=== PATIENT | male | born 1955 | race Caucasian/White ===

== ENCOUNTER → 2018-03-26 | Outpatient (CLI) | payer OTHER ==
[~2018-03-26] MED LIST: ALL300 PO; ASPI325T39 PO; B-COTAB18 PO; HYDR25TA5 PO; INSU1INJ15 SC; LOSA100T65 PO; METF-384 PO; MULT-513 PO; OMEG10007 PO; OMEP20CA9 PO; VITA400C15 PO; potassium PO
== END | disposition home or self-care (01) ==
LOC: C.PATHSPEC 17:29
PROVIDERS: ATTEND Physician Assistant
DX: L28.0 Lichen simplex chronicus (principal)

== ENCOUNTER 2024-03-09 11:08 | Inpatient (IN) ==
--- NOTE | 2024-03-09 11:20 | Emergency Department Note ---
Impression & Plan Sepsis, Acute hypokalemia, Hypomagnesemia, Leukocytosis, Elevated lactic acid level, Acute hypoxemic respiratory failure, Acute dyspnea ED Provider Note HISTORY OF PRESENT ILLNESS: Patient is a 68-year-old male presenting with shortness of breath and lethargy. Patient presents with EMS. Patient reports that he has been running a fever at home for the last few days. He reports that his called 911 today because "she thought I was dying." EMS reports that called due to patient's lethargic behavior. Patient was 84% on room air on EMS arrival. He was placed on 4 L nasal cannula with improvement in his saturations. He was tachycardic and febrile and was given 4 mg of Zofran and oral Tylenol and route. On arrival to the ER, the patient denies any chest pain or shortness of breath. Denies any anticoagulation use. Denies any DVT or PE history. 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 He denies any abdominal pain, nausea or vomiting. Denies any recent travel. Denies any dysuria or hematuria. Denies any significant cough. Patient denies any lower extremity edema. ROS: as above PHYSICAL EXAM: Constitutional: Patient appears in no acute distress. HENT: Head: Normocephalic and atraumatic. Eyes: EOMI, PERRL Mouth/Throat: Mucous membranes moist. Neck: Trachea midline. Neck supple. Cardiovascular: Tachycardic with regular rhythm. No murmurs, rubs or gallops. Intact distal pulses. Pulmonary/Chest: Breath sounds clear and equal bilaterally. No appreciable wheezes. Patient is saturating 84% on room air and was placed on 4 L nasal cannula. Patient is conversationally dyspneic. Abdominal: Abdomen soft, no tenderness, rebound or guarding. Musculoskeletal: No edema, tenderness or deformity noted. Skin: Warm and dry. No rash, erythema, pallor or cyanosis Psychiatric: Appropriate mood and affect for situation. Neurological: Alert and keenly responsive. CN II-XII grossly intact, moving all extremities equally and fully. MDM: - Vitals signs showed fever, hypoxia and tachycardia. Patient was started on 4 L nasal cannula. Given 30 mg IV toradol for fever in ER. - History obtained via patient. History as above. - Chronic conditions affecting care: none - Differential diagnoses include, but are not limited to: UTI; pneumonia; viral syndrome; CVA; intracranial hemorrhage; bacteremia - Order placed for continuous cardiac monitoring. At this time, monitor showed rate of 115 bpm with normal sinus rhythm, per my interpretation. - External medical records reviewed. Neurology visit note dated 07/04/22 was reviewed. Patient follows in their clinic for idiopathic polyneuropathy. - EKG interpreted by myself showed normal sinus rhythm. Rate tachycardic at 116 bpm. QT 334. No acute ischemic changes. - Laboratory workup interpreted by myself showed leukocytosis (WBC 19.50) with left shift; hyponatremia (Na 132); hypokalemia (K 3.3); hyperglycemia (glucose 207); elevated lactate (2.1); hypomagnesemia (Mg 1.5); normal troponin; normal procalcitonin - VBG grossly unremarkable - CXR negative for pneumonia, per my interpretation - Viral respiratory panel negative - Lyme negative - UA negative - Blood cultures obtained - Patient given 2.5L NS and empirically started on zosyn. Patient meets sepsis criteria. - Patient given 20 mEq IV potassium and 1g IV magnesium for electrolyte replacement. - Discussion was had with adult protective caseworker about patient's case and need for admission - Hospitalist consulted for admission. Requested IV vancomycin be added to antibiotic regimen. - [facility] ASSESSMENT AND PLAN: Diagnosis: sepsis; acute dyspnea; leukocytosis; hypokalemia; hypomagnesemia; elevated lactic acid level; acute hypoxic respiratory failure Plan: admit Past Med/Surg History Social History Smoking Status: Never smoker Preferred Language: Yi Feels Safe at Home: Yes Allergies Allergies Allergy/AdvReac Type Severity Reaction Status Date / Time No Known Allergies Allergy Unverified 09/12/14 09:34 Home Meds Home Medications Medication Instructions Recorded Confirmed ASPIRIN (ASPIRIN EC) 325 mg PO DAILY ##0 09/10/14 03/09/24 B-COMPLEX VITAMINS (VITAMIN B 1 tab PO DAILY ##0 09/10/14 03/09/24 COMPLEX) Fish Oil ([place]-3) 1 cap PO DAILY #0 caps 09/10/14 03/09/24 Multivitamins/Minerals (Mvi With 1 tab PO DAILY #0 tabs 09/10/14 03/09/24 Minerals) Tocopheryl Acet,Dl-Alpha (Vitamin 400 inter.unit PO DAILY #0 caps 09/10/14 03/09/24 E) allopurinol 300 mg tablet 300 mg PO DAILY ##30 09/10/14 03/09/24 hydrochlorothiazide 25 mg tablet 25 mg PO DAILY ##30 09/10/14 03/09/24 insulin detemir U-100 100 unit/mL 0 mg SC DAILY ##15 09/10/14 03/09/24 (3 mL) subcutaneous pen (Levemir FlexPen) losartan 100 mg tablet 100 mg PO DAILY ##30 09/10/14 03/09/24 omeprazole 20 mg capsule,delayed 20 mg PO DAILY ##30 09/10/14 03/09/24 release potassium 1 tab PO DAILY ##0 09/10/14 03/09/24 amlodipine 10 mg tablet 10 mg PO DAILY 03/09/24 03/09/24 colchicine 0.6 mg tablet 0.6 mg PO TID 03/09/24 03/09/24 empagliflozin 25 mg tablet 25 mg PO DAILY 03/09/24 03/09/24 (Jardiance) glipizide 10 mg tablet, extended 10 mg PO BID 03/09/24 03/09/24 release 24 hr insulin degludec 200 unit/mL (3 26 unit subcut AMPM 03/09/24 03/09/24 mL) subcutaneous pen (Tresiba FlexTouch U-200 insulin) semaglutide 0.25 mg or 0.5 mg (2 0 mg subcut UD 03/09/24 03/09/24 mg/3 mL) subcutaneous pen injector (Ozempic) tamsulosin 0.4 mg capsule 0.4 mg PO DAILY 03/09/24 03/09/24 Results & Data (ED) Vital Signs Vital Signs - 24 hr 03/09/24 11:20 03/09/24 11:26 03/09/24 11:26 Temperature 38.1 C H Temperature Source Oral Pulse Rate 116 H 116 H Pulse Rate [Right Finger] Pulse Rhythm Regular Respiratory Rate 18 18 Respiratory Effort / Characteristics Non-Labored Spontaneous Respiratory Depth Normal Respiratory Pattern Regular Blood Pressure 131/80 Blood Pressure [Right Arm] Blood Pressure Mean 97 Blood Pressure Mean [Right Arm] Blood Pressure Position Semi-fowlers Blood Pressure Position [Right Arm] Pulse Oximetry 84 L 92 92 Oxygen Delivery Method Nasal Cannula Nasal Cannula Nasal Cannula Oxygen Flow Rate 0 4 4 Sepsis Recent Fever Within 48 Hours Yes Sepsis New/Unexplained Change in Mental Status No Sepsis Action Taken by Nursing No Action Required Oxygen Flow Rate - Titration 4 Pulse Oximetry Post Tiitration 92 03/09/24 11:26 03/09/24 11:38 03/09/24 12:21 Temperature 38.1 C H Temperature Source Oral Pulse Rate 115 H Pulse Rate [Right Finger] 116 H 110 H Pulse Rhythm Respiratory Rate 18 25 H Respiratory Effort / Characteristics Non-Labored Spontaneous Non-Labored Spontaneous Respiratory Depth Normal Normal Respiratory Pattern Regular Regular Blood Pressure Blood Pressure [Right Arm] 131/80 135/87 Blood Pressure Mean Blood Pressure Mean [Right Arm] 97 103 Blood Pressure Position Blood Pressure Position [Right Arm] Semi-fowlers Semi-fowlers Pulse Oximetry 92 95 Oxygen Delivery Method Nasal Cannula Nasal Cannula Oxygen Flow Rate 4 4 Sepsis Recent Fever Within 48 Hours Sepsis New/Unexplained Change in Mental Status Sepsis Action Taken by Nursing Oxygen Flow Rate - Titration Pulse Oximetry Post Tiitration 03/09/24 12:30 03/09/24 13:00 03/09/24 14:40 Temperature Temperature Source Pulse Rate 111 H Pulse Rate [Right Finger] 110 H 110 H Pulse Rhythm Respiratory Rate 22 22 25 H Respiratory Effort / Characteristics Non-Labored Spontaneous Non-Labored Spontaneous Respiratory Depth Normal Normal Respiratory Pattern Regular Regular Blood Pressure 121/84 Blood Pressure [Right Arm] 135/87 120/90 Blood Pressure Mean 96 Blood Pressure Mean [Right Arm] 103 100 Blood Pressure Position Blood Pressure Position [Right Arm] Semi-fowlers Pulse Oximetry 93 92 98 Oxygen Delivery Method Nasal Cannula Nasal Cannula Nasal Cannula Oxygen Flow Rate 4 4 4 Sepsis Recent Fever Within 48 Hours Sepsis New/Unexplained Change in Mental Status Sepsis Action Taken by Nursing Oxygen Flow Rate - Titration Pulse Oximetry Post Tiitration Laboratory Data 03/09/24 11:26 03/09/24 11:26 Lab Results 03/09/24 03/09/24 03/09/24 Range/Units 11:16 11:26 11:26 WBC 19.50 H (4.8-10.8) K/ul RBC 5.41 (4.70-6.10) M/uL Hgb 15.5 (14.0-18.0) g/dl Hct 44.1 (42.0-52.0) % MCV 81.5 (80.0-100.0) fL MCH 28.7 (25.0-34.0) pg MCHC 35.1 (32.0-36.0) g/dL RDW Std Deviation 41.0 (36.4-46.3) fL RDW Coeff of Celine 13.9 (11.5-14.5) % Plt Count 303 (130-400) K/uL MPV 10.0 (9.4-12.4) fL Immature Gran % (Auto) 4.7 % Neut % (Auto) 84.1 % Lymph % (Auto) 3.7 % Jerauld % (Auto) 6.5 % Eos % (Auto) 0.3 % Baso % (Auto) 0.7 % Neut # (Auto) 16.40 H (1.40-6.50) K/uL Lymph # (Auto) 0.73 L (1.20-3.40) K/uL Jerauld # (Auto) 1.26 H (0.11-0.59) K/uL Eos # (Auto) 0.06 (0.00-0.50) K/uL Baso # (Auto) 0.13 (0.00-0.20) K/uL Immature Gran # (Auto) 0.92 H (0.01-0.20) K/uL PT 11.6 (9.0-12.0) Seconds INR 1.1 (0.9-1.1) VBG pH 7.45 H (7.36-7.41) VBG pCO2 38 (38-50) mmHg VBG pO2 60 mmHg VBG HCO3 26 mmol/L VBG O2 Saturation 89.5 % VBG Base Excess 2.4 mEq/L Sodium 132 L (136-145) mmol/L Potassium 3.3 L (3.5-5.1) mmol/L Chloride 98 (98-107) mmol/L Carbon Dioxide 25 (21-32) mmol/L Anion Gap 9 (3-11) BUN 18 (6-23) mg/dl Creatinine 0.97 (0.6-1.4) mg/dl Est Cr Clr Drug Dosing 86.3 ml/min Est GFR ( Amer) 91.3 ml/min Est GFR (Non-Af Amer) 78.8 ml/min BUN/Creatinine Ratio 18.6 (10-20) Glucose 207 H (70-99(Fasting)) mg/dl Lactate 2.1 H* (0.4-2.0) mmol/L Calcium 8.9 (8.6-10.3) mg/dl Magnesium 1.5 L (1.7-2.4) mg/dl Total Bilirubin 0.6 (0.2-1.0) mg/dl Direct Bilirubin 0.2 (0-0.2) mg/dl AST 14 (13-39) U/L ALT 25 (7-52) U/L Alkaline Phosphatase 77 (34-104) U/L Troponin I High Sens 8.3 (0-20) pg/ml Total Protein 6.9 (6.0-8.3) gm/dl Albumin 4.0 (3.4-5.0) gm/dl Procalcitonin 0.37 (0-0.5) ng/ml Urine Color Urine Appearance (Clear) Urine pH (4.5-7.5) Ur Specific Burney (1.000-1.030) Urine Protein (Negative) Urine Glucose (UA) (Negative) Urine Ketones (Negative) Urine Blood (Negative) Urine Nitrite (Negative) Urine Bilirubin (Negative) Urine Urobilinogen (Negative) Ur Leukocyte Esterase (Negative) Urine WBC (Auto) (0-5) /hpf Urine RBC (Auto) (0-2) /hpf U Hyaline Cast (Auto) (0-2) /lpf U Epithel Cells (Auto) (0-2) /hpf Urine Bacteria (Auto) (None Seen) Adenovirus (PCR) Not Detected (NotDetected) Anaplasma Smear See Comment Cancelled B. pertussis DNA (PCR) Not Detected (NotDetected) B.parapertussis DNA PCR Not Detected (NotDetected) Lyme Disease Screen Negative (Negative) C. pneumoniae DNA (PCR) Not Detected (NotDetected) Coronavirus OC43 (PCR) Not Detected (NotDetected) Coronavirus HKU1 (PCR) Not Detected (NotDetected) Coronavirus 229E (PCR) Not Detected (NotDetected) SARS-CoV-2 (PCR) Not Detected (NotDetected) Coronavirus NL63 (PCR) Not Detected (NotDetected) Human Metapneumovir PCR Not Detected (NotDetected) Influenza Type A (PCR) Not Detected (NotDetected) Influenza Type B (PCR) Not Detected (NotDetected) M. pneumoniae (PCR) Not Detected (NotDetected) Parainfluenza 1 (PCR) Not Detected (NotDetected) Parainfluenza 2 (PCR) Not Detected (NotDetected) Parainfluenza 3 (PCR) Not Detected (NotDetected) Parainfluenza 4 (PCR) Not Detected (NotDetected) RSV (PCR) Not Detected (NotDetected) Entero/Rhino (PCR) Not Detected (NotDetected) 03/09/24 03/09/24 Range/Units 13:58 14:06 WBC (4.8-10.8) K/ul RBC (4.70-6.10) M/uL Hgb (14.0-18.0) g/dl Hct (42.0-52.0) % MCV (80.0-100.0) fL MCH (25.0-34.0) pg MCHC (32.0-36.0) g/dL RDW Std Deviation (36.4-46.3) fL RDW Coeff of Celine (11.5-14.5) % Plt Count (130-400) K/uL MPV (9.4-12.4) fL Immature Gran % (Auto) % Neut % (Auto) % Lymph % (Auto) % Jerauld % (Auto) % Eos % (Auto) % Baso % (Auto) % Neut # (Auto) (1.40-6.50) K/uL Lymph # (Auto) (1.20-3.40) K/uL Jerauld # (Auto) (0.11-0.59) K/uL Eos # (Auto) (0.00-0.50) K/uL Baso # (Auto) (0.00-0.20) K/uL Immature Gran # (Auto) (0.01-0.20) K/uL PT (9.0-12.0) Seconds INR (0.9-1.1) VBG pH (7.36-7.41) VBG pCO2 (38-50) mmHg VBG pO2 mmHg VBG HCO3 mmol/L VBG O2 Saturation % VBG Base Excess mEq/L Sodium (136-145) mmol/L Potassium (3.5-5.1) mmol/L Chloride (98-107) mmol/L Carbon Dioxide (21-32) mmol/L Anion Gap (3-11) BUN (6-23) mg/dl Creatinine (0.6-1.4) mg/dl Est Cr Clr Drug Dosing ml/min Est GFR ( Amer) ml/min Est GFR (Non-Af Amer) ml/min BUN/Creatinine Ratio (10-20) Glucose (70-99(Fasting)) mg/dl Lactate 1.9 (0.4-2.0) mmol/L Calcium (8.6-10.3) mg/dl Magnesium (1.7-2.4) mg/dl Total Bilirubin (0.2-1.0) mg/dl Direct Bilirubin (0-0.2) mg/dl AST (13-39) U/L ALT (7-52) U/L Alkaline Phosphatase (34-104) U/L Troponin I High Sens (0-20) pg/ml Total Protein (6.0-8.3) gm/dl Albumin (3.4-5.0) gm/dl Procalcitonin (0-0.5) ng/ml Urine Color Yellow Urine Appearance Clear (Clear) Urine pH 6.5 (4.5-7.5) Ur Specific Burney > 1.045 H (1.000-1.030) Urine Protein 1+ H (Negative) Urine Glucose (UA) 3+ H (Negative) Urine Ketones Negative (Negative) Urine Blood Negative (Negative) Urine Nitrite Negative (Negative) Urine Bilirubin Negative (Negative) Urine Urobilinogen Negative (Negative) Ur Leukocyte Esterase Negative (Negative) Urine WBC (Auto) 0-5 (0-5) /hpf Urine RBC (Auto) 0-2 (0-2) /hpf U Hyaline Cast (Auto) 0-2 (0-2) /lpf U Epithel Cells (Auto) 0-2 (0-2) /hpf Urine Bacteria (Auto) None Seen (None Seen) Adenovirus (PCR) (NotDetected) Anaplasma Smear B. pertussis DNA (PCR) (NotDetected) B.parapertussis DNA PCR (NotDetected) Lyme Disease Screen (Negative) C. pneumoniae DNA (PCR) (NotDetected) Coronavirus OC43 (PCR) (NotDetected) Coronavirus HKU1 (PCR) (NotDetected) Coronavirus 229E (PCR) (NotDetected) SARS-CoV-2 (PCR) (NotDetected) Coronavirus NL63 (PCR) (NotDetected) Human Metapneumovir PCR (NotDetected) Influenza Type A (PCR) (NotDetected) Influenza Type B (PCR) (NotDetected) M. pneumoniae (PCR) (NotDetected) Parainfluenza 1 (PCR) (NotDetected) Parainfluenza 2 (PCR) (NotDetected) Parainfluenza 3 (PCR) (NotDetected) Parainfluenza 4 (PCR) (NotDetected) RSV (PCR) (NotDetected) Entero/Rhino (PCR) (NotDetected) Administered Medications Discontinued Medications Albuterol (Albut/Ipratrop 3mg/0.5mg Neb 3 Ml Vial) 3 ml NEB NOW STA; Protocol Stop: 03/09/24 15:14 Last Admin: 03/09/24 15:19 Dose: 3 ml Documented By: MMN Sodium Chloride (Nss) 1,000 mls @ 999 mls/hr IV .Q1H1M GOPI Stop: 03/09/24 13:30 Last Infusion: 03/09/24 13:50 Dose: Infused Documented By: Admin: 03/09/24 12:24 Dose: 999 mls/hr Documented By: Infusion: 03/09/24 12:23 Dose: Infused Documented By: Admin: 03/09/24 11:21 Dose: 999 mls/hr Documented By: LMM Piperacillin Sod/Tazobactam Sod (Zosyn) 4.5 gm in 100 mls @ 200 mls/hr IV NOW ONE Stop: 03/09/24 12:36 Last Infusion: 03/09/24 13:06 Dose: Infused Documented By: Admin: 03/09/24 12:27 Dose: 200 mls/hr Documented By: LMM Sodium Chloride (Nss) 500 mls @ 999 mls/hr IV .Q31M ONE Stop: 03/09/24 12:58 Last Infusion: 03/09/24 14:00 Dose: Infused Documented By: Admin: 03/09/24 13:29 Dose: 999 mls/hr Documented By: LMM Potassium Chloride ([place] Dale / Wtr) 10 meq in 100 mls @ 100 mls/hr IV Q1H GOPI Stop: 03/09/24 14:29 Last Admin: 03/09/24 14:38 Dose: 100 mls/hr Documented By: Infusion: 03/09/24 14:38 Dose: Infused Documented By: Admin: 03/09/24 13:29 Dose: 100 mls/hr Documented By: LMPham Magnesium Sulfate/Dextrose (Magnesium Sulfate / D5w) 1 gm in 100 mls @ 100 mls/hr IV NOW STA Stop: 03/09/24 13:29 Last Infusion: 03/09/24 14:38 Dose: Infused Documented By: Admin: 03/09/24 13:29 Dose: 100 mls/hr Documented By: LMM Ioversol (Optiray 320 125ml) 118 ml IV ONCE ONE Stop: 03/09/24 13:00 Last Admin: 03/09/24 12:59 Dose: 118 ml Documented By: BELEN Ketorolac Tromethamine (Ketorolac 30 Mg/Ml Vial) 30 mg IV NOW ONE Stop: 03/09/24 12:31 Last Admin: 03/09/24 13:18 Dose: 30 mg Documented By: LMM Imaging Data Radiologist's Impression: Chest X-Ray 03/09/24 11:16 SINGLE VIEW CHEST CLINICAL HISTORY: Sepsis. FINDINGS: 2 AP, portable, upright chest radiographs are obtained. No prior studies are available for comparison at the time of dictation. The examination is degraded by portable technique, apical lordotic positioning, and patient rotation. The heart is enlarged noting atherosclerotic calcification of the thoracic aorta. The pulmonary vasculature is noncongested. There is bibasilar scarring/atelectasis. The lungs and pleural spaces are otherwise clear. No pneumothorax is seen. The skeletal structures are osteopenic. The bony thorax is grossly intact. IMPRESSION: Cardiomegaly with no acute cardiopulmonary abnormality identified. ACT 112: Negative or not required by law. Electronically signed by: Jaspreet Jean M.D. 03/09/2024 11:50 AM Chest CTA 03/09/24 12:30 CT ANGIOGRAM OF THE CHEST CLINICAL HISTORY: Dyspnea. Hypoxia. COMPARISON STUDY: Chest x-ray dated 03/09/2024. TECHNIQUE: Following the IV administration of 118 cc of Optiray 320, CT angiogram of the chest was performed from the upper abdomen to the thoracic inlet utilizing the pulmonary embolus protocol. Images are reviewed in the axial, sagittal, and coronal planes. 3-D MIPS images are created and assessed. IV contrast was administered without complication. A dose lowering technique was utilized adhering to the principles of ALARA. CT DOSE: 933.46 mGy.cm FINDINGS: Thyroid: Imaged portions of the thyroid gland are normal in size and attenuation. Thoracic aorta: There is mild atherosclerotic calcification of the thoracic aorta, which is normal in caliber and demonstrates standard 3-vessel arch anatomy. No dissection is seen. Pulmonary vasculature: The pulmonary trunk is normal in caliber. There are no filling defects identified in main, lobar, or segmental pulmonary branches to suggest pulmonary embolus. Heart: The heart is enlarged and without pericardial effusion. The coronary arteries are densely calcified. Lungs and pleural spaces: Evaluation of the lung parenchyma is degraded by motion artifact. There is no airspace consolidation or pleural effusion. Dependent scarring/atelectasis is noted at both lung bases. The trachea and central airways are clear. Mediastinum: There is no mediastinal lymphadenopathy. Gretel: Clear. Axillae: There is no axillary lymphadenopathy. Upper abdomen: There are calcified gallstones with no CT evidence of acute cholecystitis. The liver is steatotic. The spleen is enlarged measuring 15.3 cm in length. A small hiatal hernia is noted. Skeletal structures: No lytic or blastic bony lesions are seen. Degenerative change is noted in the shoulders and spine. IMPRESSION: 1. There is no evidence of pulmonary embolus in the main, lobar, or segmental pulmonary arteries. 2. Cardiomegaly noting advanced coronary artery atherosclerosis. 3. No airspace consolidation or pleural effusion is identified. 4. Cholelithiasis. 5. Hepatic steatosis and splenomegaly. 6. Additional findings as above. ACT 112: Negative or not required by law. Electronically signed by: Jaspreet Jean M.D. 03/09/2024 1:44 PM Discharge Plan Visit Data Chief Complaint: Illness Stated Complaint: ILLNESS, SOB ED Provider: Laura Ashley Discharge Problem: Sepsis, Acute hypokalemia, Hypomagnesemia, Leukocytosis, Elevated lactic acid level, Acute hypoxemic respiratory failure, Acute dyspnea Forms Stand Alone Forms: My [facility] Prescriptions Prescriptions: No Action ASPIRIN (ASPIRIN EC) 325 MG tablet 325 mg PO DAILY Qty: 0 Patient Comments: Placed on Hold since 09/09 due to nose bleed Rx Instructions: unable to verify. OTC 03/09/24 B-COMPLEX VITAMINS (VITAMIN B COMPLEX) 1 TAB tablet 1 tab PO DAILY Qty: 0 Rx Instructions: unable to verify. OTC 03/09/24 omeprazole 20 mg Capsule,Delayed Release(Dr/Ec) 20 mg PO DAILY Qty: 30 allopurinol 300 mg Tablet 300 mg PO DAILY Qty: 30 hydrochlorothiazide 25 mg Tablet 25 mg PO DAILY Qty: 30 losartan 100 mg Tablet 100 mg PO DAILY Qty: 30 Levemir FlexPen 100 unit/mL (3 mL) Insulin Pen 0 mg SC DAILY Qty: 15 Rx Instructions: on hold on pharmacy list 03/09/24 34 units bid or as directed Fish Oil ([place]-3) 1 EA capsule 1 cap PO DAILY Qty: 0 Rx Instructions: unable to verify. OTC 03/09/24 Multivitamins/Minerals (Mvi With Minerals) tablet 1 tab PO DAILY Qty: 0 Rx Instructions: unable to verify. OTC 03/09/24 Tocopheryl Acet,Dl-Alpha (Vitamin E) 400 INTER.UNIT capsule 400 inter.unit PO DAILY Qty: 0 Rx Instructions: unable to verify. OTC 03/09/24 potassium 1 tab PO DAILY Qty: 0 Rx Instructions: unable to verify. 03/09/24 glipizide 10 mg tablet extended release 24hr 10 mg PO BID Rx Instructions: 30 mins before morning and evening meals. tamsulosin 0.4 mg capsule 0.4 mg PO DAILY amlodipine 10 mg tablet 10 mg PO DAILY colchicine 0.6 mg tablet 0.6 mg PO TID insulin degludec [Tresiba FlexTouch U-200] 200 unit/mL (3 mL) insulin pen 26 unit SUBCUT AMPM Jardiance 25 mg tablet 25 mg PO DAILY Ozempic 0.25 mg or 0.5 mg (2 mg/3 mL) pen injector 0 mg SUBCUT UD Rx Instructions: 0.25 mg weekly for 4 weeks, then increase to 0.5 mg weekly Referrals Referrals: PCP,NO [Physician] -
[2024-03-09] MEDS: SODIUM CHLORIDE 0.9% 1,000 ML IV SCH (11:21)
[2024-03-09 11:43] LABS: Base Excess VBG 2.4 mEq/L; HCO3 VBG 26 mmol/L; Oxygen Saturation VBG 89.5 %; PCO2 VBG 38 mmHg (38-50); PO2 VBG 60 mmHg; pH VBG 7.45 (7.36-7.41)
--- NOTE | 2024-03-09 11:52 | XRay Report ---
SINGLE VIEW CHEST CLINICAL HISTORY: Sepsis. FINDINGS: 2 AP, portable, upright chest radiographs are obtained. No prior studies are available for comparison at the time of dictation. The examination is degraded by portable technique, apical lordot ic positioning, and patient rotation. The heart is enlarged noting atherosclerotic calcification of t he thoracic aorta. The pulmonary vasculature is noncongested. There is bibasilar scarring/atelectasis . The lungs and pleural spaces are otherwise clear. No pneumothorax is seen. The skeletal structures are osteopenic. The bony thorax is grossly intact. IMPRESSION: Cardiomegaly with no acute cardiopulmonary abnormality identified. ACT 112: Negative or not required by law. Electronically signed by: Jaspreet Jean M.D. 03/09/2024 11:50 AM
[2024-03-09 12:06] LABS: Basophils # (auto) 0.13 K/uL (0.00-0.20); Basophils % (auto) 0.7 %; Eosinophils # (auto) 0.06 K/uL (0.00-0.50); Eosinophils % (auto) 0.3 %; Hematocrit (blood only) 44.1 % (42.0-52.0); Hemoglobin 15.5 g/dl (14.0-18.0); Immature Granulocytes # (auto) 0.92 K/uL (0.01-0.20); Immature Granulocytes % (auto) 4.7 %; Lymphocytes # (auto) 0.73 K/uL (1.20-3.40); Lymphocytes % (auto) 3.7 %; Mean Corpuscular Hemoglobin 28.7 pg (25.0-34.0); Mean Corpuscular Hgb Conc 35.1 g/dL (32.0-36.0); Mean Corpuscular Volume 81.5 fL (80.0-100.0); Monocytes # (auto) 1.26 K/uL (0.11-0.59); Monocytes % (auto) 6.5 %; Neutrophils % (auto) 84.1 %; Platelet Count 303 K/uL (130-400); RDW Coefficient of Variation 13.9 % (11.5-14.5); Red Blood Count 5.41 M/uL (4.70-6.10)
[2024-03-09 12:14] LABS: BUN Creatinine Ratio 18.6 (10-20); Bilirubin Direct 0.2 mg/dl (0-0.2); Bilirubin,Total 0.6 mg/dl (0.2-1.0); Calcium 8.9 mg/dl (8.6-10.3); Creatinine Clr Calc Pharmacy 86.3 ml/min; Est GFR (African American) 91.3 ml/min; Est GFR (Non-African American) 78.8 ml/min; Magnesium 1.5 mg/dl (1.7-2.4); Potassium 3.3 mmol/L (3.5-5.1); Total Protein 6.9 gm/dl (6.0-8.3)
[2024-03-09 12:20] LABS: Troponin I High Sensitivity 8.3 pg/ml (0-20)
[2024-03-09 12:24] LABS: INR 1.1 (0.9-1.1); Prothrombin Time 11.6 Seconds (9.0-12.0)
[2024-03-09] MEDS ORDERED: ETOMIDATE 2 MG/ML 20 ML VIAL IV ONE (12:25)
[2024-03-09] MEDS ORDERED: ROCURONIUM BROMIDE 10 MG/ML 5 ML VIAL IV ONE (12:25)
[2024-03-09] MEDS: PIPERACILLIN/TAZOBACTAM 4.5 GM/100 ML BAG IV ONE (12:27)
[2024-03-09] MEDS: OPTIRAY 320 125ml IV ONE (12:59)
[2024-03-09] MEDS: KETOROLAC 30 MG/ML VIAL IV ONE (13:18)
[2024-03-09] MEDS: MAGNESIUM SULFATE / D5W 1 GM/100 ML BAG IV STA (13:29)
[2024-03-09] MEDS: SODIUM CHLORIDE 0.9% 500 ML IV ONE (13:29)
[2024-03-09] MEDS: POTASSIUM CHLORIDE / WTR 10 MEQ/100 ML PLCT IV SCH (13:29)
--- NOTE | 2024-03-09 13:35 | Electrocardiogram Report ---
Test Reason : Blood Pressure : / mmHG Vent. Rate : 116 BPM Atrial Rate : 116 BPM P-R Int : 174 ms QRS Dur : 090 ms QT Int : 334 ms P-R-T Axes : 034 011 -11 degrees QTc Int : 464 ms Sinus tachycardia Nonspecific ST abnormality Otherwise normal ECG No previous ECGs available Confirmed by Pacheco Montgomery ([id number]) on 03/09/2024 1:35:14 PM Referred By: REFERRED SELF Confirmed By:Parag Montgomery
--- NOTE | 2024-03-09 13:45 | CT Scan Report ---
CT ANGIOGRAM OF THE CHEST CLINICAL HISTORY: Dyspnea. Hypoxia. COMPARISON STUDY: Chest x-ray dated 03/09/2024. TECHNIQUE: Following the IV administration of 118 cc of Optiray 320, CT angiogram of the chest was pe rformed from the upper abdomen to the thoracic inlet utilizing the pulmonary embolus protocol. Images are reviewed in the axial, sagittal, and coronal planes. 3-D MIPS images are created and assessed. I V contrast was administered without complication. A dose lowering technique was utilized adhering to the principles of ALARA. CT DOSE: 933.46 mGy.cm FINDINGS: Thyroid: Imaged portions of the thyroid gland are normal in size and attenuation. Thoracic aorta: There is mild atherosclerotic calcification of the thoracic aorta, which is normal in caliber and demonstrates standard 3-vessel arch anatomy. No dissection is seen. Pulmonary vasculature: The pulmonary trunk is normal in caliber. There are no filling defects identif ied in main, lobar, or segmental pulmonary branches to suggest pulmonary embolus. Heart: The heart is enlarged and without pericardial effusion. The coronary arteries are densely calc ified. Lungs and pleural spaces: Evaluation of the lung parenchyma is degraded by motion artifact. There is no airspace consolidation or pleural effusion. Dependent scarring/atelectasis is noted at both lung b ases. The trachea and central airways are clear. Mediastinum: There is no mediastinal lymphadenopathy. Gretel: Clear. Axillae: There is no axillary lymphadenopathy. Upper abdomen: There are calcified gallstones with no CT evidence of acute cholecystitis. The liver i s steatotic. The spleen is enlarged measuring 15.3 cm in length. A small hiatal hernia is noted. Skeletal structures: No lytic or blastic bony lesions are seen. Degenerative change is noted in the s houlders and spine. IMPRESSION: 1. There is no evidence of pulmonary embolus in the main, lobar, or segmental pulmonary arteries. 2. Cardiomegaly noting advanced coronary artery atherosclerosis. 3. No airspace consolidation or pleural effusion is identified. 4. Cholelithiasis. 5. Hepatic steatosis and splenomegaly. 6. Additional findings as above. ACT 112: Negative or not required by law. Electronically signed by: Jaspreet Jean M.D. 03/09/2024 1:44 PM
[2024-03-09 14:32] LABS: Appearance Urine Clear (Clear); Bacteria Urine Automated None Seen (None Seen); Bilirubin Urine Negative (Negative); Blood Urine Negative (Negative); Cast Urine Automated 0-2 /lpf (0-2); Color Urine Yellow; Epithelial Cell Urine Auto 0-2 /hpf (0-2); Glucose Urine UA 3+ (Negative); Ketones Urine Negative (Negative); Leukocyte Esterase Urine Negative (Negative); Nitrite Urine Negative (Negative); Protein Urine 1+ (Negative); RBC Urine Automated 0-2 /hpf (0-2); Specific Gravity Urine > 1.045 (1.000-1.030); Urobilinogen Urine Negative (Negative); WBC Urine Automated 0-5 /hpf (0-5); pH Urine 6.5 (4.5-7.5)
[2024-03-09 14:58] LABS: Adenovirus PCR Not Detected (NotDetected); Bordetella parapertussis PCR Not Detected (NotDetected); Bordetella pertussis PCR Not Detected (NotDetected); Chlamydia pneumoniae PCR Not Detected (NotDetected); Coronavirus 229E PCR Not Detected (NotDetected); Coronavirus CoV-2 (COVID19)PCR Not Detected (NotDetected); Coronavirus HKU1 PCR Not Detected (NotDetected); Coronavirus NL63 PCR Not Detected (NotDetected); Coronavirus OC43PCR Not Detected (NotDetected); Human Metapneumovirus PCR Not Detected (NotDetected); Influenza A PCR Not Detected (NotDetected); Influenza B PCR Not Detected (NotDetected); Mycoplasma pneumoniae PCR Not Detected (NotDetected); Parainfluenza Virus 1 PCR Not Detected (NotDetected); Parainfluenza Virus 2 PCR Not Detected (NotDetected); Parainfluenza Virus 3 PCR Not Detected (NotDetected); Parainfluenza Virus 4 PCR Not Detected (NotDetected); Respiratory Syncytial VirusPCR Not Detected (NotDetected); Rhinovirus/Enterovirus PCR Not Detected (NotDetected)
[2024-03-09] MEDS: ALBUT/IPRATROP 3MG/0.5MG NEB 3 ML VIAL NEB STA (15:19)
[2024-03-09] MEDS ORDERED: VANCOMYCIN CONSULT ACTIVE PRN (15:33)
--- OUTSIDE RECORDS SUMMARY | 2024-03-09 15:41 | External Medical Summary | Summary of Care ---
Author Name Unknown Organization [facility] Address [address] [place] [address] Phone [phone] Care Team Providers Care Nutrition Internship Name Role Phone Brent Johnson DO Primary Care Provider [phone] Reason for Visit * Reason Comments eRx-Medication Refill Encounter Details Date Type Department Care Team (Late st Contact Info) Description 12/10/2023 Telephone Family Practice [facility] [address] [place] [address] Kathryn Sierra PA-C [address] [place] [address] eRx-Medication Refill Allergies Active Allergy Reactions Criticality Noted Date Comments Atorvastatin Other (Please comment) 04/19/2016 Severe joint pain. documented as of this encounter (statuses as of 12/16/2023) Medications Medication Sig Dispensed Refills Start Date End Date Status Blood Glucose Monitoring Suppl (ACCU-CHEK GUIDE) w/Device KIT Use as directed. Use as directed 3 times a day. Diagnosis: E11.9 1 Kit 0 04/26/2019 Active ACCU-CHEK FASTCLIX LANCETS MISC Use as directed 3 times a day. Diagnosis: E11.9 306 Each 3 04/26/2019 Active Ibuprofen 800 MG Oral Tablet (MOTRIN)Indication s:Gout TAKE 1 TABLET BY MOUTH THREE TIMES DAILY WITH MEALS NEEDED 100 Tab 3 08/17/2020 Active Aspirin 325 MG Oral Tablet Take 1 Tablet by mouth in the morning. 0 Active B Complex 100 TR Oral Tablet Extended Release Take by mouth . 0 Active Multi-Vitamin Daily Oral Tablet Take 1 Tablet by mouth in the morning. 0 Active Potassium 75 MG Oral Tablet Take 1 Tablet by mouth in the morning. 0 Active Vitamin E 400 UNIT Oral Tablet Take 1 Tablet by mouth in the morning. 0 Active EQL Fiber Laxative 625 MG Oral Tablet (Calcium Polycarbophil) Take 1 Tablet by mouth in the morning. 0 Active Omeprazole 20 MG Oral Capsule Delayed Release (PriLOSEC)Indicati ons:GERD (gastroesophageal reflux disease) TAKE 1 CAPSULE BY MOUTH DAILY 30 Capsule 5 05/21/2023 Active Allopurinol 300 MG Oral Tablet (Zyloprim)Indicati ons:Gout TAKE 1 TABLET BY MOUTH ONCE DAILY 30 Tablet 5 05/21/2023 Active OneTouch Ultra In Vitro Strip (Glucose Blood) USE DIRECTED 3 TIMES A DAY. 300 Strip 1 06/27/2023 Active BD Pen Needle Mini U/F 31G X 5 MM (Insulin Pen Needle) USE TWICE A DAY. 200 Each 1 07/23/2023 Active Tamsulosin HCl 0.4 MG Oral Capsule (Flomax) TAKE 1 CAPSULE BY MOUTH DAILY 90 Capsule 2 08/21/2023 Active Losartan Potassium 100 MG Oral Tablet (Cozaar)Indication s:HTN, goal below 140/90 TAKE ONE TABLET BY MOUTH DAILY. 30 Tablet 10/23/2023 Active Jardiance 25 MG Oral Tablet (Empagliflozin)Ind ications:Type 2 diabetes mellitus with hemoglobin A1c goal of less than 7.0% (HCC) TAKE 1 TABLET BY MOUTH ONCE DAILY 30 Tablet 10/23/2023 Active hydroCHLOROthiazid e 25 MG Oral Tablet (Hydrodiuril)Indic ations:HTN, goal below 140/90 TAKE 1 TABLET BY MOUTH ONCE DAILY 30 Tablet 10/23/2023 Active glipiZIDE ER 10 MG Oral Tablet Extended Release 24 Hour (Glucotrol XL)Indications:Typ e 2 diabetes mellitus with hemoglobin A1c goal of less than 7.0% (HCC) TAKE 1 TABLET BY MOUTH TWICE DAILY 30 MINUTES BEFORE MORNING AND EVENING MEALS. 60 Tablet 10/23/2023 Active Colchicine 0.6 MG Oral Tablet TAKE 1 TABLET BY MOUTH 3 TIMES DAILY OR DIRECTED. 90 Tablet 10/23/2023 Active Ozempic (0.25 or 0.5 MG/DOSE) 2 MG/1.5ML Solution Pen-injector (Semaglutide(0.25 or 0.5MG/DOS)) Inject .25 mg weekly for 4 weeks and then increase to .5 mg weekly after that 1.5 mL 5 10/22/2023 Active amLODIPine Besylate 10 MG Oral Tablet (Norvasc)Indicatio ns:HTN, goal below 140/90 TAKE 1 TABLET BY MOUTH ONCE DAILY 30 Tablet 5 11/19/2023 Active Tresiba FlexTouch 200 UNIT/ML Subcutaneous Solution Pen-injector (Insulin Degludec)Indicatio ns:Type 2 diabetes mellitus with hemoglobin A1c goal of less than 7.0% (HCC) Inject 26 Units under the skin in the morning and 26 Units in the evening. 15 mL 5 12/16/2023 Active Levemir FlexPen 100 UNIT/ML Subcutaneous Solution Pen-injector (Insulin Detemir)Indication s:Type 2 diabetes mellitus with hemoglobin A1c goal of less than 7.0% (HCC) Inject 34 Units under the skin 2 times a day with morning and evening meals. INJECT 34 UNITS UNDER THE SKIN TWICE A DAY OR DIRECTED.. Strength: 100 UNIT/ML 60 mL 5 11/20/2023 4 Discontinued Levemir FlexPen 100 UNIT/ML Subcutaneous Solution Pen-injector (Insulin Detemir)Indication s:Type 2 diabetes mellitus with hemoglobin A1c goal of less than 7.0% (HCC) INJECT 34 UNITS 2 TIMES DAILY (MORNING & EVENING MEALS), OR DIRECTED. 15 mL 2 12/10/2023 4 Discontinued documented as of this encounter (statuses as of 12/16/2023) Active Problems Problem Noted Date Diagnosed Date Gastroesophageal reflux disease without esophagi tis 03/25/2023 Statin intolerance 06/16/2017 Type 2 diabetes mellitus wit h hemoglobin A1c goal of less than 7.0% 07/12/2011 Overview: ICD-10 update of inactive term BMI 35-39 ISOLATED (SEE ACTUAL BMI) 05/07/2010 Overview: Per Obesity Protocol, #19 Dyslipidemia, goal to be determined 08/10/2004 HTN, goal below 140/90 Gout documented as of this encounter (statuses as of 12/16/2023) Resolved Problems Problem Noted Date Diagnosed Date Resolved Date ADVANCE DIRECTIVE INFORMATION 07/05/2005 09/16/2016 Overview: No, Advance Directive brochure given to patient. Screening for prostate cancer 08/10/2004 02/01/2009 Overview: Resolved per Screening Diagnosis Protocol #6 documented as of this encounter (statuses as of 12/16/2023) Immunizations Name Administration Dates Next Due COVID-19 mRNA, LNP-s, No Pre serve, 2-Dose Series (Pfizer) 01/30/2021,01/09/2021 Pneumococcal Conjugate Vacc, 13 Valent (Prevnar) 10/29/2018 Pneumococcal Polysaccharide PPV23 (Pneumovax) 09/12/2011 Season Influenza, Quad, PF, Adjuvanted, 65+ Yrs, IM (FLUAD) 09/11/2020 Seasonal Influenza, PF, 6 M & above, IM , (FluLaval or Fluzone) 10/29/2018,11/06/2017 Seasonal Influenza, Quadriva lent Hd (Fluzone Hd) 10/22/2023 Seasonal Influenza, Quadriva lent Hd, 65+ Yrs 10/09/2021 Seasonal Influenza, Quadriva lent, No Preserve, IM 09/16/2016 Seasonal Influenza, Split, I IV3, With Preserve, Inj 09/02/2014,09/12/2011,09/30/2002 TD, Preservative Free 03/12/2022 TDAP (age 11 and older)(Adacel) 07/06/2010 documented as of this encounter Social History Tobacco Use Types Packs/Day Years Used Date Smoking Tobacco: Never Smokeless Tobacco: Never Alcohol Use Standard Drinks/Week Comments No 0 (1 standard drink = 0.6 oz pur e alcohol) PHQ-2 Answer Date Recorded PHQ Adult Total Score 0 03/26/2021 Sex and Gender Information Value Date Recorded Sex Assigned at Not on file Gender Identity Not on file Sexual Orientation Not on file Job Start Date Occupation Industry Not on file Not on file Not on file documented as of this encounter Miscellaneous Notes * Telephone Encounter - Holly Lucero, [facility] - 12/16/2023 1:43 PM EST Called pt to advise. He is agreeable and thanks PCP for his help. Thanks, Holly Lucero [facility] Clinical Pharmacist [facility] ([facility]) (Formerly Telepharmacy) [phone] * Addendum Note - Brent Johnson DO - 12/16/2023 1:02 PM ESTAddended by: BRENT JOHNSON on: 12/16/2023 01:02 PM Modules accepted: Orders * Telephone Encounter - Brent Johnson DO - 12/16/2023 1:02 PM EST I sent for Tresiba to the pharmacy for him with an adjustment to his dosing. * Telephone Encounter - Holly Lucero RPh - 12/16/2023 9:30 AM EST Submitted prior authorization for Levemir via [employer] (Vazquez: [id number]). Instructed by [employer] to call patients insurance at Basaglar, Insulin Glargine Solostar, Semglee, Toujeo and Tresiba do not require prior auth and we could consider subsituting if agreeable. Tresiba is in stock at patients pharmacy. Please advise. Thanks, Holly Lucero [facility] Clinical Pharmacist [facility] ([facility]) (Formerly Telepharmacy) [phone] * Telephone Encounter - Kierra Dillon certified adaptive physical educator - 12/11/2023 10:02 AM EST This is a new PA request. Upon review of this prior authorization request, I verified this request is appropriate. This is prescribed by a department for which [facility] is authorized to review prior authorizations This is not a duplicate encounter regarding the same prior authorization The patient is planning to use insurance The insurance information listed in previous note is correct and the plan that is requiring prior authorization The insurance does not cover either brand or generic forms of this script as written without prior authorization The insurance does not cover any NDCs of this script without prior authorization RX Estimate tool is unable to determine coverage of requested script Of note, there is nothing currently pending in Center for this request. Please advise how to proceed. Thanks, Kierra Dillon [employer] [facility] ([facility]) 12/11/2023,10:02 AM * Telephone Encounter - Kierra Hernandez PHARM Tech - 12/10/2023 2:58 PM EST Pharmacy calling to inform doctor that the patient's insurance will not pay for this medication. Did confirm this information with the pharmacy. Pt's current insurance information is as follows: Patient name: Meliton Hendricks ID number: [id number] BIN number: [id number] PCN number: Group number: [id number] Subscriber name: Meliton Hendricks Primary or Secondary Insurance:Primary Medication: Levemir FlexPen 100 UNIT/ML Reason for Request: not covered Pharmacy and phone number: [facility] [id number] Rx plan and phone number: [employer] [phone] Is this a new medication for the patient? No. How did the patient obtain the medication on the lastfill? It was covered last time on this same insurance. What alternative medications does the pharmacy have in stock?: katharina Thank you, Kierra Hernandez CPhT [employer] [facility] ([facility]) (formerly Telepharmacy) 12/10/2023,2:58 PM * Telephone Encounter - Brent Johnson DO - 12/10/2023 2:47 PM ESTSigned Prescriptions: Disp Refills Levemir FlexPen 100 UNIT/ML Subcutaneous S*15 mL 2 Sig: INJECT 34 UNITS 2 TIMES DAILY (MORNING & EVENING MEALS), OR DIRECTED. Authorizing Provider: BRENT JOHNSON * Telephone Encounter - Holly Lucero [facility] - 12/10/2023 2:36 PM EST Pending Prescriptions: Disp Refills Levemir FlexPen 100 UNIT/ML Subcutaneous S*15 mL 2 Sig: INJECT 34 UNITS 2 TIMES DAILY (MORNING & EVENING MEALS), OR DIRECTED. * Telephone Encounter - Holly Lucero [facility] - 12/10/2023 2:35 PM EST Unable to authorize medication refills for pended medication(s) at this time. Part of the protocol criteria used for refill authorization was not satisfied. Patient needs A1C <7%. Please approve if appropriate. Thanks, Holly Lucero [facility] Clinical Pharmacist [facility] ([facility]) (Formerly [facility] [facility]) [phone] HEMOGLOBIN A1C - [facility] Date/Time Value Ref Range Status 10/30/2023 09:53 AM 9.2 (H) 4.0 - 5.6 % Final Comment: The use of HbA1c to monitor glycemic status is based on normal hemoglobin and HbA composition. Thistest should not be used in patients with abnormal hemoglobin that affects the half life of the red blood cell or the in vivo glycation rates. 08/04/2020 07:25 AM 8.1 (H) 4.0 - 5.6 % Final Comment: The use of HbA1c to monitor glycemic status is based on normal hemoglobin and HbA composition. This test should not be used in patients with abnormal hemoglobin that affects the half life of the red blood cell or the in vivo glycation rates. documented in this encounter Plan of Treatment Upcoming Encounters Date Type Department Care Team (Late st Contact Info) Description 05/19/2024 10:20 AM EDT Office Visit Family Practice [facility] [place] [address] [place], [place] [address] Brent Johnson DO [address] [place] [address] Health Maintenance Due Date Last Done Comments Hepatitis C Screening 1971 Fecal Occult Blood Test 1998 Sigmoidoscopy 1998 Zoster Vaccines (1 of 2) 2003 Hepatitis B (1 of 3 - Risk 3-dose series) 2013 Colonoscopy 11/14/2015 11/14/2005 Pneumococcal Vaccine: 65+ Years (3 - PPSV23 or PCV20) 10/29/2019 10/29/2018, 09/12/2011 Depression Screening 03/26/2022 03/26/2021 COVID-19 Vaccine (3 - season) 2023 01/30/2021, 01/09/2021 HbA1c 04/30/2024 10/30/2023, 02/23, 08/05/2022, Additional history exists Diabetic Eye Exam 10/10/2024 10/10/2023, , 05/24/2021, Additional history exists Diabetic Foot Exam 10/22/2024 10/22/2023, 0 08/12/2022, 03/26/2021, Additional history exists Albumin/Creatinine Ratio 10/30/2024 023, 08/31/2018, 12/19/2016, Additional history exists GFR 10/30/2024 10/30/2023, 07/25, 06/01/2021, Additional history exists Cologuard 10/29/2025 10/29/2022, 09/26, 10/23/2022 Colorectal Cancer Screening 10/29/2025 Lipid Panel 10/30/2028 10/30/2023, 07/25, 06/01/2021, Additional history exists DTaP,Tdap,and Td Vaccines (3 - Td or Tdap) 03/12/2032 03/12/2022, 07/06/2010 Influenza Vaccine (FLU shot) Completed , 10/09/2021, 09/11/2020, Additional history exists GARDASIL-HPV IMMUNIZATION SERIES Aged Out No longer eligible based on patient's age to complete this topic MENINGOCOCCAL (MENACTRA/MENVEO) Aged Out No longer eligible based on patient's age to complete this topic documented as of this encounter Medical Devices Not on filedocumented as of this encounter Visit Diagnoses Diagnosis Type 2 diabetes mellitus with hemoglobin A1c goal of less than 7.0% (HCC) documented in this encounter Care Teams Nutrition Internship Relationship Specialty Start Date End Date Brent Johnson DO [address] [place] [address] PCP - General Family Medicine 10/16/21 documented as of this encounter
--- OUTSIDE RECORDS SUMMARY | 2024-03-09 15:41 | External Medical Summary | Summary of Care ---
Author Name Unknown Organization [facility] Address [address] [place] [address] Phone [phone] Care Team Providers Care Shaping Machine Operator Name Role Phone Brent Johnson DO Primary Care Provider [phone] Reason for Visit * Reason Comments eRx-Medication Refill Encounter Details Date Type Department Care Team (Late st Contact Info) Description 12/29/2023 [facility] [address] [place] [address] Eli Castillo DO [address] [place] [address] GOUT NOS; GERD (gastroesophageal reflux disease) Allergies Active Allergy Reactions Criticality Noted Date Comments Atorvastatin Other (Please comment) 04/19/2016 Severe joint pain. documented as of this encounter (statuses as of 12/30/2023) Medications Medication Sig Dispensed Refills Start Date [...] by mouth in the morning. 0 Active OneTouch Ultra In Vitro Strip (Glucose [...] TABLET BY MOUTH ONCE DAILY 30 Tablet 11 10/23/2023 Active hydroCHLOROthiazid e 25 MG Oral [...] hemoglobin A1c goal of less than 7.0% ([facility]) Inject 26 Units under the skin in the morning and 26 Units in the evening. 15 mL 5 12/16/2023 Active Allopurinol 300 MG Oral Tablet (Zyloprim)Indicati ons:Gout TAKE 1 TABLET BY MOUTH ONCE DAILY 90 Tablet 3 12/30/2023 Active Omeprazole 20 MG Oral Capsule Delayed Release (PriLOSEC)Indicati ons:GERD (gastroesophageal reflux disease) TAKE 1 CAPSULE BY MOUTH DAILY 90 Capsule 3 12/30/2023 Active Omeprazole 20 MG Oral Capsule Delayed Release (PriLOSEC)Indicati ons:GERD (gastroesophageal reflux disease) TAKE 1 CAPSULE BY MOUTH DAILY 30 Capsule 5 05/21/2023 4 Discontinued Allopurinol 300 MG Oral Tablet (Zyloprim)Indicati ons:Gout TAKE 1 TABLET BY MOUTH ONCE DAILY 30 Tablet 5 05/21/2023 4 Discontinued documented as of this encounter (statuses as of 12/30/2023) Active Problems Problem Noted Date Diagnosed Date [...] as of this encounter (statuses as of 12/30/2023) Resolved Problems Problem Noted Date Diagnosed Date Resolved Date ADVANCE DIRECTIVE INFORMATION 07/05/2005 09/16/2016 Overview: No, Advance Directive brochure given to patient. Screening for prostate cancer 08/10/2004 02/01/2009 Overview: Resolved per Screening Diagnosis Protocol #6 documented as of this encounter (statuses as of 12/30/2023) Immunizations Name Administration Dates Next Due COVID-19 mRNA, LNP-s, No Pre serve, 2-Dose Series (Pfizer) 01/30/2021,01/09/2021 Pneumococcal Conjugate Vacc, 13 Valent (Prevnar) 10/29/2018 Pneumococcal Polysaccharide PPV23 (Pneumovax) Season Influenza, Quad, PF, Adjuvanted, 65+ Yrs, IM (FLUAD) 09/11/2020 Seasonal Influenza, PF, 6 M & above, IM , (FluLaval or Fluzone) 10/29/2018,11/06/2017 Seasonal Influenza, Quadrivalent Hd (Fluzone Hd) 10/22/2023 Seasonal Influenza, Quadrivalent Hd, 65+ Yrs Seasonal Influenza, Quadrivalent, No Preserve, I M 09/16/2016 Seasonal Influenza, Split, IIV3, With Preserve, Inj 09/02/2014,09/12/2011 TD, Preservative Free 03/12/2022 TDAP (age 11 [...] encounter Miscellaneous Notes * Telephone Encounter - Criselda Eldridge [facility] - 12/30/2023 11:44 AM ESTSigned Prescriptions: Disp Refills Allopurinol 300 MG Oral Tablet (Zyloprim) 90 Tab*3 Sig: TAKE 1 TABLET BY MOUTH ONCE DAILYAuthorizing Provider: BRENT JOHNSON User: CRISELDA ELDRIDGE Omeprazole 20 MG Oral Capsule Delayed Rele*90 Cap*3 Sig: TAKE 1 CAPSULE BY MOUTH DAILYAuthorizing Provider:BRENT JOHNSON User: CRISELDA ELDRIDGE documented in this encounter Plan of Treatment Upcoming Encounters Date Type Department Care Team (Late st Contact Info) Description 05/19/2024 10:20 AM EDT Office Visit Family Practice [facility] [address] [place] [address] Brent Johnson DO [address] [facility] [place] [address] Health Maintenance Due Date Last Done Comments Hepatitis C Screening 1971 Fecal Occult Blood Test 1998 Sigmoidoscopy 1998 Zoster Vaccines (1 of 2) 2003 Hepatitis B (1 of 3 - Risk 3-dose series) 2013 Colonoscopy 11/14/2015 11/14/2005 Pneumococcal Vaccine: 65+ Years (3 - PPSV23 or PCV20) 10/29/2019 10/29/2018, 09/12/2011 Depression Screening 03/26/2022 03/26/2021 COVID-19 Vaccine ( - season) 2023 01/30/2021, 01/09/2021 HbA1c 04/30/2024 [...] as of this encounter Visit Diagnoses Diagnosis GOUT NOS Gout, unspecified GERD (gastroesophageal reflux disease) Esophageal reflux documented in this encounter Care Teams Shaping Machine Operator Relationship Specialty Start Date End Date Brent Johnson DO [address] [place] [address] PCP - General Family Medicine 10/16/21 documented as of this encounter
--- OUTSIDE RECORDS SUMMARY | 2024-03-09 15:41 | External Medical Summary | Summary of Care ---
Author Name Unknown Organization [facility] Address [address] [place] [address] Phone [phone] Care Team Providers Care Tire Changer [employer] Name Role Phone Brent Johnson DO Primary Care Provider [phone] Reason for Visit * Reason Comments eRx-Medication Refill Encounter Details Date Type Department Care Team (Late st Contact Info) Description 02/16/2024 Refill Family Practice [facility] [address] [place] [address] Brent Johnson DO [address] [facility] [place] [address] Allergies Active Allergy Reactions Criticality Noted Date Comments Atorvastatin Other (Please comment) 04/19/2016 Severe joint pain. documented as of this encounter (statuses as of 02/17/2024) Medications Medication Sig Dispensed Refills Start Date [...] A DAY. 300 Strip 1 06/27/2023 Active Tamsulosin HCl 0.4 MG Oral Capsule [...] .5 mg weekly after that 1.5 mL 10/22/2023 Active amLODIPine Besylate 10 MG Oral [...] MOUTH DAILY 90 Capsule 3 12/30/2023 Active BD Pen Needle Mini U/F 31G X 5 MM (Insulin Pen Needle) USE TWICE A DAY. 200 Each 3 02/17/2024 Active BD Pen Needle Mini U/F 31G X 5 MM (Insulin Pen Needle) USE TWICE A DAY. 200 Each 1 07/23/2023 4 Discontinued documented as of this encounter (statuses as of 02/17/2024) Active Problems Problem Noted Date Diagnosed Date [...] as of this encounter (statuses as of 02/17/2024) Resolved Problems Problem Noted Date Diagnosed Date Resolved Date ADVANCE DIRECTIVE INFORMATION 07/05/2005 09/16/2016 Overview: No, Advance Directive brochure given to patient. Screening for prostate cancer 08/10/2004 02/01/2009 Overview: Resolved per Screening Diagnosis Protocol #6 documented as of this encounter (statuses as of 02/17/2024) Immunizations Name Administration Dates Next Due COVID-19 mRNA, LNP-s, No Pre serve, 2-Dose Series (Humouno) 01/30/2021,01/09/2021 Pneumococcal Conjugate Vacc, 13 Valent (Prevnar) [...] encounter Miscellaneous Notes * Telephone Encounter - Socorro Kendrick [facility] - 02/17/2024 4:18 PM EDTSigned Prescriptions: Disp Refills BD Pen Needle Mini U/F 31G X 5 MM (Insulin*200 Ea*3 Sig: USE TWICE A DAY.Authorizing Provider: BRENT JOHNSON User: SOCORRO KENDRICK documented in this encounter Plan of Treatment Upcoming Encounters Date Type Department Care Team (Late st Contact Info) Description 05/19/2024 10:20 AM EDT Office Visit Family Practice [facility] [address] [place] [address] Brent Johnson DO [address] [facility] [place] [address] Health Maintenance Due Date Last Done Comments Hepatitis C Screening 1971 Fecal Occult Blood Test 1998 Sigmoidoscopy 1998 Zoster Vaccines (1 of 2) 2003 Colonoscopy 11/14/2015 11/14/2005 Pneumococcal Vaccine: 65+ Years (3 of 3 - PPSV23 or PCV20) 10/29/2019 10/29/2018, 09/12/2011 Depression Screening 03/26/2022 03/26/2021 COVID-19 Vaccine (3 - 2022- season) 2023 01/30/2021, 01/09/2021 HbA1c 04/30/2024 10/30/2023, [...] on patient's age to complete this topic Hepatitis B Aged Out No longer eligi ble based on patient's age to complete this topic MENINGOCOCCAL (MENACTRA/MENVEO) Aged Out No longer eligible based on patient's age to complete this topic documented as of this encounter Medical Devices Not on filedocumented as of this encounter Care Teams Tire Changer Aircraft Relationship Specialty Start Date End Date Brent Johnson DO [address] [place] [address] PCP - General Family Medicine 10/16/21 documented as of this encounter
--- OUTSIDE RECORDS SUMMARY | 2024-03-09 15:42 | External Medical Summary ---
Author Name Unknown Address Unknown Organization K09[facility] [address] [place] [id number] Laboratory Report Ordering Provider Test Date Status ELIZABETH KENNEDY 10/30/2023 09:53:16 Final

null Observation Date Value Abnormality Reference (Units ) Status BUN 10/30/2023 09:53:16 18 6-20 (mg/dL) Final Creatinine 10/30/2023 09:53:16 0.89 0.6-1.2 (mg/dL) Final Glomerular filtration rate/1.73 sq M.predicted [Volume Rate/Area] in Serum, Plasma or Blood by Creatinine-based formula (CKD-EPI) 10/30/2023 09:53:16 >90 >=60 (mL/min) Final eGFR is calculated based on the CKD-EPI 2020 equation SODIUM 10/30/2023 09:53:16 138 135-146 (m mol/L) Final Potassium 10/30/2023 09:53:16 4.3 3.5-5.1 (m mol/L) Final Cl 10/30/2023 09:53:16 98 98-107 (mm ol/L) Final CO2 10/30/2023 09:53:16 27 22-32 (mmo l/L) Final Anion gap 10/30/2023 09:53:16 13 7-15 (mmol /L) Final Glucose 10/30/2023 09:53:16 148 Above high normal 70 -120 (mg/dL) Final Albumin 10/30/2023 09:53:16 4.8 3.8-5.0 (g /dL) Final AST (Aspartate aminotransferase) 10/30/2023 09:53:16 23 10-50 (U/L) Fin al Alk Phos 10/30/2023 09:53:16 72 35-130 (U/ L) Final Bilirubin, Total 10/30/2023 09:53:16 0.5 <=1 .2 (mg/dL) Final Calcium 10/30/2023 09:53:16 9.7 8.4-10.2 ( mg/dL) Final Protein 10/30/2023 09:53:16 6.8 6.0-8.3 (g /dL) Final ALT (Alanine aminotransferase) 10/30/2023 09:53:16 42 10-50 (U/L) Malcolm murillo Performing Location [facility] [place] [address]
--- OUTSIDE RECORDS SUMMARY | 2024-03-09 15:42 | External Medical Summary ---
Author Name Unknown Address Unknown Organization K09[facility] [place] [address] Laboratory Report Ordering Provider Test Date Status MJ SWAIN 10/30/2023 09:53:16 Final Observation Date Value Abnormality Reference (Units ) Status Magnesium 10/30/2023 09:53:16 2.1 1.5-2.6 (m g/dL) Final Performing Location [facility] [place] [address]
--- OUTSIDE RECORDS SUMMARY | 2024-03-09 15:42 | External Medical Summary | Summary of Care ---
Author Name Unknown Organization [facility] Address [address] [place] [address] Phone [phone] Care Team Providers Care Color Maker Name Role Phone Harley West DO Primary Care Provider [phone] Encounter Details Date Type Department Care Team (Late st Contact Info) Description 10/15/2023 Orders Only Family Practice [facility] [place] [address] [facility] [place] [id number] Harley West DO 200 [facility] [place] [address] Allergies Active Allergy Reactions Criticality Noted Date Comments Atorvastatin Other (Please comment) 04/19/2016 Severe joint pain. documented as of this encounter (statuses as of 10/15/2023) Medications Medication Sig Dispensed Refills Start Date End Date Status Blood Glucose Monitoring Suppl (ACCU-CHEK GUIDE) w/Device KIT Use as directed. Use as directed 3 times a day. Diagnosis: E11.9 1 Kit 0 04/26/2019 Active ACCU-CHEK FASTCLIX LANCETS MISC Use as directed 3 times a day. Diagnosis: E11.9 306 Each 3 04/26/2019 Active Ibuprofen 800 MG Oral Tablet (MOTRIN)Indications:G out TAKE 1 TABLET BY MOUTH THREE TIMES [...] by mouth in the morning. 0 Active Semaglutide 3 MG Oral Tablet (Rybelsus)Indications :Type 2 diabetes mellitus with hemoglobin A1c goal of less than 7.0% (HCC) Take 3 mg by mouth daily first thing in the morning. 30 Tablet 5 03/25/2023 Active Omeprazole 20 MG Oral Capsule Delayed Release (PriLOSEC)Indications :GERD (gastroesophageal reflux disease) TAKE 1 CAPSULE BY MOUTH DAILY 30 Capsule 05/21/2023 Active Allopurinol 300 MG Oral Tablet (Zyloprim)Indications :Gout TAKE 1 TABLET BY MOUTH ONCE DAILY 30 Tablet 5 05/21/2023 Active amLODIPine Besylate 10 MG Oral Tablet (Norvasc)Indications: HTN, goal below 140/90 TAKE 1 TABLET BY MOUTH ONCE DAILY 30 Tablet 5 05/21/2023 Active OneTouch Ultra In Vitro Strip (Glucose Blood) USE DIRECTED 3 TIMES A DAY. 300 Strip 1 06/27/2023 Active Losartan Potassium 100 MG Oral Tablet (Cozaar)Indications:H TN, goal below 140/90 TAKE ONE TABLET BY MOUTH DAILY. 30 Tablet 2 07/23/2023 Active Colchicine 0.6 MG Oral Tablet TAKE 1 TABLET BY MOUTH 3 TIMES DAILY OR DIRECTED. 90 Tablet 2 07/23/2023 Active Jardiance 25 MG Oral Tablet (Empagliflozin)Indica tions:Type 2 diabetes mellitus with hemoglobin A1c goal of less than 7.0% (HCC) TAKE 1 TABLET BY MOUTH ONCE DAILY 30 Tablet 2 07/23/2023 Active glipiZIDE ER 10 MG Oral Tablet Extended Release 24 Hour (Glucotrol XL)Indications:Type 2 diabetes mellitus with hemoglobin A1c goal of less than 7.0% (HCC) TAKE 1 TABLET BY MOUTH TWICE DAILY 30 MINUTES BEFORE MORNING AND EVENING MEALS. 60 Tablet 2 07/23/2023 Active hydroCHLOROthiazide 25 MG Oral Tablet (Hydrodiuril)Indicati ons:HTN, goal below 140/90 TAKE 1 TABLET BY MOUTH ONCE DAILY 30 Tablet 2 07/23/2023 Active BD Pen Needle Mini U/F 31G X 5 MM (Insulin Pen Needle) USE TWICE A DAY. 200 Each 1 07/23/2023 Active Tamsulosin HCl 0.4 MG Oral Capsule (Flomax) TAKE 1 CAPSULE BY MOUTH DAILY 90 Capsule 2 08/21/2023 Active Levemir FlexPen 100 UNIT/ML Subcutaneous Solution Pen-injector (Insulin Detemir)Indications:T ype 2 diabetes mellitus with hemoglobin A1c goal of less than 7.0% ([facility]) INJECT 34 UNITS UNDER THE SKIN TWICE A DAY OR DIRECTED.. 60 mL 0 09/02/2023 Active documented as of this encounter (statuses as of 10/15/2023) Active Problems Problem Noted Date Diagnosed Date [...] as of this encounter (statuses as of 10/15/2023) Resolved Problems Problem Noted Date Diagnosed Date Resolved Date ADVANCE DIRECTIVE INFORMATION 07/05/2005 09/16/2016 Overview: No, Advance Directive brochure given to patient. Screening for prostate cancer 08/10/2004 02/01/2009 Overview: Resolved per Screening Diagnosis Protocol #6 documented as of this encounter (statuses as of 10/15/2023) Immunizations Name Administration Dates Next Due COVID-19 mRNA, LNP-s, No Pre serve, 2-Dose Series (Pfizer) 01/30/2021,01/09/2021 Pneumococcal Conjugate Vacc, 13 Valent (Prevnar) 10/29/2018 Pneumococcal Polysaccharide PPV23 (Pneumovax) SEASONAL INFLUENZA, PF, 6 M & Above, IM , (FLULAVAL or FLUZONE) 10/29/2018,11/06/2017 Season Influenza, Quad, PF, Adjuvanted, 65+ Yrs, IM (FLUAD) 09/11/2020 Seasonal Influenza, Quadrivalent Hd, 65+ Yrs Seasonal [...] on file documented as of this encounter Plan of Treatment Upcoming Encounters Date Type Department Care Team (Late st Contact Info) Description 10/22/2023 9:20 AM EST Office Visit Family Practice [place] [address] [facility] [place] [address] Harley West, 200 [facility] [place] [address] Health Maintenance Due Date Last Done Comments Hepatitis C Screening 1971 Fecal Occult Blood Test 1998 Sigmoidoscopy 1998 Zoster Vaccines (1 of 2) 2003 Hepatitis B (1 of 3 - Risk 3-dose series) 2013 Colonoscopy 11/14/2015 11/14/2005 Albumin/Creatinine Ratio 08/31/2019 018, 12/19/2016, 07/10/2015, Additional history exists Pneumococcal Vaccine: 65+ Years (3 - PPSV23 or PCV20) 10/29/2019 10/29/2018, 09/12/2011 Depression Screening 03/26/2022 03/26/2021 COVID-19 Vaccine (3 - 2022- season) 2023 01/30/2021, 01/09/2021 Influenza Vaccine (FLU shot) (#1) 2023 10/09/2021, 09/11/2020, 10/29/2018, Additional history exists GFR 08/05/2023 08/05/2022, 07/0 07/2021, 08/04/2020, Additional history exists Diabetic Eye Exam 08/09/2023 10/10/2023, , 05/24/2021, Additional history exists Diabetic Foot Exam 08/12/2023 08/12/2022, 0 03/26/2021, 03/26/2021, Additional history exists HbA1c 09/19/2023 03/20/2023, 07/25, 10/16/2021, Additional history exists Cologuard 10/29/2025 10/29/2022, 09/26, 10/23/2022 Colorectal Cancer Screening 10/29/2025 Lipid Panel 08/05/2027 08/05/2022, 07/0 07/2021, 08/04/2020, Additional history exists DTaP,Tdap,and Td Vaccines (3 - Td or Tdap) 03/12/2032 03/12/2022, 07/06/2010 GARDASIL-HPV IMMUNIZATION SERIES Aged Out No longer eligible based on patient's age to complete this topic MENINGOCOCCAL (MENACTRA/MENVEO) Aged Out No longer eligible based on patient's age to complete this topic documented as of this encounter Medical Devices Not on filedocumented as of this encounter Procedures Procedure Name Priority Date/Time Associated Diagnosis Comments DIABETIC EYE EXAM Routine 10/10/2023 documented in this encounter Results * DIABETIC EYE EXAM (10/10/2023) 10/10/2023 History Per Patient OTHER OUTSIDE LAB (SEE SCANNED REPORT) documented in this encounter Care Teams Color Maker Relationship Specialty Start Date End Date Harley West DO [address] [place] [address] PCP - General Family Medicine 10/16/21 documented as of this encounter
--- OUTSIDE RECORDS SUMMARY | 2024-03-09 15:42 | External Medical Summary | Summary of Care ---
Author Name Unknown Organization [facility] Address [address] [place] [address] Phone [phone] Care Team Providers Care Disease Intervention Specialist Name Role Phone Brent Johnson DO Primary Care Provider [phone] Reason for Visit * Reason Comments eRx-Medication Refill Encounter Details Date Type Department Care Team (Late st Contact Info) Description 10/20/2023 Refill Family Practice [facility] [address] [facility] [place] [address] Brent Johnson DO [address] [facility] [place] [address] Encounter for long-term (current) use of medications*; HTN, goal below 140/90; Type 2 diabetes mellitus with hemoglobin A1c goal of less than 7.0% ([facility]) Allergies Active Allergy Reactions Criticality Noted Date Comments Atorvastatin Other (Please comment) 04/19/2016 Severe joint pain. documented as of this encounter (statuses as of 10/23/2023) Medications Medication Sig Dispensed Refills Start Date [...] less than 7.0% (HCC) INJECT 34 UNITS UNDER THE SKIN TWICE A DAY OR DIRECTED.. 60 mL 0 09/02/2023 Active Losartan Potassium 100 MG Oral Tablet [...] ONCE DAILY 30 Tablet 11 10/23/2023 Active glipiZIDE ER 10 MG Oral Tablet Extended Release 24 Hour (Glucotrol XL)Indications:Typ e 2 diabetes mellitus with hemoglobin A1c goal of less than 7.0% (HCC) TAKE 1 TABLET BY MOUTH TWICE DAILY 30 MINUTES BEFORE MORNING AND EVENING MEALS. 60 Tablet 11 10/23/2023 Active Colchicine 0.6 MG Oral Tablet TAKE 1 TABLET BY MOUTH 3 TIMES DAILY OR DIRECTED. 90 Tablet 11 10/23/2023 Active Semaglutide 3 MG Oral Tablet (Rybelsus)Indicati ons:Type 2 diabetes mellitus with hemoglobin A1c goal of less than 7.0% (HCC) Take 3 mg by mouth daily first thing in the morning. 30 Tablet 5 03/25/2023 3 Discontinued Losartan Potassium 100 MG Oral Tablet (Cozaar)Indication s:HTN, goal below 140/90 TAKE ONE TABLET BY MOUTH DAILY. 30 Tablet 2 07/23/2023 3 Discontinued Colchicine 0.6 MG Oral Tablet TAKE 1 TABLET BY MOUTH 3 TIMES DAILY OR DIRECTED. 90 Tablet 2 07/23/2023 3 Discontinued Jardiance 25 MG Oral Tablet (Empagliflozin)Ind ications:Type 2 diabetes mellitus with hemoglobin A1c goal of less than 7.0% (HCC) TAKE 1 TABLET BY MOUTH ONCE DAILY 30 Tablet 2 07/23/2023 3 Discontinued glipiZIDE ER 10 MG Oral Tablet Extended Release 24 Hour (Glucotrol XL)Indications:Typ e 2 diabetes mellitus with hemoglobin A1c goal of less than 7.0% (HCC) TAKE 1 TABLET BY MOUTH TWICE DAILY 30 MINUTES BEFORE MORNING AND EVENING MEALS. 60 Tablet 2 07/23/2023 3 Discontinued hydroCHLOROthiazid e 25 MG Oral Tablet (Hydrodiuril)Indic ations:HTN, goal below 140/90 TAKE 1 TABLET BY MOUTH ONCE DAILY 30 Tablet 2 07/23/2023 3 Discontinued documented as of this encounter (statuses as of 10/23/2023) Active Problems Problem Noted Date Diagnosed Date [...] as of this encounter (statuses as of 10/23/2023) Resolved Problems Problem Noted Date Diagnosed Date Resolved Date ADVANCE DIRECTIVE INFORMATION 07/05/2005 09/16/2016 Overview: No, Advance Directive brochure given to patient. Screening for prostate cancer 08/10/2004 02/01/2009 Overview: Resolved per Screening Diagnosis Protocol #6 documented as of this encounter (statuses as of 10/23/2023) Immunizations Name Administration Dates Next Due COVID-19 [...] encounter Miscellaneous Notes * Telephone Encounter - Brent Johnson DO - 10/23/2023 3:27 PM ESTSigned Prescriptions: Disp Refills Losartan Potassium 100 MG Oral Tablet (Coz*30 Tab*11 Sig: TAKE ONE TABLET BY MOUTH DAILY.Authorizing Provider: BRENT JOHNSON Jardiance 25 MG Oral Tablet (Empagliflozin)30 Tab*11 Sig: TAKE 1 TABLET BY MOUTH ONCE DAILYAuthorizing Provider: BRENT JOHNSON hyd roCHLOROthiazide 25 MG Oral Tablet (Hyd*30 Tab*11 Sig: TAKE 1 TABLET BY MOUTH ONCE DAILYAuthorizingProvider: BRENT JOHNSON glipiZIDE ER 10 MG Oral Tablet Extended Re*60 Tab*11 Sig: TAKE 1 TABLET BY MOUTH TWICE DAILY 30 MINUTES BEFORE MORNING AND EVENING MEALS.Authorizing Provider: Rosibel JOHNSON Colchicine 0.6 MG Oral Tablet 90 Tab*11 Sig: TAKE 1 TABLET BY MOUTH 3 TIMES DAILY OR DIRECTED.Authorizing Provider: BRENT JOHNSON * Telephone Encounter - Interface, E-Rx Ss Inbound - 10/23/2023 2:42 PM EST Pending Prescriptions: Disp Refills Losartan Potassium 100 MG Oral Tablet (Coz*30 Tab*0 Sig: TAKE ONE TABLET BY MOUTH DAILY. Jardiance 25 MG Oral Tablet (Empagliflozin)30 Tab*0 Sig: TAKE 1 TABLET BY MOUTH ONCE DAILY hydroCHLOROthiazide 25 MG Oral Tablet (Hyd*30 Tab*0 Sig: TAKE 1 TABLET BY MOUTH ONCE DAILY glipiZIDE ER 10 MG Oral Tablet Extended Re*60 Tab*0 S ig: TAKE 1 TABLET BY MOUTH TWICE DAILY 30 MINUTES BEFORE MORNING AND EVENING MEALS. Colchicine 0.6 MG Oral Tablet 90 Tab*0 Sig: TAKE 1 TABLET BY MOUTH 3 TIMES DAILY OR DIRECTED. * Telephone Encounter - Romina Lee CPhT - 10/23/2023 8:16 AM ESTPending Prescriptions: Disp Refills Losartan Potassium 100 MG Oral Tablet (Coz*30 Tab*0 Sig: TAKE ONE TABLET BY MOUTH DAILY. Jardiance 25 MG Oral Tablet (Empagliflozin)30 Tab*0 Sig: TAKE 1 TABLET BY MOUTH ONCE DAILY hydroCHLOROthiazide 25 MG Oral Tablet (Hyd*30 Tab*0 Sig: TAKE 1 TABLET BY MOUTH ONCE DAILY glipiZIDE ER 10 MG Oral Tablet Extended Re*60 Tab*0 S ig: TAKE 1 TABLET BY MOUTH TWICE DAILY 30 MINUTES BEFORE MORNING AND EVENING MEALS. Colchicine 0.6 MG Oral Tablet 90 Tab*0 Sig: TAKE 1 TABLET BY MOUTH 3 TIMES DAILY OR DIRECTED. * Telephone Encounter - Romina Lee CPhT - 10/23/2023 8:12 AM EST Received message from [facility] regarding patient needing labs. Placed call to patient to advise. Pt was agreeable to have labs drawn but would prefer to walk-in at their convenience. Thank you, Romina Lee CPhT Management Trainee [employer] [facility] ( Formerly Telepharmacy) 10/23/2023,8:12 AM * Telephone Encounter - Lianne Campbell [facility] - 10/23/2023 4:33 AM ESTPending Prescriptions: Disp Refills Losartan Potassium 100 MG Oral Tablet (Coz*30 Tab*0 Sig: TAKE ONE TABLET BY MOUTH DAILY. Jardiance 25 MG Oral Tablet (Empagliflozin)30 Tab*0 Sig: TAKE 1 TABLET BY MOUTH ONCE DAILY hydroCHLOROthiazide 25 MG Oral Tablet (Hyd*30 Tab*0 Sig: TAKE 1 TABLET BY MOUTH ONCE DAILY glipiZIDE ER 10 MG Oral Tablet Extended Re*60 Tab*0 S ig: TAKE 1 TABLET BY MOUTH TWICE DAILY 30 MINUTES BEFORE MORNING AND EVENING MEALS. Colchicine 0.6 MG Oral Tablet 90 Tab*0 Sig: TAKE 1 TABLET BY MOUTH 3 TIMES DAILY OR DIRECTED. * Telephone Encounter - Lianne Campbell [facility] - 10/23/2023 4:32 AM EST Unable to authorize medication refills for pended medication(s) at this time. Per refill protocol patient should have routine labs on file within past year. Reviewed AMP report, Care Gaps/Health Maintenance, medications list, and for any routine labs typically ordered for this patient. Lab orders placed. Please contact patient to advise of labs ordered for blood draw AND URINE specimen (patient will have to be able to void to provide sample). Recommend patient to fast if able for labs. Patient may still have water and regular medications. Advise to obtain labs before requesting the next refill. After contacting patient, please forward request to Brent Johnson DO. Thank You, Lianne Campbell [facility] Clinical Pharmacist [facility] ([facility]) (formerly Telepharmacy) [phone] 10/23/2023, 4:32 AM * Telephone Encounter - Kenya Keyes RP - 10/21/2023 11:07 AM EST Pt has OV on 10/22/23 and labs are due. Postponing until OV completed. Thank you, Kenya Keyes, PharmD Clinical Pharmacist [facility] ([facility]) (formerly [facility]) [phone] 10/21/2023, 11:08 AM documented in this encounter Plan of Treatment Upcoming Encounters Date Type Department Care Team (Late st Contact Info) Description 05/19/2024 10:20 AM EDT Office Visit Family Practice [facility] [place] [address] [facility] [place] [address] Brent Johnson DO [address] [facility] [place] [address] Scheduled Orders Name Type Priority Associated Diagnoses Orde r Schedule MAGNESIUM Lab Routine Encounter for long-term (current) use of medications Expected: 10/23/2023 (Approximate), Expires: 10/23/2024 VITAMIN B12 Lab Routine Encounter for long-term (current) use of medications Expected: 10/23/2023 (Approximate), Expires: 10/23/2024 Health Maintenance Due Date Last Done Comments [...] (3 - 2022- season) 2023 01/30/2021, 01/09/2021 GFR 08/05/2023 08/05/2022, 07/0 07/2021, 08/04/2020, Additional history exists HbA1c 09/19/2023 03/20/2023, 07/25, 10/16/2021, Additional history exists Diabetic Eye Exam 10/10/2024 10/10/2023, , 05/24/2021, Additional history exists Diabetic Foot Exam 10/22/2024 10/22/2023, 0 08/12/2022, 03/26/2021, Additional history exists Cologuard 10/29/2025 10/29/2022, 09/26, [...] as of this encounter Visit Diagnoses Diagnosis Encounter for long-term (current) use of medications- Primary Encounter for long-term (current) use of other medications HTN, goal below 140/90 Unspecified essential hypertension Type 2 diabetes mellitus with hemoglobin A1c goal of less than 7.0% (HCC) documented in this encounter Care Teams Disease Intervention Specialist Relationship Specialty Start Date End Date Brent Johnson DO [address] [place] [address] PCP - General Family Medicine 10/16/21 documented as of this encounter
--- OUTSIDE RECORDS SUMMARY | 2024-03-09 15:42 | External Medical Summary | Summary of Care ---
Author Name Unknown Organization [facility] Address [address] [place] [address] Phone [phone] Care Team Providers Care Director Call Name Role Phone Brent Johnson DO Primary Care Provider [phone] Reason for Visit * Reason Comments eRx-Medication Refill Encounter Details Date Type Department Care Team (Late st Contact Info) Description 12/10/2023 Telephone Family Practice [facility] [address] [facility] [place] [address] Kathryn Sierra PA-C [address] [place] [address] eRx-Medication Refill Allergies Active Allergy Reactions Criticality Noted Date Comments Atorvastatin Other (Please comment) 04/19/2016 Severe joint pain. documented as of this encounter (statuses as of 12/11/2023) Medications Medication Sig Dispensed Refills Start Date [...] ONCE DAILY 30 Tablet 5 11/19/2023 Active Levemir FlexPen 100 UNIT/ML Subcutaneous Solution Pen-injector (Insulin Detemir)Indication s:Type 2 diabetes mellitus with hemoglobin A1c goal of less than 7.0% (HCC) INJECT 34 UNITS 2 TIMES DAILY (MORNING & EVENING MEALS), OR DIRECTED. 15 mL 2 12/10/2023 Active Levemir FlexPen 100 UNIT/ML Subcutaneous Solution Pen-injector (Insulin Detemir)Indication s:Type 2 diabetes mellitus with hemoglobin A1c goal of less than 7.0% (HCC) Inject 34 Units under the skin 2 times a day with morning and evening meals. INJECT 34 UNITS UNDER THE SKIN TWICE A DAY OR DIRECTED.. Strength: 100 UNIT/ML 60 mL 5 11/20/2023 4 Discontinued documented as of this encounter (statuses as of 12/11/2023) Active Problems Problem Noted Date Diagnosed Date [...] as of this encounter (statuses as of 12/11/2023) Resolved Problems Problem Noted Date Diagnosed Date Resolved Date ADVANCE DIRECTIVE INFORMATION 07/05/2005 09/16/2016 Overview: No, Advance Directive brochure given to patient. Screening for prostate cancer 08/10/2004 02/01/2009 Overview: Resolved per Screening Diagnosis Protocol #6 documented as of this encounter (statuses as of 12/11/2023) Immunizations Name Administration Dates Next Due COVID-19 [...] encounter Miscellaneous Notes * Telephone Encounter - Kierra Dillon, turning sander tender - 12/11/2023 10:02 AM EST This is a new [place] request. Upon review of this prior authorization request, I verified this request is appropriate. This is prescribed by a department for which [facility] is authorized to review prior authorizations This [...] advise how to proceed. Thanks, Kierra Dillon Safety And Skill Based Pay Manager III [facility] ([facility]) 12/11/2023,10:02 AM * Telephone Encounter - Kierra Hernnadez PHARM Tech - 12/10/2023 2:58 PM EST Pharmacy calling to inform doctor that the patient's insurance will not pay for this medication. Did confirm this information with the pharmacy. Pt's current insurance information is as follows: Patient name: Meliton Hendricks ID number: [id number] BIN number: [id number] PCN number: Group number: [id number] Subscriber name: Meliton Hendricks Primary or Secondary Insurance:Primary Medication: Levemir FlexPen 100 UNIT/ML Reason for Request: not covered Pharmacy and phone number: [facility] [address] Rx plan and phone number: [employer] [phone] Is this a new medication for the patient? No. How did the patient obtain the medication on the lastfill? It was covered last time on this same insurance. What alternative medications does the pharmacy have in stock?: katharina Thank you, Kierra Hernandez CPhT Safety And Skill Based Pay Manager II [facility] ([facility]) (formerly Telepharmacy) 12/10/2023,2:58 PM * Telephone Encounter - Brent Johnson DO - 12/10/2023 2:47 PM ESTSigned Prescriptions: Disp Refills Levemir FlexPen 100 UNIT/ML Subcutaneous S*15 mL 2 Sig: INJECT 34 UNITS 2 TIMES DAILY (MORNING & EVENING MEALS), OR DIRECTED. Authorizing Provider: BRENT JOHNSON * Telephone Encounter - Holly Lucero [facility] - 12/10/2023 2:36 PM EST Pending Prescriptions: Disp Refills Levemir FlexPen 100 UNIT/ML Subcutaneous S*15 mL 2 Sig: INJECT 34 UNITS 2 TIMES DAILY (MORNING & EVENING MEALS), OR DIRECTED. * Telephone Encounter - Holly Lucero [facility] - 12/10/2023 2:35 PM EST Unable to authorize medication refills for pended medication(s) at this time. Part of the protocol criteria used for refill authorization was not satisfied. Patient needs A1C <7%. Please approve if appropriate. Thanks, Holly Lucero [facility] Clinical Pharmacist [facility] ([facility] [phone] HEMOGLOBIN A1C [facility] Date/Time Value Ref Range Status 10/30/2023 09:53 [...] Upcoming Encounters Date Type Department Care Team (Flash buck Contact Info) Description 05/19/2024 10:20 AM EDT Office Visit [facility] [address] [address] Brent Johnson DO [address] [facility] [place] [address] Health Maintenance Due Date Last Done Comments [...] (HCC) documented in this encounter Care Teams Director Call Relationship Specialty Start Date End Date Brent Johnson DO [address] [place] [address] PCP - General Family Medicine 10/16/21 documented as of this encounter
--- OUTSIDE RECORDS SUMMARY | 2024-03-09 15:42 | External Medical Summary | Summary of Care ---
Author Name Unknown Organization [facility] Address [address] [place] [address] Phone [phone] Care Team Providers Care Special Technical Operations Officer Name Role Phone Brent Johnson DO Primary Care Provider [phone] Reason for Visit * Reason Comments eRx-Medication Refill Encounter Details Date Type Department Care Team (Late st Contact Info) Description 12/10/2023 Refill Family Practice [facility] [address] [facility] [place] [address] Kathryn Sierra PA-C [address] [facility] [place] [address] Type 2 diabetes mellitus with hemoglobin A1c goal of less than 7.0% ([facility]) Allergies Active Allergy Reactions Criticality Noted Date Comments Atorvastatin Other (Please comment) 04/19/2016 Severe joint pain. documented as of this encounter (statuses as of 12/10/2023) Medications Medication Sig Dispensed Refills Start Date [...] TABLET BY MOUTH ONCE DAILY 30 Tablet 05/21/2023 Active OneTouch Ultra In Vitro Strip [...] Strength: 100 UNIT/ML 60 mL 5 11/20/2023 Discontinued documented as of this encounter (statuses as of 12/10/2023) Active Problems Problem Noted Date Diagnosed Date [...] as of this encounter (statuses as of 12/10/2023) Resolved Problems Problem Noted Date Diagnosed Date Resolved Date ADVANCE DIRECTIVE INFORMATION 07/05/2005 09/16/2016 Overview: No, Advance Directive brochure given to patient. Screening for prostate cancer 08/10/2004 02/01/2009 Overview: Resolved per Screening Diagnosis Protocol #6 documented as of this encounter (statuses as of 12/10/2023) Immunizations Name Administration Dates Next Due COVID-19 [...] Miscellaneous Notes * Telephone Encounter - Kierra Hernandez, service planner - 12/10/2023 2:58 PM EST Pharmacy calling to inform doctor that the patient's insurance will not pay for this medication. Did confirm this information with the pharmacy. Pt's current insurance information is as follows: Patient name: Meliton Hendricks ID number: [id number] BIN number: [id number] PCN number: Group number: [id number] Subscriber name: Meliton Hendricks Primary or Secondary Insurance:Primary Medication: Levemir FlexPen 100 UNIT/ML Reason for Request: not covered Pharmacy and phone number: [facility] [address] [place] Rx plan and phone number: chris [phone] Is this a new medication for the patient? No. How did the patient obtain the medication on the lastfill? It was covered last time on this same insurance. What alternative medications does the pharmacy have in stock?: katharina Thank you, [facility] Supervisor II [facility] ([facility]) (formerly Telepharmacy) 12/10/2023,2:58 PM * Telephone Encounter - Brent Johnson DO - 12/10/2023 2:47 PM ESTSigned Prescriptions: Disp Refills Levemir FlexPen 100 UNIT/ML Subcutaneous S*15 mL 2 Sig: INJECT 34 UNITS 2 TIMES DAILY (MORNING & EVENING MEALS), OR DIRECTED. Authorizing Provider: BRENT JOHNSON * Telephone Encounter - Holly Lucero RPh - 12/10/2023 2:36 PM EST Pending Prescriptions: Disp Refills Levemir FlexPen 100 UNIT/ML Subcutaneous S*15 mL 2 Sig: INJECT 34 UNITS 2 TIMES DAILY (MORNING & EVENING MEALS), OR DIRECTED. * Telephone Encounter - Holly Lucero RP - 12/10/2023 2:35 PM EST Unable to authorize medication refills for pended medication(s) at this time. Part of the protocol criteria used for refill authorization was not satisfied. Patient needs A1C <7%. Please approve if appropriate. Thanks, Holly Lucero [facility] Clinical Pharmacist [facility] ([facility]) [facility] [phone] HEMOGLOBIN A1C - [facility] Date/Time Value Ref Range Status 10/30/2023 09:53 [...] 10:20 AM EDT Office Visit Family Practice [facility] [place] [address] [facility] [place], [place] [address] Brent Johnson DO [address] [facility] [place], [place] [address] Health Maintenance Due Date Last Done Comments Hepatitis C Screening 1971 Fecal Occult Blood Test 1998 Sigmoidoscopy 1998 Zoster Vaccines (1 of 2) 2003 Hepatitis B (1 of 3 - Risk 3-dose series) 2013 Colonoscopy 11/14/2015 11/14/2005 Pneumococcal Vaccine: 65+ Years (3 - PPSV23 or PCV20) 10/29/2019 10/29/2018, 09/12/2011 Depression Screening 03/26/2022 03/26/2021 COVID-19 Vaccine ( season) 2023 01/30/2021, 01/09/2021 HbA1c 04/30/2024 10/30/2023, [...] (HCC) documented in this encounter Care Teams Special Technical Operations Officer Relationship Specialty Start Date End Date Brent Johnson DO [address] [place] [address] PCP - General Family Medicine 10/16/21 documented as of this encounter
--- OUTSIDE RECORDS SUMMARY | 2024-03-09 15:42 | External Medical Summary | Summary of Care ---
Author Name Unknown Organization [facility] Address [address] [place] [address] Phone [phone] Care Team Providers Care Mail Examiner Name Role Phone Brent Johnson DO Primary Care Provider [phone] Reason for Visit * Reason Comments eRx-Medication Refill Encounter Details Date Type Department Care Team (Late st Contact Info) Description 12/10/2023 Refill Family Practice [facility] [address] [place] [address] Kathryn Sierra PA-C [address] [place] [address] Type 2 diabetes mellitus with hemoglobin A1c goal of less than 7.0% ([facility]) Allergies Active Allergy Reactions Criticality Noted Date [...] Notes * Telephone Encounter - Kierra Hernandez, technical support associate - 12/10/2023 2:58 PM EST Pharmacy calling to inform doctor that the patient's insurance will not pay for this medication. Did confirm this information with the pharmacy. Pt's current insurance information is as follows: Patient name: Meliton Hendricks ID number: [id number] BIN number: [id number] PCN number: Group number: [id number] Subscriber name: Meliton Hendricks Primary or Secondary Insurance:Primary Medication: Levemir FlexPen 100 UNIT/ML Reason for Request: not covered Pharmacy and phone number: [facility] [address] [place] Rx plan and phone number: chris [phone] Is this a new medication for the patient? No. How did the patient obtain the medication on the lastfill? It was covered last time on this same insurance. What alternative medications does the pharmacy have in stock?: katharina Thank you, [facility] [employer] Worker II [facility] ([facility]) (formerly [...] Please approve if appropriate. Thanks, Holly Lucero [facility] Clinical Pharmacist [facility] ([facility]) [facility] [phone] HEMOGLOBIN A1C - [facility] Date/Time Value Ref Range Status 10/30/2023 09:53 [...] 10:20 AM EDT Office Visit Family Practice [facility] [place] [address] [facility] [place], [place] [address] Brent Johnson DO [address] [facility] [place], [place] [address] Health Maintenance Due Date Last Done Comments [...] (HCC) documented in this encounter Care Teams Mail Examiner Relationship Specialty Start Date End Date Brent Johnson DO [address] [place] [address] PCP - General Family Medicine 10/16/21 documented as of this encounter
--- OUTSIDE RECORDS SUMMARY | 2024-03-09 15:42 | External Medical Summary | Summary of Care ---
Author Name Unknown Organization [facility] Address [address] [place] [address] Phone [phone] Care Team Providers Care Title Camera Operator Name Role Phone Harley West DO Primary Care Provider [phone] Reason for Visit * Reason Comments Outpatient Testing Encounter Details Date Type Department Care Team (Late st Contact Info) Description 10/30/2023 9:50 AM EST Laboratory Laboratory [facility] [address] [place] [address] [place], [facility] [address] [place] [address] Dyslipidemia, goal to be determined; Type 2 diabetes mellitus with hemoglobin A1c goal of less than 7.0% ([facility]); BPH with obstruction/lower urinary tract symptoms; Encounter for long-term (current) use of medications Allergies Active Allergy Reactions Criticality Noted Date Comments Atorvastatin Other (Please comment) 04/19/2016 Severe joint pain. documented as of this encounter (statuses as of 10/30/2023) Medications Medication Sig Dispensed Refills Start Date [...] 10/23/2023 Active Jardiance 25 MG Oral Tablet (Empagliflozin)Indica tions:Type 2 diabetes mellitus with hemoglobin A1c goal of less than 7.0% (HCC) TAKE 1 TABLET BY MOUTH ONCE DAILY 30 Tablet 10/23/2023 Active hydroCHLOROthiazide 25 MG Oral Tablet (Hydrodiuril)Indicati [...] OR DIRECTED. 90 Tablet 11 10/23/2023 Active Ozempic (0.25 or 0.5 MG/DOSE) 2 MG/1.5ML Solution Pen-injector (Semaglutide(0.25 or 0.5MG/DOS)) Inject .25 mg weekly for 4 weeks and then increase to .5 mg weekly after that 1.5 mL 5 10/22/2023 Active documented as of this encounter (statuses as of 10/30/2023) Active Problems Problem Noted Date Diagnosed Date [...] as of this encounter (statuses as of 10/30/2023) Resolved Problems Problem Noted Date Diagnosed Date Resolved Date ADVANCE DIRECTIVE INFORMATION 07/05/2005 09/16/2016 Overview: No, Advance Directive brochure given to patient. Screening for prostate cancer 08/10/2004 02/01/2009 Overview: Resolved per Screening Diagnosis Protocol #6 documented as of this encounter (statuses as of 10/30/2023) Immunizations Name Administration Dates Next Due COVID-19 mRNA, LNP-s, No Pre serve, 2-Dose Series (Pfizer) 01/30/2021,01/09/2021 Pneumococcal Conjugate Vacc, 13 Valent (Prevnar) 10/29/2018 Pneumococcal Polysaccharide PPV23 (Pneumovax) SEASONAL INFLUENZA, PF, 6 M & Above, IM , (FLULAVAL or FLUZONE) 10/29/2018,11/06/2017 Season Influenza, Quad, PF, Adjuvanted, 65+ Yrs, IM (FLUAD) 09/11/2020 Seasonal Influenza, Quadrivalent Hd (Fluzone Hd) 10/22/2023 [...] 10:20 AM EDT Office Visit Family Practice [facility] [address] [facility] [place] [address] Harley West, DO [address] [facility] [place] [address] Pending Results Name Type Priority Associated Diagnoses Date /Time COMPREHENSIVE METABOLIC PANEL Lab Routine Dyslipidemia, goal to be determined 10/30/2023 9:53 AM EST LIPID PANEL WITH DIRECT LDL IF TG IS HIGH Lab Routine Dyslipidemia, goal to be determined 10/30/2023 9:53 AM EST HEMOGLOBIN A1C Lab Routine Type 2 diabetes mellitus with hemoglobin A1c goal of less than 7.0% ([facility]) 10/30/2023 9:53 AM EST PSA Lab Routine BPH with obstruction/lower urinary tract symptoms 10/30/2023 9:53 AM EST MAGNESIUM Lab Routine Encounter for long-term (current) use of medications 10/30/2023 9:53 AM EST VITAMIN B12 Lab Routine Encounter for long-term (current) use of medications 10/30/2023 9:53 AM EST Health Maintenance Due Date Last Done Comments [...] Vaccine ( - season) 2023 01/30/2021, 01/09/2021 GFR 08/05/2023 08/05/2022, [...] as of this encounter Visit Diagnoses Diagnosis Dyslipidemia, goal to be determined Other and unspecified hyperlipidemia Type 2 diabetes mellitus with hemoglobin A1c goal of less than 7.0% (HCC) BPH with obstruction/lower urinary tract symptoms Hypertrophy of prostate with urinary obstruction and other lower urinary tract symptoms (LUTS) Encounter for long-term (current) use of medications Encounter for long-term (current) use of other medications documented in this encounter Care Teams Title Camera Operator Relationship Specialty Start Date End Date Harley West DO [address] [place] [address] PCP - General Family Medicine 10/16/21 documented as of this encounter
--- OUTSIDE RECORDS SUMMARY | 2024-03-09 15:42 | External Medical Summary | Summary of Care ---
Author Name Unknown Organization [facility] Address [address] [place] [address] Phone [phone] Care Team Providers Care Barrel Charrer Name Role Phone Harley West DO Primary Care Provider [phone] Reason for Visit * Reason Onset Date Comments Re-Check Medication Administration 10/22/2023 Flu an d/or Pneumo Inj Encounter Details Date Type Department Care Team (Late st Contact Info) Description 10/22/2023 9:20 AM EST Office Visit [facility] [address] [facility] [place] [address] Harley West DO [address] [place] [address] Type 2 diabetes mellitus with hemoglobin A1c goal of less than 7.0% ([facility]; DM type 2 nursing care encounter ([facility]); Need for prophylactic vaccination and inoculation against influenza; Dyslipidemia, goal to be determined; HTN, goal below 140/90 Allergies Active Allergy Reactions Criticality Noted Date Comments Atorvastatin Other (Please comment) 04/19/2016 Severe joint pain. documented as of this encounter (statuses as of 10/22/2023) Medications Medication Sig Dispensed Refills Start Date [...] 07/23/2023 Active Jardiance 25 MG Oral Tablet (Empagliflozin)Ind [...] EVENING MEALS. 60 Tablet 2 07/23/2023 Active hydroCHLOROthiazid e 25 MG Oral Tablet [...] OR DIRECTED.. 60 mL 0 09/02/2023 Active Ozempic (0.25 or 0.5 MG/DOSE) 2 MG/1.5ML Solution Pen-injector (Semaglutide(0.25 or 0.5MG/DOS)) Inject .25 mg weekly for 4 weeks and then increase to .5 mg weekly after that 1.5 mL 5 10/22/2023 Active Semaglutide 3 MG Oral Tablet (Rybelsus)Indicati ons:Type 2 diabetes mellitus with hemoglobin A1c goal of less than 7.0% (HCC) Take 3 mg by mouth daily first thing in the morning. 30 Tablet 5 03/25/2023 3 Discontinued documented as of this encounter (statuses as of 10/22/2023) Active Problems Problem Noted Date Diagnosed Date [...] as of this encounter (statuses as of 10/22/2023) Resolved Problems Problem Noted Date Diagnosed Date Resolved Date ADVANCE DIRECTIVE INFORMATION 07/05/2005 09/16/2016 Overview: No, Advance Directive brochure given to patient. Screening for prostate cancer 08/10/2004 02/01/2009 Overview: Resolved per Screening Diagnosis Protocol #6 documented as of this encounter (statuses as of 10/22/2023) Immunizations Name Administration Dates Next Due COVID-19 [...] on file documented as of this encounter Last Filed Vital Signs Vital Sign Reading Time Taken Comments Blood Pressure 134/80 10/22/2023 9:18 AM EST Pulse 92 10/22/2023 9:18 AM EST Temperature 35.7 C (96.3 F) 10/22/2023 9:18 AM ES T Respiratory Rate 16 10/22/2023 9:18 AM EST Oxygen Saturation 95% 10/22/2023 9:18 AM EST Inhaled Oxygen Concentration - - Weight 110.4 kg (243 lb 6.4 oz) 10/22/2023 9:18 AM EST Height 177 cm (5' 9.69") 10/22/2023 9:18 AM EST Body Mass Index 35.24 10/22/2023 9:18 AM EST documented in this encounter Patient Instructions * Patient Instructions* Lis Coleman LPN - 10/22/2023 9:24 AM EST Diabetes: Keeping Feet Healthy Inspect your feet every day for signs of a problem. Diabetes can damage nerves in your feet and cause neuropathy. This condition makes it hard for you to feel injuries or sore spots. Diabetes can also change blood flow, making it harder for small problems, like a blister, to heal properly. In fact, minor injuries can quickly become serious infections that send you to the hospital. Practice self-care to protect your feet and keep them healthy. Take Special Care Inspect your feet daily for problems such as redness, blisters, cracks, dry skin, or numbness. Use a mirror to see the bottoms of your feet. Or, ask for help. Manage your diabetes. Monitor and control your blood sugar. Take all your medications as prescribed. Avoid walking barefoot, even indoors. Wash your feet with warm water and mild soap. Dry well, especially between toes. Dont treat corns or calluses yourself. Talk to your doctor or administrative resident (a doctor who specializes in foot care) if you need assistance trimming your toenails. Use moisturizing cream or lotion if you have dry skin, but dont use it between toes. Dont use heating pads on your feet. If you have neuropathy, you could get a burn and not feel it. Stop smoking. Smoking restricts blood flow and can make it harder for wounds to heal. Have Regular Checkups Foot problems can develop quickly. So be sure to follow your healthcare teams schedule for regular checkups. During office visits, take off your shoes and socks as soon as you get in the exam room. Ask your healthcare provider to examine your feet for problems. This will make it easier to find and treat small skin irritations before they get worse. Regular checkups can also help keep track of the blood flow and feeling in your feet. If you have neuropathy, you may need to have checkups more often. Wear Proper Footwear Wearing proper footwear is very important. If areas of your feet have been damaged by too much pressure, your healthcare provider may recommend changing your footwear. In some cases, avoiding high heels or tight work boots may be all thats needed. Or, your healthcare provider may recommend special shoes or custom inserts. These help protect your feet and keep existing irritations from getting worse. If you need special footwear, ask your healthcare provider if you qualify for [employer] diabetic shoe program. Make Sure Shoes and Socks Fit Any pair of shoes--new or old--should feel comfortable as soon as you put them on. There shouldnt be any rubbing when you walk. Wear the right shoe for any activity. For instance, a running shoe is designed to keep your feet injury-free while jogging. Buy shoes at the end of the day, when your feet are larger. Make sure they provide support without feeling too loose. Make sure your socks fit, t oo. Wear soft, seamless, well-padded socks for activity. Cotton or microfiber socks are best to help to absorb sweat. To protect your feet, avoid shoes that are open-toed or open-heeled. If you have questions about what kinds of shoes and socks are best, talk to your healthcare team. Get Regular Exercise Regular exercise improves blood flow in your feet. It also increases foot strength and flexibility.Gentle exercises, like walking or riding a stationary bicycle, are best. You can also do special foot exercises. Just be sure to talk with your healthcare provider before starting any exercise program. Also mention if any exercise causes pain, redness, or other signs of foot problems. Note: If you have any kind of break in the skin of your foot or ankle, keep the area clean. Then call your doctor--especially if the area doesnt appear to be healing. [id number] [employer], [address] [place] [address], [place] [address]. All rights reserved. This information is not intended as a substitute for professional medical care. Always follow your healthcare professional's instructions. documented in this encounter Progress Notes * Harley West, - 10/22/2023 9:33 AM EST Subjective: Meliton Hendricks is a 68 year old male. Chief Complaint Patient presents with Re-Check Medication Administration Flu and/or Pneumo Inj HPI: Pt here in follow-up. We went to Rybels from Ozempic because of nausea but Rybelsus is causing even more nausea.Will try to return to Ozempic. Thinking of titrating up insulin. BG have been up. Still not bad. Will push insulin if Ozempic doesn't help. His feet bother him. He has some PF with it. Got new shoes and arch support. He added some stretches. Crocs don't do well. Wonders about some fluid. Will get Flu shot today. Will consider pneumonia for the future. PMHx, meds, and allergies reviewed Patient Active Problem List Diagnosis Code Dyslipidemia, goal to be determined E78.5 HTN, goal below 140/90 I10 Gout M10.9 BMI 35-39 ISOLATED (SEE ACTUAL BMI) E66.9 Type 2 diabetes mellitus with hemoglobin A1c goal of less than 7.0% ([facility]) E11.9 Statin intolerance Z78.9 Gastroesophageal reflux disease without esophagitis K21.9 Current Outpatient Medications Medication Sig Dispense Refill Blood Glucose Monitoring Suppl (ACCU-CHEK GUIDE) w/Device KIT Use as directed. Use as directed 3 times a day. Diagnosis: E11.9 1 Kit 0 ACCU-CHEK FASTCLIX LANCETS MISC Use as directed 3 times a day. Diagnosis: E11.9 306 Each 3 Ibuprofen 800 MG Oral Tablet (MOTRIN) TAKE 1 TABLET BY MOUTH THREE TIMES DAILY WITH MEALS [id number] Tab 3 Aspirin 325 MG Oral Tablet Take 1 Tablet by mouth in the morning. B Complex 100 TR Oral Tablet Extended Release Take by mouth . Multi-Vitamin Daily Oral Tablet Take 1 Tablet by mouth in the morning. Potassium 75 MG Oral Tablet Take 1 Tablet by mouth in the morning. Vitamin E 400 UNIT Oral Tablet Take 1 Tablet by mouth in the morning. EQL Fiber Laxative 625 MG Oral Tablet (Calcium Polycarbophil) Take 1 Tablet by mouth in the morning. Semaglutide 3 MG Oral Tablet (Rybelsus) Take 3 mg by mouth daily first thing in the morning. 30 Tablet 5 Omeprazole 20 MG Oral Capsule Delayed Release (PriLOSEC) TAKE 1 CAPSULE BY MOUTH DAILY 30 Capsule 5 Allopurinol 300 MG Oral Tablet (Zyloprim) TAKE 1 TABLET BY MOUTH ONCE DAILY 30 Tablet 5 amLODIPine Besylate 10 MG Oral Tablet (Norvasc) TAKE 1 TABLET BY MOUTH ONCE DAILY 30 Tablet 5 OneTouch Ultra In Vitro Strip (Glucose Blood) USE DIRECTED 3 TIMES A DAY. 300 Strip 1 Losartan Potassium 100 MG Oral Tablet (Cozaar) TAKE ONE TABLET BY MOUTH DAILY. 30 Tablet 2 Colchicine 0.6 MG Oral Tablet TAKE 1 TABLET BY MOUTH 3 TIMES DAILY OR DIRECTED. 90 Tablet 2 Jardiance 25 MG Oral Tablet (Empagliflozin) TAKE 1 TABLET BY MOUTH ONCE DAILY 30 Tablet 2 glipiZIDE ER 10 MG Oral Tablet Extended Release 24 Hour (Glucotrol XL) TAKE 1 TABLET BY MOUTH TWICEDAILY 30 MINUTES BEFORE MORNING AND EVENING MEALS. 60 Tablet 2 hydroCHLOROthiazide 25 MG Oral Tablet (Hydrodiuril) TAKE 1 TABLET BY MOUTH ONCE DAILY 30 Tablet 2 BD Pen Needle Mini U/F 31G X 5 MM (Insulin Pen Needle) USE TWICE A DAY. 200 Each 1 Tamsulosin HCl 0.4 MG Oral Capsule (Flomax) TAKE 1 CAPSULE BY MOUTH DAILY 90 Capsule 2 Levemir FlexPen 100 UNIT/ML Subcutaneous Solution Pen-injector (Insulin Detemir) INJECT 34 UNITS UNDER THE SKIN TWICE A DAY OR DIRECTED.. 60 mL 0 No current facility-administered medications for this visit. Review of patient's allergies indicates: Allergen Reactions Lipitor [Atorvastatin] Other (Please comment) Severe joint pain. OBJECTIVE: BP 134/80 | Pulse 92 | Temp 35.7 C (96.3 F) (Tympanic) | Resp 16 | Ht 1.77 m (5' 9.69") | Wt 110.4 kg (243 lb 6.4 oz) | SpO2 95% | BMI 35.24 kg/m | BSA 2.33 m Estimated body mass index is 35.24 kg/m as calculated from the following: Height as of this encounter: 1.77 m (5' 9.69"). Weight as of this encounter: 110.4 kg (243 lb 6.4 oz). BP Readings from Last 3 Encounters: 10/22/23 134/80 03/25/23 136/78 08/12/22 130/88 Wt Readings from Last 3 Encounters: 10/22/23 110.4 kg (243 lb 6.4 oz) 03/25/23 109.1 kg (240 lb 9.6 oz) 08/12/22 110.8 kg (244 lb 3.2 oz) ROS: Negative except for above PHYSICAL EXAM: General: alert, healthy, and no distress Head: Normocephalic, No masses, lesions, tenderness or abnormalities Heart: regular rate & rhythm, no murmur, and no gallops Lungs: chest symmetric with normal AP diameter, no chest deformities noted, no chest wall tenderness, lungs clear to auscultation Extremities: less than 2 second capillary refill, no joint deformities, effusion, or inflammation, no current edema ASSESSMENT/Plan Type 2 diabetes mellitus with hemoglobin A1c goal of less than 7.0% ([facility]) (Primary) - HEMOGLOBIN A1C; Future; Expected date: 04/21/2024 DM type 2 nursing care encounter ([facility]) - DIABETES FOOT EXAM Need for prophylactic vaccination and inoculation against influenza - INFLUENZA VACC, QUAD, HIGH DOSE (FLUZONE HD) Dyslipidemia, goal to be determined HTN, goal below 140/90 Other orders - Ozempic (0.25 or 0.5 MG/DOSE) 2 MG/1.5ML Solution Pen-injector (Semaglutide(0.25 or 0.5MG/DOS)); Inject .25 mg weekly for 4 weeks and then increase to .5 mg weekly after that I spent a total of 30 minutes on the date of service in preparation, delivery, and documentation ofthe care provided to this patient, excluding any time spent on the performance of any procedure or separately billable services. Will go back to Ozempic. If this doesn't make an impact on his sugars he has permission to increasehis long acting insulin as needed by 2 units at a time. The above was discussed and understanding was expressed. Harley West DO * Lis Coleman LPN - 10/22/2023 9:23 AM EST DM Foot Exam completed today. Provider aware. Lis Coleman LPN Socks and Shoes Removed for Annual Diabetic Foot Screening RIGHT FOOT: No Reddened, Cracking, Or Open Areas Noted. RIGHT Dorsalis Pedis Pulse: Palpable RIGHT Posterior Tibial Pulse: Palpable RIGHT Patient reports difficulty feeling monofilament at all areas LEFT FOOT: No Reddened, Cracking or Open Areas Noted. LEFT Dorsalis Pedis Pulse: Palpable LEFT Posterior Tibial Pulse: Palpable LEFT Monofilament:Patient reports difficulty feeling monofilament at all areas Do you need diabetic shoes: N/A PRE - ADMINISTRATION DOCUMENTATION Are you experiencing any cold symptoms or fever? No Have you had Guillain-Hanna Syndrome (an illness that causes paralysis) within the last 6 weeks? No Have you had the flu shot in the past? YES Have you ever had a reaction to the flu shot? No Lis Coleman LPN, 10/22/2023 9:24 AM Immunization Administration Documentation Time Out Procedure Performed: Yes Patient Identified (Ask Name/Date of ): Yes Does the patient have a fever greater than 101 degrees today? No Patient allergic to latex? No VFC Stock: No Immunization(s) verified: Yes, Immunization Name: Flu, VIS Sheet(s) given: Yes Verified Side and Site: Yes Verified Shot(s) with Parent(s)/Patient: Yes documented in this encounter Nursing Notes * Lis Coleman LPN - 10/22/2023 9:16 AM EST Meliton Hendricks presents for 6 month recheck. Medications & HM reviewed. States feet have paris bothering him some. Wondering if he can switch from rybelsus back to ozempic. documented in this encounter Plan of Treatment Upcoming Encounters Date Type Department Care Team (Late st Contact Info) Description 05/19/2024 10:20 AM EDT Office Visit [facility] [place] [address] [facility] [place] [address] Harley West DO [address] [facility] [place] [address] Scheduled Orders Name Type Priority Associated Diagnoses Orde r Schedule HEMOGLOBIN A1C Lab Routine Type 2 diabetes mellitus with hemoglobin A1c goal of less than 7.0% (HCC) Expected: 04/21/2024 (Approximate), Expires: 10/22/2024 Health Maintenance Due Date Last Done Comments [...] COVID-19 Vaccine ( season) 2023 01/30/2021, 01/09/2021 GFR 08/05/2023 08/05/2022, [...] hemoglobin A1c goal of less than 7.0% (HCC)- Primary DM type 2 nursing care encounter (HCC) Type II or unspecified type diabetes mellitus without mention of complication, not stated as uncontrolled Need for prophylactic vaccination and inoculation against influenza Dyslipidemia, goal to be determined Other and unspecified hyperlipidemia HTN, goal below 140/90 Unspecified essential hypertension documented in this encounter Care Teams Barrel Charrer Relationship Specialty Start Date End Date Harley West DO [address] [place] [address] PCP - General Family Medicine 10/16/21 documented as of this encounter
--- OUTSIDE RECORDS SUMMARY | 2024-03-09 15:42 | External Medical Summary ---
Author Name Unknown Address Unknown Organization [id number]:[facility] - [address] [facility] [address] Laboratory Report Ordering Provider Test Date Status ELIZABETH KENNEDY 10/30/2023 09:53:16 Final Observation Date Value Abnormality Reference (Units ) Status HbA1C 10/30/2023 09:53:16 9.2 Above high normal 4. 0-5.6 (%) Final The use of HbA1c to monitor glycemic status is based on normal hemoglobin and HbA composition. This test should not be used in patients with abnormal hemoglobin that affects the half life of the red blood cell or the in vivo glycation rates. Glucose, estimated average 10/30/2023 09:53:16 217 Above high normal <126 (mg/dL) Malcolm murillo Performing Location [facility] - [address] [facility] [address]
--- OUTSIDE RECORDS SUMMARY | 2024-03-09 15:42 | External Medical Summary | Summary of Care ---
Author Name Unknown Organization [facility] Address [address] [place] [address] Phone [phone] Care Team Providers Care Lumber Grader Name Role Phone Brent Johnson DO Primary Care Provider [phone] Reason for Visit * Reason Comments eRx-Medication Refill Encounter Details Date Type Department Care Team (Late st Contact Info) Description 12/10/[address] [facility] [address] [facility] [place] [address] Kathyrn Sierra PA-C [address] [facility] [place] [address] eRx-Medication Refill Allergies Active Allergy Reactions Criticality [...] as of this encounter Miscellaneous Notes * Addendum Note - Brent Johnson DO - 12/16/2023 1:02 PM ESTAddended by: BRENT JOHNSON on: 12/16/2023 01:02 PM Modules accepted: Orders * Telephone Encounter - Brent Johnson DO - 12/16/2023 1:02 PM EST I sent for Tresiba to the pharmacy for him with an adjustment to his dosing. * Telephone Encounter - Holly Lucero RP - 12/16/2023 9:30 AM EST Submitted prior authorization for Levemir via [facility] (Vazquez: [id number]). Instructed by [facility] to call patients insurance at [employer], Insulin Glargine Solostar, Semglee, Toujeo and Tresiba do not require prior auth and we could consider subsituting if agreeable. Tresiba is in stock at patients pharmacy. Please advise. Holly Garcia [facility] Clinical Pharmacist Centralized Clinical Pharmacy Services (CCPS) (Formerly Telepharmacy) [phone] * Telephone Encounter - Kierra Dillon supervisor sawmill - 12/11/2023 10:02 AM EST This is a new [place] request. Upon review of this prior authorization request, I verified this request is appropriate. This is prescribed by a department for which [facility] is authorized to review prior [...] note, there is nothing currently pending in [facility] for this request. Please advise how to proceed. Kierra Garcia Advanced Manufacturing Engineer III Centralized Clinical Pharmacy Services ([facility]PS) 12/11/2023,10:02 AM * Telephone Encounter - Kierra Hernandez PHARM Tech - 12/10/2023 2:58 PM EST Pharmacy calling to inform doctor that the patient's insurance will not pay for this medication. Did confirm this information with the pharmacy. Pt's current insurance information is as follows: Patient name: Meliton Hendricks ID number: [id number] BIN number: [id number] PCN number: Group number: [id number] Subscriber name: Meliton Hendricks Primary or Secondary Insurance:Primary Medication: Levemir FlexPen 100 UNIT/ML Reason for Request: not covered Pharmacy and phone number: [facility] [address] Rx plan and phone number: [employer] [phone] Is this a new medication for the patient? No. How did the patient obtain the medication on the lastfill? It was covered last time on this same insurance. What alternative medications does the pharmacy have in stock?: katharina Thank you, [facility] Advanced Manufacturing Engineer II Centralized Clin[facility] Pharmacy Services (CCPS) (formerly Telepharmacy) 12/10/2023,2:58 PM * Telephone Encounter - Brent Johnson DO - 12/10/2023 2:47 PM ESTSigned Prescriptions: Disp Refills Levemir FlexPen 100 UNIT/ML Subcutaneous S*15 mL 2 Sig: INJECT 34 UNITS 2 TIMES DAILY (MORNING & EVENING MEALS), OR DIRECTED. Authorizing Provider: BRENT JOHNSON * Telephone Encounter - Holly Lucero RP - 12/10/2023 2:36 PM EST Pending Prescriptions: Disp Refills Levemir FlexPen 100 UNIT/ML Subcutaneous S*15 mL 2 Sig: INJECT 34 UNITS 2 TIMES DAILY (MORNING & EVENING MEALS), OR DIRECTED. * Telephone Encounter - Holly Lucero RPh - 12/10/2023 2:35 PM EST Unable to authorize medication refills for pended medication(s) at this time. Part of the protocol criteria used for refill authorization was not satisfied. Patient needs A1C <7%. Please approve if appropriate. Thanks, Holly Lucero [facility] Clinical Pharmacist Centralized Clinical Pharmacy Services ([facility]PS) (Formerly [facility] Reminder) [phone] HEMOGLOBIN A1C [facility] Date/Time Value Ref Range Status 10/30/2023 [...] Visit Family Practice [place] [address] [facility] [place] [address] Brent Johnson DO [address] [place] [address] Health Maintenance Due Date Last Done Comments [...] A1c goal of less than 7.0% ([facility]) documented in this encounter Care Teams Lumber Grader Relationship Specialty Start Date End Date Brent Johnson DO [address] [place] [address] PCP - General Family Medicine 10/16/21 documented as of this encounter
--- OUTSIDE RECORDS SUMMARY | 2024-03-09 15:42 | External Medical Summary ---
Author Name Unknown Address Unknown Organization K01:[facility] [address] [place] [address] Laboratory Report Ordering Provider Test Date Status ELIZABETH KENNEDY 10/30/2023 09:53:16 Final Observation Date Value Abnormality Reference (Units ) Status Triglyceride 10/30/2023 09:53:16 229 Above high normal <=174 (mg/dL) Final Triglyceride Reference Range s (mg/dL):
<150 Acceptable
150-174 Borderline high
175-499 High
>=500 Very high Cholesterol 10/30/2023 09:53:16 181 <200 (mg /dL) Final Total Cholesterol Reference Ranges (mg/dL):
<200 Desirable
200-239 Borderline high
>=240 High HDL 10/30/2023 09:53:16 40 >39 (mg/dL ) Final HDL Cholesterol Reference Ra nges (mg/dL):
>=60 High (Desirable)
<50 Low (Undesirable) For Females
<40 Low (Undesirable) For Males NON-HDL CHOLESTEROL 10/30/2023 09:53:16 141 <=159 (mg/dL) Final Non-HDL Cholesterol Referenc e Range (mg/dL):
<100 Target level for high risk ASCVD patient
<130 Optimal for general population
130-159 Near optimal for general population
160-189 Borderline High
190-219 High
>=220 Very High Performing Location [facility] [place] [address] [place] [address]
--- OUTSIDE RECORDS SUMMARY | 2024-03-09 15:42 | External Medical Summary | Summary of Care ---
Author Name Unknown Organization [facility] Address [address] [place] [address] Phone [phone] Care Team Providers Care Patient Insurance Clerk Name Role Phone Harley West DO Primary Care Provider [phone] Reason for Visit * Reason Comments Outpatient Testing Encounter Details Date Type Department Care Team (Late st Contact Info) Description 10/30/2023 9:50 AM EST Laboratory Laboratory [facility] [address] [place] [address] [place], Lab Scenery [address] [place] [address] Dyslipidemia, goal to be determined; Type 2 diabetes mellitus with hemoglobin A1c goal of less than 7.0% ([facility]); BPH with obstruction/lower urinary tract symptoms; Encounter [...] (Prevnar) 10/29/2018 Pneumococcal Polysaccharide PPV23 (Pneumovax) 09/12/2011 SEASONAL INFLUENZA, PF, 6 M & Above, IM , (FLULAVAL or FLUZONE) 10/29/2018,11/06/2017 Season Influenza, Quad, PF, Adjuvanted, 65+ Yrs, IM (FLUAD) 09/11/2020 Seasonal Influenza, Quadriva lent Hd (Fluzone Hd) [...] 10:20 AM EDT Office Visit Family Practice [facility] [place] [address] [place], [place] [address] Harley West DO [address] [place] [address] Pending Results Name Type Priority Associated Diagnoses Date /Time LIPID PANEL WITH DIRECT LDL IF TG IS HIGH Lab Routine Dyslipidemia, goal to be determined 10/30/2023 9:53 AM EST HEMOGLOBIN A1C Lab Routine Type 2 diabetes mellitus with hemoglobin A1c goal of less than 7.0% ([facility]) 10/30/2023 9:53 AM EST ALBUMIN / CREATININE RATIO, URINE Lab Routine Type 2 diabetes mellitus with hemoglobin A1c goal of less than 7.0% ([facility]) 10/30/2023 2:19 PM EST PSA Lab Routine BPH with obstruction/lower urinary tract symptoms 10/30/2023 9:53 AM EST VITAMIN B12 Lab [...] Vaccine ( season) 2023 01/30/2021, 01/09/2021 HbA1c 09/19/2023 03/20/2023, 07/25, 10/16/2021, Additional history exists Diabetic Eye Exam 10/10/2024 10/10/2023, , 05/24/2021, Additional history exists Diabetic Foot Exam 10/22/2024 10/22/2023, 0 08/12/2022, 03/26/2021, Additional history exists GFR 10/30/2024 10/30/2023, 07/25, 06/01/2021, Additional history exists Cologuard 10/29/2025 10/29/2022, 09/26, 10/23/2022 Colorectal Cancer Screening 10/29/2025 Lipid Panel 08/05/2027 08/05/2022, 0707/2021, 08/04/2020, Additional history exists DTaP,Tdap,and Td Vaccines [...] Procedure Name Priority Date/Time Associated Diagnosis Comments COMPREHENSIVE METABOLIC PANEL Routine 10/30/2023 9:53 AM EST Dyslipidemia, goal to be determined MAGNESIUM Routine 10/30/2023 9:53 AM EST Encounter for long-term (current) use of medications documented in this encounter Results * MAGNESIUM (10/30/2023 9:53 AM EST) Magnesium 2.1 1.5 - 2.6 mg/dL 10/30/2023 12:19 PM EST [facility] 56-02 Blood Venous blood specimen / Unknown Venipuncture / Unknown 10/30/2023 9:53 AM EST 10/30/2023 9:53 AM EST Lianne Campbell [facility] LAB BLOOD ORDERABLES [facility] 56- [address] [place] [address] * (ABNORMAL) COMPREHENSIVE METABOLIC PANEL (10/30/2023 9:53 AM EST) BUN 18 6 - 20 mg/dL 10/30/2023 11:13 AM EST [facility] [place] 56-02 Creatinine 0.89 0.6 - 1.2 mg/dL 10/30/2023 11:13 AM EST [facility] 56-02 Estimated Glomerular Filtration Rate >90 >=60 mL/min 10/30/2023 11:13 AM EST [facility] 56-02 Comment:eGFR is calculated b ased on the CKD-EPI 2020 equation Sodium 138 135 - 146 mmol/L 10/30/2023 11:13 AM EST [facility] 56-02 Potassium 4.3 3.5 - 5.1 mmol/L 10/30/2023 11:13 AM EST [facility] 56-02 Chloride 98 98 - 107 mmol/L 10/30/2023 11:13 AM [facility] 56- CO2 27 22 - 32 mmol/L 10/30/2023 11:13 AM [facility] 56- Anion Gap 13 7 - 15 mmol/L 10/30/2023 11:13 AM [facility] 56 Glucose 148(H) 70 - 120 mg/dL 10/30/2023 11:13 AM [facility] 56- Albumin 4.8 3.8 - 5.0 g/dL 10/30/2023 11:13 AM [facility] 56 AST 23 10 - 50 U/L 10/30/2023 11:13 AM [facility] 56 Alkaline Phosphatase 72 35 - 130 U/L 10/30/2023 11:[address] Bilirubin, Total 0.5 <=1.2 mg/dL 10/30/2023 11:13 AM EST [address] Calcium 9.7 8.4 - 10.2 mg/dL 10/30/2023 11:[address] Protein 6.8 6.0 - 8.3 g/dL 10/30/2023 11:13 AM [facility] 56 ALT 42 10 - 50 U/L 10/30/2023 11:13 AM [facility] 56 Blood Venous blood specimen / Unknown Venipuncture / Unknown 10/30/2023 9:53 AM EST 10/30/2023 9:53 AM EST Narrative [facility] 56- - 10/30/2023 11:13 AM EST Harley West LAB BLOOD ORDERABLE S [facility] [address] [place] [address] documented in this encounter Visit Diagnoses Diagnosis Dyslipidemia, goal [...] medications documented in this encounter Care Teams Patient Insurance Clerk Relationship Specialty Start Date End Date Harley West DO [address] [place] [address] PCP - General Family Medicine 10/16/21 documented as of this encounter
--- OUTSIDE RECORDS SUMMARY | 2024-03-09 15:42 | External Medical Summary | Summary of Care ---
Author Name Unknown Organization [facility] Address [address] [place] [address] Phone [phone] Care Team Providers Care Tree Farmer Name Role Phone Harley West DO Primary Care Provider [phone] Reason for Visit * Reason Comments Outpatient Testing Encounter Details Date Type Department Care Team (Late st Contact Info) Description 10/30/2023 9:50 AM EST Laboratory Laboratory [facility] [address] [place] [address] [place], Lab Scenery [address] [place] [address] Dyslipidemia, goal to be determined; Type 2 diabetes mellitus with hemoglobin A1c goal of less than 7.0% ([facility]); BPH with obstruction/lower urinary tract symptoms; Encounter [...] 10:20 AM EDT Office Visit Family Practice [facility] [address] [facility] [place] [address] Harley Wset, DO [address] [facility] [place] [address] Pending Results Name Type Priority Associated Diagnoses Date /Time COMPREHENSIVE METABOLIC PANEL Lab Routine Dyslipidemia, goal to be determined 10/30/2023 9:53 AM EST LIPID PANEL WITH DIRECT LDL IF TG IS HIGH Lab Routine Dyslipidemia, goal to be determined 10/30/2023 9:53 AM EST HEMOGLOBIN A1C Lab Routine Type 2 diabetes mellitus with hemoglobin A1c goal of less than 7.0% ([facility]) 10/30/2023 9:53 AM EST PSA Lab Routine [...] medications documented in this encounter Care Teams Tree Farmer Relationship Specialty Start Date End Date Harley West DO [address] [place] [address] PCP - General Family Medicine 10/16/21 documented as of this encounter
--- OUTSIDE RECORDS SUMMARY | 2024-03-09 15:42 | External Medical Summary | Summary of Care ---
Author Name Unknown Organization [facility] Address [address] [place] [address] Phone [phone] Care Team Providers Care Inspector Bicycle Name Role Phone Harley West DO Primary Care Provider [phone] Reason for Visit * Reason Onset Date Comments Medication Refill 11/18/2023 Encounter Details Date Type Department Care Team (Late st Contact Info) Description 11/18/2023 Refill Family Practice [facility] [place] [address] [facility] [place] [address] Harley West DO [address] [facility] [place], [place] [address] Type 2 diabetes mellitus with hemoglobin A1c goal of less than 7.0% ([facility]) Allergies Active Allergy Reactions Criticality Noted Date Comments Atorvastatin Other (Please comment) 04/19/2016 Severe joint pain. documented as of this encounter (statuses as of 11/20/2023) Medications Medication Sig Dispensed Refills Start Date [...] Strength: 100 UNIT/ML 60 mL 5 11/20/2023 Active Levemir FlexPen 100 UNIT/ML Subcutaneous Solution Pen-injector (Insulin Detemir)Indication s:Type 2 diabetes mellitus with hemoglobin A1c goal of less than 7.0% (HCC) INJECT 34 UNITS UNDER THE SKIN TWICE A DAY OR DIRECTED.. 60 mL 0 09/02/2023 11/18/2023 Discontinue d(Refill) documented as of this encounter (statuses as of 11/20/2023) Active Problems Problem Noted Date Diagnosed Date [...] as of this encounter (statuses as of 11/20/2023) Resolved Problems Problem Noted Date Diagnosed Date Resolved Date ADVANCE DIRECTIVE INFORMATION 07/05/2005 09/16/2016 Overview: No, Advance Directive brochure given to patient. Screening for prostate cancer 08/10/2004 02/01/2009 Overview: Resolved per Screening Diagnosis Protocol #6 documented as of this encounter (statuses as of 11/20/2023) Immunizations Name Administration Dates Next Due COVID-19 [...] encounter Miscellaneous Notes * Telephone Encounter - Mariela Kathryn CL Gupta - 11/20/2023 8:43 AM ESTSigned Prescriptions: Disp Refills Levemir FlexPen 100 UNIT/ML Subcutaneous S*60 mL 5 Sig: Inject 34 Units under the skin 2 times a day with morning and evening meals. INJECT 34 UNITS UNDER THE SKIN TWICE A DAY OR DIRECTED.. Strength: 100 UNIT/ML Authorizing Provider: MARIELA FEBRUARY Alonso < BR> * Telephone Encounter - Fredy Nolan RPh - 11/20/2023 7:46 AM ESTPending Prescriptions: Disp Refills Levemir FlexPen 100 UNIT/ML Subcutaneous S*60 mL 0 Sig: INJECT 34 UNITS UNDER THE SKIN TWICE A DAY OR DIRECTED.. Strength: 100 UNIT/ML * Telephone Encounter - Fredy Nolan RPh - 11/20/2023 7:45 AM EST Unable to authorize medication refills for pended medication(s) at this time. Part of the protocol criteria used for refill authorization was not satisfied. Patient's A1C is above protocol parameters. Please approve if appropriate. Thanks, Rosas Nolan, PharmD Clinical Pharmacist [facility]acy Services ([facility]PS) (Formerly Telepharmacy) [phone] 11/20/2023 7:45 AM documented in this encounter Plan of Treatment Upcoming Encounters Date Type Department Care Team (Late st Contact Info) Description 05/19/2024 10:20 AM EDT Office Visit Family Practice [facility] [address] [place] [address] Harley West DO [address] [place] [address] Health Maintenance Due Date Last Done Comments [...] (HCC) documented in this encounter Care Teams Inspector Bicycle Relationship Specialty Start Date End Date Harley West DO [address] [place] [address] PCP - General Family Medicine 10/16/21 documented as of this encounter
--- OUTSIDE RECORDS SUMMARY | 2024-03-09 15:42 | External Medical Summary | Summary of Care ---
Author Name Unknown Organization [facility] Address [address] [place] [address] Phone [phone] Care Team Providers Care Conference Planning Manager Name Role Phone Brent Johnson DO Primary Care Provider [phone] Reason for Visit * Reason Comments eRx-Medication Refill Encounter Details Date Type Department Care Team (Late st Contact Info) Description 11/18/2023 Refill Family Practice [facility] [address] [facility] [place] [address] Brent Johnson DO 200 [facility] [place] [address] HTN, goal below 140/90; Type 2 diabetes mellitus with hemoglobin A1c goal of less than 7.0% ([facility]) Allergies Active Allergy Reactions Criticality Noted Date Comments Atorvastatin Other (Please comment) 04/19/2016 Severe joint pain. documented as of this encounter (statuses as of 11/19/2023) Medications Medication Sig Dispensed Refills Start Date [...] goal of less than 7.0% ([facility]) TAKE 1 TABLET BY MOUTH TWICE DAILY [...] ONCE DAILY 30 Tablet 5 11/19/2023 Active amLODIPine Besylate 10 MG Oral Tablet (Norvasc)Indicatio ns:HTN, goal below 140/90 TAKE 1 TABLET BY MOUTH ONCE DAILY 30 Tablet 5 05/21/2023 Discontinued documented as of this encounter (statuses as of 11/19/2023) Active Problems Problem Noted Date Diagnosed Date [...] as of this encounter (statuses as of 11/19/2023) Resolved Problems Problem Noted Date Diagnosed Date Resolved Date ADVANCE DIRECTIVE INFORMATION 07/05/2005 09/16/2016 Overview: No, Advance Directive brochure given to patient. Screening for prostate cancer 08/10/2004 02/01/2009 Overview: Resolved per Screening Diagnosis Protocol #6 documented as of this encounter (statuses as of 11/19/2023) Immunizations Name Administration Dates Next Due COVID-19 [...] encounter Miscellaneous Notes * Telephone Encounter - Mason Rosa, [facility] - 11/19/2023 2:10 PM EST Signed Prescriptions: Disp Refills amLODIPine Besylate 10 MG Oral Tablet (Nor*30 Tab*5 Sig: TAKE 1TABLET BY MOUTH ONCE DAILYAuthorizing Provider: BRENT JOHNSON User: MASON ROSARefused Prescriptions: Disp Refills Levemir FlexPen 100 UNIT/ML Subcutaneous S*15 mL 0 Sig: INJECT 34 UNITS UNDER THE SKIN TWICE A DAY OR DIRECTED..Refused By: MASON ROSAason for Refusal: Duplicate Request documented in this encounter Plan of Treatment Upcoming Encounters Date Type Department Care Team (Late st Contact Info) Description 05/19/2024 10:20 AM EDT Office Visit Family Practice [facility] [place] [address] [place], [place] [address] Brent Johnson DO [address] [place], [place] [address] Health Maintenance Due Date Last Done Comments [...] as of this encounter Visit Diagnoses Diagnosis HTN, goal below 140/90 Unspecified essential hypertension Type 2 diabetes mellitus with hemoglobin A1c goal of less than 7.0% (HCC) documented in this encounter Care Teams Conference Planning Manager Relationship Specialty Start Date End Date Bernt Johnson DO [address] [place] [address] PCP - General Family Medicine 10/16/21 documented as of this encounter
--- OUTSIDE RECORDS SUMMARY | 2024-03-09 15:42 | External Medical Summary ---
Author Name Unknown Address Unknown Organization K01:[facility] [address] [place] [address] Laboratory Report Ordering Provider Test Date Status ELIZABETH KENNEDY 10/30/2023 09:53:16 Final Observation Date Value Abnormality Reference (Units ) Status PSA 10/30/2023 09:53:16 3.37 <4.10 (ng/ mL) Final Performing Location [facility] - [address] [place] [address]
--- OUTSIDE RECORDS SUMMARY | 2024-03-09 15:42 | External Medical Summary ---
Author Name Unknown Address Unknown Organization K01:[facility] - [address] [place] [address] Laboratory Report Ordering Provider Test Date Status MJ SWAIN 10/30/2023 09:53:16 Final Observation Date Value Abnormality Reference (Units ) Status Vitamin B12 10/30/2023 09:53:16 [phone] (pg/mL) Final Performing Location [facility] - [address] [place] [address]
--- OUTSIDE RECORDS SUMMARY | 2024-03-09 15:42 | External Medical Summary | Summary of Care ---
Author Name Unknown Organization [facility] Address [address] [place] [address] Phone [phone] Care Team Providers Care Membership Advisor Name Role Phone Harley West DO Primary Care Provider [phone] Encounter Details Date Type Department Care Team (Late st Contact Info) Description 09/16/2023 Orders Only Outcomes Research Department [address] [place], [place] [id number] Gail León CHRA [employer] Other*[id number] Allergies Active Allergy Reactions Criticality Noted Date Comments Atorvastatin Other (Please comment) 04/19/2016 Severe joint pain. documented as of this encounter (statuses as of 09/16/2023) Medications Medication Sig Dispensed Refills Start Date [...] hemoglobin A1c goal of less than 7.0% ([facility]) INJECT 34 UNITS UNDER THE SKIN TWICE A DAY OR DIRECTED.. 60 mL 0 09/02/2023 Active documented as of this encounter (statuses as of 09/16/2023) Active Problems Problem Noted Date Diagnosed Date [...] as of this encounter (statuses as of 09/16/2023) Resolved Problems Problem Noted Date Diagnosed Date Resolved Date ADVANCE DIRECTIVE INFORMATION 07/05/2005 09/16/2016 Overview: No, Advance Directive brochure given to patient. Screening for prostate cancer 08/10/2004 02/01/2009 Overview: Resolved per Screening Diagnosis Protocol #6 documented as of this encounter (statuses as of 09/16/2023) Immunizations Name Administration Dates Next Due COVID-19 [...] drink = 0.6 oz pur e alcohol) Sex and Gender Information Value Date Recorded [...] 9:20 AM EST Office Visit Family Practice [facility] [address] [facility] [place] [address] Harley West, [address] [facility] [place] [address] Scheduled Orders Name Type Priority Associated Diagnoses Orde r Schedule MYCODE SUBSEQUENT ADULT Lab Routine [employer] Other*[id number] Every 6 Months for 2 Occurrences starting 09/16/2023 until 10/05/2024 Health Maintenance Due Date Last Done Comments Hepatitis C Screening 1971 Fecal Occult Blood Test 1998 Sigmoidoscopy 1998 Zoster Vaccines (1 of 2) 2003 Colonoscopy 11/14/2015 11/14/2005 Albumin/Creatinine Ratio 08/31/2019 018, 12/19/2016, 07/10/2015, Additional history exists Pneumococcal Vaccine: 65+ Years (3 - PPSV23 or PCV20) 10/29/2019 10/29/2018, 09/12/2011 Depression Screening 03/26/2022 03/26/2021 COVID-19 Vaccine (3 - 2022- season) 2023 01/30/2021, 01/09/2021 Influenza Vaccine (FLU shot) (#1) 2023 10/09/2021, 09/11/2020, 10/29/2018, Additional history exists GFR 08/05/2023 08/05/2022, 07/0 07/2021, 08/04/2020, Additional history exists DIABETES-EYE EXAM 08/09/2023 08/09/2022, , 03/26/2021, Additional history exists Diabetic Foot Exam 08/12/2023 [...] as of this encounter Visit Diagnoses Diagnosis [employer] Other*[id number] documented in this encounter Care Teams Membership Advisor Relationship Specialty Start Date End Date Harley West DO [address] [place] [address] PCP - General Family Medicine 10/16/21 documented as of this encounter
--- OUTSIDE RECORDS SUMMARY | 2024-03-09 15:42 | External Medical Summary ---
Author Name Unknown Address Unknown Organization K01:[facility] - [address] [place] [address] Laboratory Report Ordering Provider Test Date Status ELIZABETH KENNEDY 10/30/2023 09:53:16 Final Observation Date Value Abnormality Reference (Units ) Status LDL, (direct) 10/30/2023 09:53:16 104 <=129 (mg/dL) Final LDL Cholesterol Reference Ra nges (mg/dL):
<70 Target level for high risk ASCVD patient
<100 Optimal for general population
100-129 Near optimal for general population
130-159 Borderline high
160-189 High
>=190 Very high Performing Location [facility] - [address] [place] [address]
--- OUTSIDE RECORDS SUMMARY | 2024-03-09 15:42 | External Medical Summary | Summary of Care ---
Author Name Unknown Organization [facility] Address [address] [place] [address] Phone [phone] Care Team Providers Care Lobby Concierge Name Role Phone Brent Johnson DO Primary Care Provider [phone] Reason for Visit * Reason Comments eRx-Medication Refill Encounter Details Date Type Department Care Team (Late st Contact Info) Description 12/10/2023 Telephone Family Practice [facility] [address] [facility] [place] [address] Kathryn Sierra PA-C [address] [facility] [place] [address] eRx-Medication Refill Allergies Active Allergy Reactions Criticality [...] Notes * Telephone Encounter - Holly Lucero, [facility] - 12/16/2023 9:30 AM EST Submitted prior authorization for Levemir via [facility] (Vazquez: [id number]). Instructed by [facility] to call patients insurance at [employer], Insulin Glargine Solostar, Semglee, Toujeo and Tresiba do not require prior auth and we could consider subsituting if agreeable. Tresiba is in stock at patients pharmacy. Please advise. Holly Garcia [facility] Clinical Pharmacist Centralized Clinical Pharmacy Services (CCPS) (Formerly Telepharmacy) [phone] * Telephone Encounter - Kierra Dillon PHARM Tech - 12/11/2023 10:02 AM EST This is a new [place] request. Upon review of this prior authorization request, I verified this request is appropriate. This is prescribed by a department for which [facility] is authorized to review prior authorizations This [...] note, there is nothing currently pending in [facility] for this request. Please advise how to proceed. ThanksKierra Information Technology Advisor III Centralized Clinical Pharmacy Services (CCPS) 12/11/2023,10:02 AM * Telephone Encounter - Kierra Hernandez PHARM Tech - 12/10/2023 2:58 PM EST Pharmacy calling to inform doctor that the patient's insurance will not pay for this medication. Did confirm this information with the pharmacy. Pt's current insurance information is as follows: Patient name: Meliton Hendricks ID number: [id number] BIN number: [id number] PCN number: Group number: [id number] Subscriber name: Meliotn Hendricks Primary or Secondary Insurance:Primary Medication: Levemir FlexPen 100 UNIT/ML Reason for Request: not covered Pharmacy and phone number: [facility]- [place] Rx plan and phone number: [employer] [phone] Is this a new medication for the patient? No. How did the patient obtain the medication on the lastfill? It was covered last time on this same insurance. What alternative medications does the pharmacy have in stock?: katharina Thank you, [facility] Information Technology Advisor II [facility] Clin[facility] Pharmacy Services ([facility] 12/10/2023,2:58 PM * Telephone Encounter - Brent Johnson DO - 12/10/2023 2:47 PM ESTSigned Prescriptions: Disp Refills Levemir FlexPen 100 UNIT/ML Subcutaneous S*15 mL 2 Sig: INJECT 34 UNITS 2 TIMES DAILY (MORNING & EVENING MEALS), OR DIRECTED. Authorizing Provider: BRENT JOHNSON * Telephone Encounter - Holly Lucero [facility] - 12/10/2023 2:36 PM EST Pending Prescriptions: Disp Refills Levemir FlexPen 100 UNIT/ML Subcutaneous S*15 mL 2 Sig: INJECT 34 UNITS 2 TIMES DAILY (MORNING & EVENING MEALS), OR DIRECTED. * Telephone Encounter - Holly Lucero [facility] - 12/10/2023 2:35 PM EST Unable to authorize medication refills for pended medication(s) at this time. Part of the protocol criteria used for refill authorization was not satisfied. Patient needs A1C <7%. Please approve if appropriate. Thanks, Holly Lucero [facility] Clinical Pharmacist Centralized Clinical Pharmacy Services ([facility]PS) (Formerly [employer]) [phone] HEMOGLOBIN A1C [facility] Date/Time Value Ref Range Status 10/30/2023 09:53 [...] 10:20 AM EDT Office Visit Family Practice [facility] [address] [facility] [place] [address] Brent Johnson, [address] [facility] [place] [address] Health Maintenance Due Date Last Done Comments [...] (HCC) documented in this encounter Care Teams Lobby Concierge Relationship Specialty Start Date End Date Brent Johnson DO [address] [place] [address] PCP - General Family Medicine 10/16/21 documented as of this encounter
--- NOTE | 2024-03-09 15:54 | History & Physical Report ---
Date of Service March 09, 2024 Assessment & Plan (1) Acute metabolic encephalopathy: (2) Sepsis: Plan: This is a 68yo M with a PMH of DM II, HTN, dyslipidemia, GERD, statin intolerance and other medical problems listed below who presents to ED with SOB and lethargy. Family reports him running a fever over the last few days at home and was found to have acute metabolic encephalopathy in setting of sepsis of unknown source, acute hypoxic resp failure. Increased lethargy x 2 weeks, sore throat for past week, started erythromycin 1 week ago (cattle abx found in barn- not positive on type) Hypertensive, tachycardic, febrile up to 40 C Lactate 2.1 -> 1.9, procal wnl, TSH wnl Work up: UTI, Chest CTA, viral resp panel including tick serology without clear infectious source Etoh level normal, Utox pending Became more somnolent and confused in ED and was intubated by Dr. Ashley CT head without hemorrhage, mass effect, or evidence of acute territorial ischemia by CT criteria Discussed with Dr. Mensah upon request for admission, LP obtained Expanded initial Zosyn, vanc to rocephin, ampicillin, acyclovir to cover empirically for meningitis - doxy added LP performed in ED -CSF WBC 6, glucose 107, total protein 111.8. Remainder pending Discussed with Diallo VANG in ED - added brain MRI w/wo, will evaluate (3) Acute hypoxemic respiratory failure: Plan: Initially 88% on RA, requiring supplemental O2 prior to intubation. VBG pH 7.45 CTA chest without evidence of pulmonary embolus in the main, lobar, or segmental pulmonary arteries. Cardiomegaly noting advanced coronary artery atherosclerosis. No airspace consolidation or pleural effusion is identified (4) DM (diabetes mellitus): Plan: A1c 9.2 Hold home agents SSI while in-patient BSG AC HS (5) HTN (hypertension): Plan: Initially hypertensive, normalized now. Continue amlodipine, losartan in AM once able to take PO DVT Ppx: SQ heparin Code status: FULL Dispo: Admitted to ICU Patient seen in collaboration with Dr. Capone. Please see addendum. I spent a total of 80 minutes coordinating, documenting, and providing care for this patient excluding time spent in the performance of separately billed services. History of Present Illness Chief Complaint: [facility] Primary Care Provider: Harley West DO This is a 68yo M with a PMH of DM II, HTN, dyslipidemia, GERD, statin intolerance and other medical problems listed below who presents to ED with SOB and lethargy. Family reports him running a fever over the last few days at home. 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 unsure if marilyn ent is around pesticides. Was 84% on RA on arrival. Does not require O2 at baseline. States he was complaining of feeling run down and started taking Erythromycin he found in his barn leftover from animals. not aware of any other medication changes. No complaints of headache, CP, abd pain or SOB to yesterday. Confirmed full code status. Condition declined while in ED and Dr. Zelaya intubated. ROS unobtainable due to mech vent and sedation. Allergies Allergy/AdvReac Type Severity Reaction Status Date / Time No Known Allergies Allergy Unverified 09/12/14 09:34 Home Medications Medication Instructions Recorded Confirmed Type allopurinol 300 mg tablet 300 mg PO DAILY ##30 09/10/14 03/09/24 History hydrochlorothiazide 25 mg tablet 25 mg PO DAILY ##30 09/10/14 03/09/24 History losartan 100 mg tablet 100 mg PO DAILY ##30 09/10/14 03/09/24 History omeprazole 20 mg capsule,delayed 20 mg PO DAILY ##30 09/10/14 03/09/24 History release amlodipine 10 mg tablet 10 mg PO DAILY 03/09/24 03/09/24 History aspirin 325 mg tablet 325 mg PO DAILY 03/09/24 03/09/24 History colchicine 0.6 mg tablet 0.6 mg PO TID 03/09/24 03/09/24 History empagliflozin 25 mg tablet 25 mg PO DAILY 03/09/24 03/09/24 History (Jardiance) glipizide 10 mg tablet, extended 10 mg PO BID 03/09/24 03/09/24 History release 24 hr ibuprofen 800 mg tablet 800 mg PO Q8H PRN Pain 03/09/24 03/09/24 History insulin degludec 200 unit/mL (3 26 unit subcut AMPM 03/09/24 03/09/24 History mL) subcutaneous pen (Tresiba FlexTouch U-200 insulin) multivitamin 1 tab PO DAILY 03/09/24 03/09/24 History potassium 75 mg tablet 75 mg PO DAILY 03/09/24 03/09/24 History semaglutide 0.25 mg or 0.5 mg (2 0.25 mg subcut UD 03/09/24 03/09/24 History mg/3 mL) subcutaneous pen injector (Ozempic) tamsulosin 0.4 mg capsule 0.4 mg PO DAILY 03/09/24 03/09/24 History vitamin B complex 1 tab PO DAILY 03/09/24 03/09/24 History vitamin E 400 unit tablet 45 mg PO DAILY 03/09/24 03/09/24 History Past Med/Surg History Medical History HTN (hypertension) Encounter for removal of nasal packing DM (diabetes mellitus) HTN (hypertension) Epistaxis Surgical History History of tonsillectomy H/O sinus surgery Family History Other Heart disease Lung cancer Social History Smoking Status: Never smoker Hx Alcohol Use: No Hx Substance Use: No Preferred Language: Nicaraguan Feels Safe at Home: Yes Review of Systems Review of Systems: Unobtainable due to endotracheal tube Physical Exam Physical Exam: Please see 's addendum for physical exam. Results & Data Results & Data Vital Signs (Past 12 Hours) Vital Signs Temp Pulse Pulse Resp BP BP Pulse Ox 03/09/24 15:45 122 H 03/09/24 15:31 123 H 31 H 95 03/09/24 15:31 143/87 H 03/09/24 15:30 36.7 C 03/09/24 15:30 123 H 33 H 95 03/09/24 15:17 127 H 30 H 100 03/09/24 15:17 136/95 03/09/24 14:40 111 H 25 H 121/84 98 03/09/24 13:00 110 H 22 120/90 92 03/09/24 12:30 110 H 22 135/87 93 03/09/24 12:21 110 H 25 H 135/87 95 03/09/24 11:38 115 H 03/09/24 11:26 38.1 C H 116 H 18 131/80 92 03/09/24 11:26 116 H 18 92 03/09/24 11:26 38.1 C H 116 H 18 131/80 92 03/09/24 11:20 84 L O2 Del Method O2 Flow Rate 03/09/24 15:45 03/09/24 15:31 03/09/24 15:31 03/09/24 15:30 03/09/24 15:30 03/09/24 15:17 03/09/24 15:17 03/09/24 14:40 Nasal Cannula 4 03/09/24 13:00 Nasal Cannula 4 03/09/24 12:30 Nasal Cannula 4 03/09/24 12:21 Nasal Cannula 4 03/09/24 11:38 03/09/24 11:26 Nasal Cannula 4 03/09/24 11:26 Nasal Cannula 4 03/09/24 11:26 Nasal Cannula 4 03/09/24 11:20 Nasal Cannula 0 Laboratory Results Short CBC 03/09/24 Range/Units 11:26 WBC 19.50 H (4.8-10.8) K/ul Hgb 15.5 (14.0-18.0) g/dl Hct 44.1 (42.0-52.0) % Plt Count 303 (130-400) K/uL BMP 03/09/24 11:26 Sodium 132 L Potassium 3.3 L Chloride 98 Carbon Dioxide 25 BUN 18 Creatinine 0.97 Glucose 207 H Calcium 8.9 Liver Function 03/09/24 Range/Units 11:26 Total Bilirubin 0.6 (0.2-1.0) mg/dl Direct Bilirubin 0.2 (0-0.2) mg/dl AST 14 (13-39) U/L ALT 25 (7-52) U/L Alkaline Phosphatase 77 (34-104) U/L Albumin 4.0 (3.4-5.0) gm/dl Urine 03/09/24 Range/Units 13:58 Urine Color Yellow Urine Appearance Clear (Clear) Urine pH 6.5 (4.5-7.5) Ur Specific Dale > 1.045 H (1.000-1.030) Urine Protein 1+ H (Negative) Urine Glucose (UA) 3+ H (Negative) Diagnostic Findings Chest X-Ray 03/09/24 11:16 SINGLE VIEW CHEST CLINICAL HISTORY: Sepsis. FINDINGS: 2 AP, portable, upright chest radiographs are obtained. No prior studies are available for comparison at the time of dictation. The examination is degraded by portable technique, apical lordotic positioning, and patient rotation. The heart is enlarged noting atherosclerotic calcification of the thoracic aorta. The pulmonary vasculature is noncongested. There is bibasilar scarring/atelectasis. The lungs and pleural spaces are otherwise clear. No pneumothorax is seen. The skeletal structures are osteopenic. The bony thorax is grossly intact. IMPRESSION: Cardiomegaly with no acute cardiopulmonary abnormality identified. ACT 112: Negative or not required by law. Electronically signed by: Jaspreet Jean M.D. 03/09/2024 11:50 AM Chest CTA 03/09/24 12:30 CT ANGIOGRAM OF THE CHEST CLINICAL HISTORY: Dyspnea. Hypoxia. COMPARISON STUDY: Chest x-ray dated 03/09/2024. TECHNIQUE: Following the IV administration of 118 cc of Optiray 320, CT angiogram of the chest was performed from the upper abdomen to the thoracic inlet utilizing the pulmonary embolus protocol. Images are reviewed in the axial, sagittal, and coronal planes. 3-D MIPS images are created and assessed. IV contrast was administered without complication. A dose lowering technique was utilized adhering to the principles of ALARA. CT DOSE: 933.46 mGy.cm FINDINGS: Thyroid: Imaged portions of the thyroid gland are normal in size and attenuation. Thoracic aorta: There is mild atherosclerotic calcification of the thoracic aorta, which is normal in caliber and demonstrates standard 3-vessel arch anatomy. No dissection is seen. Pulmonary vasculature: The pulmonary trunk is normal in caliber. There are no filling defects identified in main, lobar, or segmental pulmonary branches to suggest pulmonary embolus. Heart: The heart is enlarged and without pericardial effusion. The coronary arteries are densely calcified. Lungs and pleural spaces: Evaluation of the lung parenchyma is degraded by motion artifact. There is no airspace consolidation or pleural effusion. Dependent scarring/atelectasis is noted at both lung bases. The trachea and central airways are clear. Mediastinum: There is no mediastinal lymphadenopathy. Gretel: Clear. Axillae: There is no axillary lymphadenopathy. Upper abdomen: There are calcified gallstones with no CT evidence of acute cholecystitis. The liver is steatotic. The spleen is enlarged measuring 15.3 cm in length. A small hiatal hernia is noted. Skeletal structures: No lytic or blastic bony lesions are seen. Degenerative change is noted in the shoulders and spine. IMPRESSION: 1. There is no evidence of pulmonary embolus in the main, lobar, or segmental pulmonary arteries. 2. Cardiomegaly noting advanced coronary artery atherosclerosis. 3. No airspace consolidation or pleural effusion is identified. 4. Cholelithiasis. 5. Hepatic steatosis and splenomegaly. 6. Additional findings as above. ACT 112: Negative or not required by law. Electronically signed by: Jaspreet Jean M.D. 03/09/2024 1:[address] 03/09/24 15:36 CT SCAN OF THE BRAIN WITHOUT IV CONTRAST CLINICAL HISTORY: Change in mental status. COMPARISON STUDY: No priors. TECHNIQUE: Unenhanced axial CT scan of the brain is performed from the vertex to the skull base. A dose lowering technique was utilized adhering to the principles of ALARA. The examination is degraded by the presence of residual IV contrast throughout the intracranial circulation. CT DOSE: 1012.93 mGy.cm FINDINGS: Brain parenchyma: There is age-related involutional change noting mild subcortical and periventricular microangiopathic disease. There is no hemorrhage, mass effect, or evidence of acute territorial ischemia by CT criteria. Young-white matter differentiation is preserved. No extra-axial fluid collection is seen. Ventricles, sulci, cisterns: Prominent secondary to involutional change. Intracranial vasculature: There is atherosclerotic calcification of the cavernous carotid and vertebral arteries. Calvarium: Unremarkable. Sinuses and mastoids: A 12 mm retention cyst is noted in the right maxillary antrum. Trace mucosal thickening is seen in the left maxillary sinus. The remaining paranasal sinuses are clear. The mastoid air cells are well pneum atized. Orbits: The bony orbits are grossly intact. IMPRESSION: There is no hemorrhage, mass effect, or evidence of acute territorial ischemia by CT criteria. ACT 112: Negative or not required by law. Electronically signed by: Jaspreet Jean M.D. 03/09/2024 5:31 PM Chest X-Ray 03/09/24 15:55 SINGLE VIEW CHEST CLINICAL HISTORY: Dyspnea. FINDINGS: An AP, portable, semi-erect chest radiograph is compared to chest x- ray and chest CT performed earlier the same day 03/09/2024. The examination is degraded by portable technique and patient rotation. An endotracheal tube has been placed. The tip projects approximately 4 cm above the kat. The heart is enlarged noting atherosclerotic calcification of the thoracic aorta. There is pulmonary vascular congestion. There is bibasilar scarring/atelectasis. No airspace consolidation, large pleural effusion, or pneumothorax is seen. The skeletal structures are osteopenic. The bony thorax is grossly intact. IMPRESSION: 1. An endotracheal tube has been placed as above. 2. Cardiomegaly. Pulmonary vascular congestion is new from today's earlier examinations. ACT 112: Negative or not required by law. Electronically signed by: Jaspreet Jean M.D. 03/09/2024 4:40 PM ECG Additional Comments: EKG reviewed- sinus tachycardia 116, non-specific ST abnormality Code Status & VTE Plan VTE Prophylaxis Plan VTE Prophylaxis will be ordered: Yes
[2024-03-09] MEDS ORDERED: AMPICILLIN SOD/SULBACTAM SOD 1,500 MG in SODIUM CHLOR 0.9% MINI-B 100 ML IV STA (15:56)
[2024-03-09] MEDS ORDERED: STAT IV Infusion **Titration per Protocol STA (16:13)
[2024-03-09] MEDS: PROPOFOL BOLUS FROM BAG IV ONE (16:16)
[2024-03-09] MEDS: RAPID SEQUENCE INDUCTION BAG ONE (16:16)
[2024-03-09] MEDS: PROPOFOL IV EMULSION 10 MG/ML 100 ML VIAL IV ONE (16:16)
[2024-03-09] MEDS: ACETAMINOPHEN 1,000 MG/100 ML VIAL IV STA (16:17)
[2024-03-09] MEDS: propofoL 1,000 MG/100 ML VIAL IV SCH (16:19)
[2024-03-09] MEDS: CEFEPIME 20 ML IV STA (16:21)
[2024-03-09] MEDS: AMPICILLIN 2,000 MG in SODIUM CHLOR 0.9% MINI-B 100 ML IV STA (16:24)
[2024-03-09] MEDS: VANCOMYCIN HCL 2,750 MG in SODIUM CHLORIDE 0.9% 500 ML IV ONE (16:31)
--- NOTE | 2024-03-09 16:41 | XRay Report ---
SINGLE VIEW CHEST CLINICAL HISTORY: Dyspnea. FINDINGS: An AP, portable, semi-erect chest radiograph is compared to chest x-ray and chest CT perfor med earlier the same day 03/09/2024. The examination is degraded by portable technique and patient rot ation. An endotracheal tube has been placed. The tip projects approximately 4 cm above the kat. Th e heart is enlarged noting atherosclerotic calcification of the thoracic aorta. There is pulmonary va scular congestion. There is bibasilar scarring/atelectasis. No airspace consolidation, large pleural effusion, or pneumothorax is seen. The skeletal structures are osteopenic. The bony thorax is grossly intact. IMPRESSION: 1. An endotracheal tube has been placed as above. 2. Cardiomegaly. Pulmonary vascular congestion is new from today's earlier examinations. ACT 112: Negative or not required by law. Electronically signed by: Jaspreet Jean M.D. 03/09/2024 4:40 PM
[2024-03-09] MEDS: MAGNESIUM SULFATE / D5W 1 GM/100 ML BAG IV ONE (17:01)
--- NOTE | 2024-03-09 17:33 | CT Scan Report ---
CT SCAN OF THE BRAIN WITHOUT IV CONTRAST CLINICAL HISTORY: Change in mental status. COMPARISON STUDY: No priors. TECHNIQUE: Unenhanced axial CT scan of the brain is performed from the vertex to the skull base. A do se lowering technique was utilized adhering to the principles of ALARA. The examination is degraded b y the presence of residual IV contrast throughout the intracranial circulation. CT DOSE: 1012.93 mGy.cm FINDINGS: Brain parenchyma: There is age-related involutional change noting mild subcortical and periventricula r microangiopathic disease. There is no hemorrhage, mass effect, or evidence of acute territorial isc hemia by CT criteria. Young-white matter differentiation is preserved. No extra-axial fluid collection is seen. Ventricles, sulci, cisterns: Prominent secondary to involutional change. Intracranial vasculature: There is atherosclerotic calcification of the cavernous carotid and vertebr al arteries. Calvarium: Unremarkable. Sinuses and mastoids: A 12 mm retention cyst is noted in the right maxillary antrum. Trace mucosal th ickening is seen in the left maxillary sinus. The remaining paranasal sinuses are clear. The mastoid air cells are well pneumatized. Orbits: The bony orbits are grossly intact. IMPRESSION: There is no hemorrhage, mass effect, or evidence of acute territorial ischemia by CT crit josé. ACT 112: Negative or not required by law. Electronically signed by: Jaspreet Jean M.D. 03/09/2024 5:31 PM
[2024-03-09] MEDS: fentaNYL citrate PF 100 MCG/2 ML VIAL ONE (18:11)
[2024-03-09 18:23] LABS: Total Protein CSF 111.8 mg/dl (15-45)
[2024-03-09] MEDS: fentaNYL citrate PF 100 MCG/2 ML VIAL IV STA ×2 (18:27→18:41)
[2024-03-09 18:37] LABS: Appearance CSF Clear; CSF Count Tube # 3; CSF Xanthrochromic No xanthochromia; Color CSF Colorless
[2024-03-09 18:38] LABS: Red Blood Cell CSF Manual 3 (0-); White Blood Cell CSF Manual 6 (0-5)
[2024-03-09] MEDS: MIDAZOLAM HCL 1 MG/ML 2ML VIAL ONE (18:41)
[2024-03-09] MEDS: MIDAZOLAM HCL 1 MG/ML 2ML VIAL IV STA (18:41)
[2024-03-09] MEDS: fentaNYL citrate 2,500 MCG/250 ML BAG IV SCH (18:53)
--- NOTE | 2024-03-09 19:06 | Critical Care Consultation ---
Date of Consultation March 09, 2024 Assessment & Plan (1) Encephalopathy: (2) HTN (hypertension): (3) DM (diabetes mellitus): (4) Acute hypoxemic respiratory failure: (5) Hypomagnesemia: (6) Sepsis: Plan Reason Critically Ill: 68 YOM presents with concern of increasing fatigue and weakness- followed by fever, rigors and unresponsiveness. 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 Neuro - Encephalopathy- can't exclude infectious etiology, Sedation for Mechanical Ventilation CAM ICU: [facility] - Encephalopathy- concern for infectious nature with symptoms and acute al teration this afternoon requiring intubation- encephalitis vs. meningitis vs. other or combination - CT head and CTA negative - MRI with and without con is pending - He is without known immunocompromise or transplant recipient - LP performed by [facility]- Appreciate assistance - WBC- 6, Glucose 107, Protein 111.8, - Gram stain returned negative for WBC or organisms: Fungal- pending, lactate pending - Decadron 10mg IV now as with mild pleocytosis - while awaiting gram stain and cultures - Continue Rocephin 2GM IV q12, Vanco, Unasyn, Doxycycline, acyclovir - ID consultation - need to call in AM - Await further LP virology and rickettsial screenings as well as q fever - Tularemia serum for antibodies will also be sent - Terramycin possible ingestion - discussed case with poison control - currently would likely not cause current status- will continue to follow- no intervention at this time - Clarification from as she was able to text the bottle- he was taking Erythromycin 250mg oral - Will get confirmation from if able to get pill bottle - Temperature control attempt to maintain normothermia to prevent secondary injury - MRI with and without contrast - awaiting clearance films - No seizure activity suspected at this time - propofol and fentanyl for sedation goal JOAQUIN -1 Cardiac - HTN, HLD - Continue to hold home antihypertensives - ECG without STEMI - no evidence of shock Respiratory - Emergently intubated requiring mechanical ventilation - Secondary to encephalopathy and concern for ability to protect airway- - Wean as appropriate limiting factor at this time is encephalopathy GI - No acute needs - NPO - OGT to LIWS - Enteral feedings if remaining intubated > 24 hours RENAL/LYTES - Electrolyte disturbances - Replete per ICU protocol - Hyponatremia likely hypovolemic hyponatremic - continue plasmalyte - Vera to gravity ENDO - DMII - Hyperglycemia protocol goal <180mg/dl - Checks with coverage q6 hours HEME - No acute needs - no anemia noted - nomral INR ID Concern for KNITTING SUPERVISOR infection as well as possible tularemia- - Continue Vanco, Rocephin, Unasyn, Acyclovir, add Doxy - ID consultation pending through ID connect LINES/IV ACCESS - PIV, Vera, ETT, OGT Continue use of these lines DVT PROPHYLAXIS - Heparin 5000 units sub q TID DISPO: ICU while intubated and sedated I have personally spent 55 minutes of critical care time in the direct management of this patient. This is a life/limb threatening event. This includes time spent evaluating patient, direct bedside care, chart review, placing orders, interpretation of diagnostic studies, discussion with consultants, patient, and family members, as well as other required patient management activities. This time is exclusive of all separately billable procedures, and teaching time and separate from and in addition to any other critical care service time. Thank you for allowing us to participate in the care of this patient. Please refer to my attending physician's documentation for any further recommendations. Supervising Physician Co-Signing Physician Notes Patient seen and examined. EMR reviewed. Patient seen last evening and discussed with critical care APRIL. Agree with assessment plan as noted. 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 His reports that he has been feeling overly fatigued over the past 2 weeks. This progressed to him complaining of a sore throat that started within the past 1-2 days for which he put himself on Terramycin- cattle abx. This morning the patient woke up and fell at home, his heard him fall for which she got him up and called 911. She reports that he was mentating normally following this encounter and was moving all his extremities. In the EMD the patient was evaluated with routine labs CT scan of the head and CTA of the head completed. He was noted with WBC count of 19.5, elevated specific gravity, hypomag. He was awaiting admission to hospital he was noted to have a quick escalation of temperature, rigors and went unresponsive with sonorous respirations. For this he was urgently intubated. This also prompted completion of LP. He was initiated on abx therapy- to include Rocephin, vanc, acyclovir, and ampicillin. ICU was consulted for admission. Will add on Tularemia coverage, await further CSF virolgy and cultures to include rickettsial studies. CODE: FULL Allergies Allergy/AdvReac Type Severity Reaction Status Date / Time No Known Allergies Allergy Unverified 09/12/14 09:34 Home Medications Medication Instructions Recorded Confirmed Type allopurinol 300 mg tablet 300 mg PO DAILY ##30 09/10/14 03/09/24 History hydrochlorothiazide 25 mg tablet 25 mg PO DAILY ##30 09/10/14 03/09/24 History losartan 100 mg tablet 100 mg PO DAILY ##30 09/10/14 03/09/24 History omeprazole 20 mg capsule,delayed 20 mg PO DAILY ##30 09/10/14 03/09/24 History release amlodipine 10 mg tablet 10 mg PO DAILY 03/09/24 03/09/24 History aspirin 325 mg tablet 325 mg PO DAILY 03/09/24 03/09/24 History colchicine 0.6 mg tablet 0.6 mg PO TID 03/09/24 03/09/24 History empagliflozin 25 mg tablet 25 mg PO DAILY 03/09/24 03/09/24 History (Jardiance) glipizide 10 mg tablet, extended 10 mg PO BID 03/09/24 03/09/24 History release 24 hr ibuprofen 800 mg tablet 800 mg PO Q8H PRN Pain 03/09/24 03/09/24 History insulin degludec 200 unit/mL (3 26 unit subcut AMPM 03/09/24 03/09/24 History mL) subcutaneous pen (Tresiba FlexTouch U-200 insulin) multivitamin 1 tab PO DAILY 03/09/24 03/09/24 History potassium 75 mg tablet 75 mg PO DAILY 03/09/24 03/09/24 History semaglutide 0.25 mg or 0.5 mg (2 0.25 mg subcut UD 03/09/24 03/09/24 History mg/3 mL) subcutaneous pen injector (Ozempic) tamsulosin 0.4 mg capsule 0.4 mg PO DAILY 03/09/24 03/09/24 History vitamin B complex 1 tab PO DAILY 03/09/24 03/09/24 History vitamin E 400 unit tablet 45 mg PO DAILY 03/09/24 03/09/24 History Patient History Medical History HTN (hypertension) Encounter for removal of nasal packing DM (diabetes mellitus) HTN (hypertension) Epistaxis Surgical History History of tonsillectomy H/O sinus surgery Family History Other Heart disease Lung cancer Social History Smoking Status: Unknown if ever smoked Hx Alcohol Use: No Hx Substance Use: No Preferred Language: Romanian Communication Ability: intubated Electronic Security Technician Required: No Beliefs That Will Affect Care: None Current Living Situation: Spouse Other Information That Helps Us Care for You: No Feels Safe at Home: Yes Safety Concerns: Feels Safe At This Time Assistive Devices Comment: reading glasses Review of Systems Review of Systems: unable to complete secondary to intubation and sedation Physical Exam Physical Exam: PHYSICAL EXAM: General: intubated and sedated Head: Normocephalic, atraumatic ENT: PERRLA 3/2 brisk, no sinus drainage, pharyngeal space limited view secondary to ett Neuro: intubated and sedated, moving all extremities, localizes pain, overbreathing ventilator Chest: equal rise and fall of the chest, no accessory muscle use, no heaves or thrills, decreased in bases Cardiac: Regular rate and rhythm, telemetry reviewed- sinus tachycardia no ectopy, skin warm dry, cap refill <3 seconds, peripheral pulses, +2 no JVD, no murmur, no edema GI: NABS x 4 quadrants, soft, nontender to palpation, no rebound, guarding or tenderness : Vera to gravity Skin: no rash or erythema Results & Data Results & Data Vital Signs (Past 12 Hours) Vital Signs Temp Pulse Pulse Resp BP BP Pulse Ox 03/09/24 18:30 38.7 C H 110 H 24 97 03/09/24 18:30 135/73 03/09/24 18:15 117/64 03/09/24 18:15 38.9 C H 112 H 24 97 03/09/24 18:00 39.2 C H 114 H 26 H 97 03/09/24 18:00 129/66 03/09/24 17:55 39.2 C H 115 H 25 H 97 03/09/24 17:52 39.2 C H 116 H 23 97 03/09/24 17:52 142/76 H 03/09/24 17:50 39.3 C H 121 H 30 H 97 03/09/24 17:45 39.3 C H 117 H 28 H 94 03/09/24 17:42 39.3 C H 112 H 25 H 96 03/09/24 17:42 111/60 03/09/24 17:40 39.3 C H 113 H 23 95 03/09/24 17:35 39.4 C H 112 H 23 95 03/09/24 17:30 39.4 C H 113 H 24 03/09/24 17:27 138/92 03/09/24 17:27 39.4 C H 115 H 17 03/09/24 17:25 39.4 C H 114 H 20 95 03/09/24 17:20 39.4 C H 122 H 21 95 03/09/24 17:15 39.5 C H 121 H 27 H 94 03/09/24 17:15 170/90 H 03/09/24 17:11 127 H 18 97 03/09/24 17:10 39.5 C H 118 H 22 03/09/24 17:10 171/87 H 03/09/24 17:05 39.5 C H 119 H 20 94 03/09/24 17:05 39.5 C H 119 H 20 94 03/09/24 17:05 178/83 H 03/09/24 17:00 188/88 H 03/09/24 17:00 39.6 C H 119 H 19 93 03/09/24 16:57 206/98 H 03/09/24 16:57 39.6 C H 119 H 19 92 03/09/24 16:55 121 H 18 90 03/09/24 16:54 122 H 18 92 03/09/24 16:40 192/99 H 03/09/24 16:40 39.9 C H 119 H 18 93 03/09/24 16:38 40.0 C H 124 H 18 93 03/09/24 16:38 192/99 H 03/09/24 16:37 40.0 C H 122 H 18 93 03/09/24 16:30 40.2 C H 128 H 19 93 03/09/24 16:30 195/101 H 03/09/24 16:25 40.3 C H 129 H 18 94 03/09/24 16:25 183/147 H 03/09/24 16:20 40.3 C H 125 H 19 97 03/09/24 16:20 172/89 H 03/09/24 16:15 171/89 H 03/09/24 16:15 40.3 C H 132 H 20 96 03/09/24 16:10 40.2 C H 132 H 88 L 03/09/24 16:10 197/115 H 03/09/24 16:06 40.1 C H 125 H 93 03/09/24 16:06 145/78 H 03/09/24 16:05 39.9 C H 125 H 93 03/09/24 16:01 90 03/09/24 15:55 123 H 32 H 88 L 03/09/24 15:50 122 H 24 92 03/09/24 15:45 125 H 28 H 93 03/09/24 15:45 122 H 03/09/24 15:40 123 H 21 93 03/09/24 15:35 123 H 26 H 94 03/09/24 15:31 123 H 31 H 95 03/09/24 15:31 143/87 H 03/09/24 15:30 36.7 C 03/09/24 15:30 123 H 33 H 95 03/09/24 15:17 127 H 30 H 100 03/09/24 15:17 136/95 03/09/24 14:40 111 H 25 H 121/84 98 03/09/24 13:00 110 H 22 120/90 92 03/09/24 12:30 110 H 22 135/87 93 03/09/24 12:21 110 H 25 H 135/87 95 03/09/24 11:38 115 H 03/09/24 11:26 38.1 C H 116 H 18 131/80 92 03/09/24 11:26 116 H 18 92 03/09/24 11:26 38.1 C H 116 H 18 131/80 92 03/09/24 11:20 84 L O2 Del Method O2 Flow Rate FiO2 03/09/24 18:30 03/09/24 18:30 03/09/24 18:15 03/09/24 18:15 03/09/24 18:00 03/09/24 18:00 03/09/24 17:55 03/09/24 17:52 03/09/24 17:52 03/09/24 17:50 03/09/24 17:45 03/09/24 17:42 03/09/24 17:42 03/09/24 17:40 03/09/24 17:35 03/09/24 17:30 03/09/24 17:27 03/09/24 17:27 03/09/24 17:25 03/09/24 17:20 03/09/24 17:15 03/09/24 17:15 03/09/24 17:11 100 03/09/24 17:10 03/09/24 17:10 03/09/24 17:05 03/09/24 17:05 03/09/24 17:05 03/09/24 17:00 03/09/24 17:00 03/09/24 16:57 03/09/24 16:57 03/09/24 16:55 03/09/24 16:54 03/09/24 16:40 03/09/24 16:40 03/09/24 16:38 03/09/24 16:38 03/09/24 16:37 03/09/24 16:30 03/09/24 16:30 03/09/24 16:25 03/09/24 16:25 03/09/24 16:20 03/09/24 16:20 03/09/24 16:15 03/09/24 16:15 Mechanical Vent 03/09/24 16:10 Mechanical Vent 03/09/24 16:10 03/09/24 16:06 03/09/24 16:06 03/09/24 16:05 03/09/24 16:01 Non-rebreather 15 03/09/24 15:55 Oxymask 6 03/09/24 15:50 03/09/24 15:45 03/09/24 15:45 03/09/24 15:40 03/09/24 15:35 03/09/24 15:31 03/09/24 15:31 03/09/24 15:30 03/09/24 15:30 03/09/24 15:17 03/09/24 15:17 03/09/24 14:40 Nasal Cannula 4 03/09/24 13:00 Nasal Cannula 4 03/09/24 12:30 Nasal Cannula 4 03/09/24 12:21 Nasal Cannula 4 03/09/24 11:38 03/09/24 11:26 Nasal Cannula 4 03/09/24 11:26 Nasal Cannula 4 03/09/24 11:26 Nasal Cannula 4 03/09/24 11:20 Nasal Cannula 0 Laboratory Results Abnormal lab results 03/09/24 03/09/24 03/09/24 Range/Units 11:26 13:58 15:50 WBC 19.50 H (4.8-10.8) K/ul Neut # (Auto) 16.40 H (1.40-6.50) K/uL Lymph # (Auto) 0.73 L (1.20-3.40) K/uL Mcnairy # (Auto) 1.26 H (0.11-0.59) K/uL Immature Gran # (Auto) 0.92 H (0.01-0.20) K/uL VBG pH 7.45 H (7.36-7.41) Sodium 132 L (136-145) mmol/L Potassium 3.3 L (3.5-5.1) mmol/L Glucose 207 H (70-99(Fasting)) mg/dl POC Glucose 220 H (70-99) mg/dl Lactate 2.1 H* (0.4-2.0) mmol/L Magnesium 1.5 L (1.7-2.4) mg/dl Ur Specific Kenyon > 1.045 H (1.000-1.030) Urine Protein 1+ H (Negative) Urine Glucose (UA) 3+ H (Negative) CSF WBC (0-5) CSF Glucose (40-70) mg/dl CSF Total Protein (15-45) mg/dl 03/09/24 03/09/24 Range/Units 17:45 19:38 WBC (4.8-10.8) K/ul Neut # (Auto) (1.40-6.50) K/uL Lymph # (Auto) (1.20-3.40) K/uL Mcnairy # (Auto) (0.11-0.59) K/uL Immature Gran # (Auto) (0.01-0.20) K/uL VBG pH (7.36-7.41) Sodium (136-145) mmol/L Potassium (3.5-5.1) mmol/L Glucose (70-99(Fasting)) mg/dl POC Glucose 155 H (70-99) mg/dl Lactate (0.4-2.0) mmol/L Magnesium (1.7-2.4) mg/dl Ur Specific Kenyon (1.000-1.030) Urine Protein (Negative) Urine Glucose (UA) (Negative) CSF WBC 6 H (0-5) CSF Glucose 107 H (40-70) mg/dl CSF Total Protein 111.8 H (15-45) mg/dl Diagnostic Findings Chest X-Ray 03/09/24 11:16 SINGLE VIEW CHEST CLINICAL HISTORY: Sepsis. FINDINGS: 2 AP, portable, upright chest radiographs are obtained. No prior studies are available for comparison at the time of dictation. The examination is degraded by portable technique, apical lordotic positioning, and patient rotation. The heart is enlarged noting atherosclerotic calcification of the thoracic aorta. The pulmonary vasculature is noncongested. There is bibasilar scarring/atelectasis. The lungs and pleural spaces are otherwise clear. No pneumothorax is seen. The skeletal structures are osteopenic. The bony thorax is grossly intact. IMPRESSION: Cardiomegaly with no acute cardiopulmonary abnormality identified. ACT 112: Negative or not required by law. Electronically signed by: Jaspreet Jean M.D. 03/09/2024 11:50 AM Chest CTA 03/09/24 12:30 CT ANGIOGRAM OF THE CHEST CLINICAL HISTORY: Dyspnea. Hypoxia. COMPARISON STUDY: Chest x-ray dated 03/09/2024. TECHNIQUE: Following the IV administration of 118 cc of Optiray 320, CT angiogram of the chest was performed from the upper abdomen to the thoracic inlet utilizing the pulmonary embolus protocol. Images are reviewed in the axial, sagittal, and coronal planes. 3-D MIPS images are created and assessed. IV contrast was administered without complication. A dose lowering technique was utilized adhering to the principles of ALARA. CT DOSE: 933.46 mGy.cm FINDINGS: Thyroid: Imaged portions of the thyroid gland are normal in size and attenuation. Thoracic aorta: There is mild atherosclerotic calcification of the thoracic aorta, which is normal in caliber and demonstrates standard 3-vessel arch anatomy. No dissection is seen. Pulmonary vasculature: The pulmonary trunk is normal in caliber. There are no filling defects identified in main, lobar, or segmental pulmonary branches to suggest pulmonary embolus. Heart: The heart is enlarged and without pericardial effusion. The coronary arteries are densely calcified. Lungs and pleural spaces: Evaluation of the lung parenchyma is degraded by motion artifact. There is no airspace consolidation or pleural effusion. Dependent scarring/atelectasis is noted at both lung bases. The trachea and central airways are clear. Mediastinum: There is no mediastinal lymphadenopathy. Gretel: Clear. Axillae: There is no axillary lymphadenopathy. Upper abdomen: There are calcified gallstones with no CT evidence of acute cholecystitis. The liver is steatotic. The spleen is enlarged measuring 15.3 cm in length. A small hiatal hernia is noted. Skeletal structures: No lytic or blastic bony lesions are seen. Degenerative change is noted in the shoulders and spine. IMPRESSION: 1. There is no evidence of pulmonary embolus in the main, lobar, or segmental pulmonary arteries. 2. Cardiomegaly noting advanced coronary artery atherosclerosis. 3. No airspace consolidation or pleural effusion is identified. 4. Cholelithiasis. 5. Hepatic steatosis and splenomegaly. 6. Additional findings as above. ACT 112: Negative or not required by law. Electronically signed by: Jaspreet Jean M.D. 03/09/2024 1:[address] 03/09/24 15:36 CT SCAN OF THE BRAIN WITHOUT IV CONTRAST CLINICAL HISTORY: Change in mental status. COMPARISON STUDY: No priors. TECHNIQUE: Unenhanced axial CT scan of the brain is performed from the vertex to the skull base. A dose lowering technique was utilized adhering to the prin ciples of ALARA. The examination is degraded by the presence of residual IV contrast throughout the intracranial circulation. CT DOSE: 1012.93 mGy.cm FINDINGS: Brain parenchyma: There is age-related involutional change noting mild subcortical and periventricular microangiopathic disease. There is no hemorrhage, mass effect, or evidence of acute territorial ischemia by CT criteria. Young-white matter differentiation is preserved. No extra-axial fluid collection is seen. Ventricles, sulci, cisterns: Prominent secondary to involutional change. Intracranial vasculature: There is atherosclerotic calcification of the cavernous carotid and vertebral arteries. Calvarium: Unremarkable. Sinuses and mastoids: A 12 mm retention cyst is noted in the right maxillary antrum. Trace mucosal thickening is seen in the left maxillary sinus. The remaining paranasal sinuses are clear. The mastoid air cells are well pneumatized. Orbits: The bony orbits are grossly intact. IMPRESSION: There is no hemorrhage, mass effect, or evidence of acute territorial ischemia by CT criteria. ACT 112: Negative or not required by law. Electronically signed by: Jaspreet Jean M.D. 03/09/2024 5:31 PM Chest X-Ray 03/09/24 15:55 SINGLE VIEW CHEST CLINICAL HISTORY: Dyspnea. FINDINGS: An AP, portable, semi-erect chest radiograph is compared to chest x- ray and chest CT performed earlier the same day 03/09/2024. The examination is degraded by portable technique and patient rotation. An endotracheal tube has been placed. The tip projects approximately 4 cm above the kat. The heart is enlarged noting atherosclerotic calcification of the thoracic aorta. There is pulmonary vascular congestion. There is bibasilar scarring/atelectasis. No airspace consolidation, large pleural effusion, or pneumothorax is seen. The skeletal structures are osteopenic. The bony thorax is grossly intact. IMPRESSION: 1. An endotracheal tube has been placed as above. 2. Cardiomegaly. Pulmonary vascular congestion is new from today's earlier examinations. ACT 112: Negative or not required by law. Electronically signed by: Jaspreet Jean M.D. 03/09/2024 4:40 PM Coding Level of Care Code 80055 CRITICAL CARE 1ST 30-74M Diagnoses Encephalopathy G93.40 HTN (hypertension) I10 DM (diabetes mellitus) E11.9 Acute hypoxemic respiratory failure J96.01 Hypomagnesemia E83.42 Sepsis A41.9
[2024-03-09] MEDS: VECURONIUM BROMIDE 10 MG VIAL IV STA (19:16)
[2024-03-09] MEDS: VECURONIUM BROMIDE 10 MG VIAL IV ONE (19:17)
[2024-03-09] MEDS ORDERED: ACETAMINOPHEN 325 MG TAB PO PRN (19:40)
[2024-03-09] MEDS ORDERED: POLYETHYLENE (MIRALAX) 17 GM PACK PO PRN (19:40)
[2024-03-09] MEDS ORDERED: AMPICILLIN 2,000 MG in SODIUM CHLORIDE 0.9% 50 ML IV SCH (19:40)
[2024-03-09] MEDS: DEXTROSE 5% IV SCH (19:43)
[2024-03-09] MEDS: ACYCLOVIR SOD IV SCH (19:43)
[2024-03-09] MEDS: cefTRIAXone SODIUM 2,000 MG in DEXTROSE 5 % MINI-B 50 ML IV SCH (19:44)
[2024-03-09] MEDS ORDERED: DEXAMETHASONE SOD INJ 4 MG/ML VIAL IV STA (19:58)
[2024-03-09 20:03] LABS: Amphetamines+Metham, Urine Neg (Neg); Barbiturates, Urine Neg (Neg); Benzodiazepine, Urine Neg (Neg); Cocaine, Urine Neg (Neg); MDMA (Ecstacy), Urine Neg (Neg); Marijuana, Urine Neg (Neg); Methadone, Urine Neg (Neg); Opiate, Urine Neg (Neg); Phencyclidine, Urine Neg (Neg)
[2024-03-09] MEDS: MAGNESIUM SULFATE / D5W 1 GM/100 ML BAG IV SCH (20:37)
[2024-03-09] MEDS: PLASMA-LYTE A 1,000 ML IV SCH (20:37)
[2024-03-09] MEDS ORDERED: GLUCOSE 10 TAB/TUBE PO PRN (21:09)
[2024-03-09] MEDS ORDERED: GLUCOSE 40% GEL 15 GM TUBE PO PRN (21:09)
[2024-03-09] MEDS ORDERED: GLUCAGON FOR INJ 1 MG VIAL SQ PRN (21:09)
[2024-03-09] MEDS ORDERED: CARBOHYDRATES FOR HYPOGLYCEMIA PO PRN (21:09)
[2024-03-09] MEDS ORDERED: DEXTROSE 50% 50 ML SYRINGE IV PRN (21:09)
[2024-03-09] MEDS ORDERED: PHARMACY GLYCEMIC MGMT CONSULT PRN (21:09)
[2024-03-09] MEDS: DOXYCYCLINE HYCLATE 100 MG in DEXTROSE 5% MINI-B 100 ML IV STA (21:12)
[2024-03-09] MEDS: ICU Protocol for HYPERglycemia SCH (21:13)
[2024-03-09] MEDS: dexAMETHasone 10 MG in SYRINGE 0 ML IV ONE (21:13)
[2024-03-09] MEDS: AMPICILLIN 2,000 MG in SODIUM CHLOR 0.9% MINI-B 100 ML IV SCH (21:13)
[2024-03-09] MEDS: PIPERACILLIN/TAZOBACTAM 4.5 GM in DEXTROSE 5% MINI-B 100 ML IV SCH (21:42)
[2024-03-09] MEDS: IBUPROFEN 200 MG/10 ML UDC PO STA (21:45)
--- NOTE | 2024-03-09 21:53 | XRay Report ---
BONY ORBITS 3 VIEWS CLINICAL HISTORY: MRI clearance. FINDINGS: 3 views of the bony orbits are obtained. Correlation is made with CT of the brain dated 02/22. There is no radiodense/metallic foreign body seen in the region of the bony orbits. Indetermi nant metallic foreign bodies/clips project over the left nasopharynx. The bony orbits are intact as i drew. The visualized paranasal sinuses and the mastoid air cells appear clear. The imaged calvarium appears intact. Endotracheal and enteric tubes are in place. IMPRESSION: Indeterminate metallic foreign bodies/clips project over the left nasopharynx. Correlate clinically. ACT 112: Negative or not required by law. Electronically signed by: Jaspreet Jean M.D. 03/09/2024 9:51 PM
--- NOTE | 2024-03-09 21:55 | XRay Report ---
KUB CLINICAL HISTORY: MRI clearance. FINDINGS: 3 AP, portable, supine abdominal radiographs are obtained. No prior studies are available f or comparison at the time of dictation. There is a nonobstructed abdominal bowel gas pattern. No evid ence of intraperitoneal free air is seen on these supine images. An enteric tube tube projects below the diaphragm with the tip overlying the mid to distal stomach. A rectal temperature probe is in plac e. No additional radiodense/metallic foreign body is seen. Gallstones are seen in the right upper ishan drant. Phleboliths are noted in the pelvis. The skeletal structures are osteopenic and appear intact. Lumbosacral spondylosis is observed. The heart is enlarged and small pleural effusions are noted. IMPRESSION: 1. No acute abnormality is identified. 2. An enteric tube and a rectal temperature probe are in place. 3. Cholelithiasis. 4. No radiodense/metallic foreign body is seen. Electronically signed by: Jaspreet Jean M.D. 03/09/2024 9:54 PM
[2024-03-09] MEDS: INSULIN ASPART PER UNIT CHARGE SC SCH (21:56)
[2024-03-09] MEDS: LANTUS PER UNIT CHARGE SC ONE (21:56)
--- NOTE | 2024-03-09 21:57 | XRay Report ---
KUB CLINICAL HISTORY: Enteric tube placement. FINDINGS: An AP, portable, supine view of the lower chest and upper abdomen is obtained. No prior jania dies are available for comparison at the time of dictation. There is a nonobstructed abdominal bowel gas pattern. No evidence of intraperitoneal free air is seen on this supine image. An enteric tube tu be projects below the diaphragm with the tip overlying the mid to distal stomach. Gallstones are seen in the right upper quadrant. The skeletal structures are osteopenic and appear intact. The heart is enlarged and small pleural effusions are noted. IMPRESSION: 1. An enteric tube has been placed as above. 2. No bowel obstruction is seen. 3. Cholelithiasis. Electronically signed by: Jaspreet Jean M.D. 03/09/2024 9:56 PM
[2024-03-09] MEDS ORDERED: HEPARIN SOD 5,000 UNIT/0.5 ML VIAL SQ SCH (22:00)
[2024-03-09 23:13] LABS: A calco-baum cmplx NotReported Not Detected (NotDetected); Bact fragilis Not Reported Not Detected (NotDetected); Blood Culture Id Panel See PCR Comment (NotDetected); C auris Not Reported Not Detected (NotDetected); Calbicans Not Reported Not Detected (NotDetected); Candida glabrata Not Reported Not Detected (NotDetected); Candida krusei Not Reported Not Detected (NotDetected); Cneoformans/gatti Not Reported Not Detected (NotDetected); Cparapsilosis Not Reported Not Detected (NotDetected); E cloacae compx Not Reported Not Detected (NotDetected); Efaecalis Not Reported Not Detected (NotDetected); Efaecium Not Reported Not Detected (NotDetected); Enterobacterales Not Reported Not Detected (NotDetected); Escherichia coli Not Reported Not Detected (NotDetected); H influenzae Not Reported Not Detected (NotDetected); K aerogenes Not Reported Not Detected (NotDetected); Koxytoca Not Reported Not Detected (NotDetected); Kpneumoniae grp Not Reported Not Detected (NotDetected); Lmonocyt Not Reported Not Detected (NotDetected); N meningitidis Not Reported Not Detected (NotDetected); P aeruginosa Not Reported Not Detected (NotDetected); Proteus spp Not Reported Not Detected (NotDetected); Salmonella spp Not Reported Not Detected (NotDetected); Smarcescens Not Reported Not Detected (NotDetected); Staph lugdunensis Not Reported Not Detected (NotDetected); Staph spp. Not Reported Not Detected (NotDetected); Staphaureus Not Reported Not Detected (NotDetected); Staphepi Not Reported Not Detected (NotDetected); Stenmaltophilia Not Reported Not Detected (NotDetected); Strep agal(GrpB) Not Reported Not Detected (NotDetected); Strep pneum Not Reported Not Detected (NotDetected); Strep pyog (GrpA) Not Reported DETECTED (NotDetected); Strep spp Not Reported DETECTED (NotDetected); Streptococcus spp DETECTED (NotDetected)
[2024-03-09 23:31] LABS: Streptococcus pyogenes (GrpA) DETECTED (NotDetected)
[2024-03-09] MEDS: STAT IV Infusion **Titration per Protocol STA (23:53)
[2024-03-10] MEDS: ACETAMINOPHEN 1,000 MG/100 ML VIAL IV SCH (00:05)
[2024-03-10] MEDS: INSULIN ASPART PER UNIT CHARGE SC SCH (00:07)
[2024-03-10] MEDS: VANCOMYCIN HCL 1,250 MG in SODIUM CHLORIDE 0.9% 250 ML IV SCH (03:45)
[2024-03-10 04:57] LABS: Hematocrit (blood only) 42.3 % (42.0-52.0); Hemoglobin 14.4 g/dl (14.0-18.0); Mean Corpuscular Hemoglobin 28.7 pg (25.0-34.0); Mean Corpuscular Volume 84.4 fL (80.0-100.0); Mean Platelet Volume 9.9 fL (9.4-12.4); Platelet Count 217 K/uL (130-400); RDW Coefficient of Variation 14.6 % (11.5-14.5); RDW Standard Deviation 44.7 fL (36.4-46.3); Red Blood Count 5.01 M/uL (4.70-6.10); White Blood Count 20.31 K/ul (4.8-10.8)
[2024-03-10] MEDS: PROPOFOL BOLUS FROM BAG IV PRN (05:23)
[2024-03-10] MEDS: fentaNYL BOLUS from BAG IV PRN (05:23)
[2024-03-10 05:40] LABS: Albumin Globulin Ratio 1.3 (0.9-2); Albumin Level 3.3 gm/dl (3.4-5.0); BUN Creatinine Ratio 23.7 (10-20); Bilirubin,Total 1.2 mg/dl (0.2-1.0); Calcium 7.9 mg/dl (8.6-10.3); Est GFR (African American) 96.1 ml/min; Est GFR (Non-African American) 82.9 ml/min; Globulin 2.5 gm/dl (2.5-4.0); Potassium 3.8 mmol/L (3.5-5.1); Total Protein 5.8 gm/dl (6.0-8.3)
--- NOTE | 2024-03-10 07:53 | Critical Care Progress Note ---
Date of Service March 10, 2024 Assessment & Plan (1) Encephalopathy: (2) HTN (hypertension): (3) DM (diabetes mellitus): (4) Acute hypoxemic respiratory failure: (5) Hypomagnesemia: (6) Sepsis: Plan Reason Critically Ill: 68 YOM presents with concern of increasing fatigue and weakness- followed by fever, rigors and unresponsiveness. 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 Concern for DESIGN ASSISTANT infection is at top of differential at this time. 24-hour events: Patient presented to the emergency room. He was intubated. LP was performed demonstrating pleocytosis. Antibiotics for possible meningitis were initiated. He been hemodynamically stable. Overnight his blood cultures were positive for strep pyogenes. He is been afebrile. This morning his sensorium is cleared. He was placed on minimal vent settings and has been extubated. His sensorium is clearing. Recommendations: Neuro -encephalopathy likely secondary to bacteremia but LP did show pleocytosis with negative bio fire PCR analysis. Multiple other studies pending. Suspect his encephalopathy was related to his bacteremia. Will continue to follow at this point in time. No indication for MRI scanning at this point time and that will be canceled. Cardiac -history of hypertension in the outpatient setting on amlodipine. Will hold for now. Holding losartan as well. Lactate now cleared. Respiratory -intubated due to concern about ability to protect airway. Extubated this morning. Continue pulmonary toilet. GI -now extubated. Will see if he can pass a bedside swallow study and advance diet as tolerated. RENAL/LYTES -no acute issues. Hyponatremia correcting. Will place on ICU electrolyte replacement protocol. - Vera to gravity. Can likely discontinue once the patient is up and about ENDO - glycemic control per protocol. Holding Ozempic Jardiance and glipizide. HEME -leukocytosis secondary to infection. Continue DVT prophylaxis ID strep pyogenes bacteremia. Does not have clinical manifestations for toxic shock syndrome. Do not think clindamycin or other adjuvants are required. Could de-escalate to Rocephin and ampicillin, ID consultation requested. Bacteremia could certainly account for his encephalopathy however given his elevated protein level and pleocytosis on CSF, will await ID input before tapering antibiotics additionally. LINES/IV ACCESS - PIV, Vera, ETT, OGT Continue use of these lines DVT PROPHYLAXIS - Heparin 5000 units sub q TID DISPO: ICU while intubated and sedated I have personally spent 55 minutes of critical care time in the direct management of this patient. This is a life/limb threatening event. This includes time spent evaluating patient, direct bedside care, chart review, placing orders, interpretation of diagnostic studies, discussion with consultants, patient, and family members, as well as other required patient management activities. This time is exclusive of all separately billable procedures, and teaching time and separate from and in addition to any other critical care service time. Thank you for allowing us to participate in the care of this patient. Will follow in ICU today but if the patient continues to improve, consideration for downgrade in the next 24 hours would be appropriate Admission and Anticipated Discharge Date Admission Date: March 09, 2024 Subjective Patient seen and examined. EMR reviewed. Patient's discussed with bedside critical care nurse and on multidisciplinary rounds. Patient remains intubated and sedated. This morning he is awake enough to be able to follow commands. He is breathing spontaneously. He is hemodynamically stable. Review of Systems Review of Systems: Unobtainable due to endotracheal tube Physical Exam Constitutional: WD/WN, vitals as above + mechanically ventilated Neck: trachea midline, no thyromegaly Respiratory: normal respiratory effort, lungs clear to auscultation Cardiovascular: RRR, no murmur, no edema Gastrointestinal (Abdomen): normal bowel sounds, soft, nontender, no hepatosplenomegaly Musculoskeletal: Extremities: extremities normal to inspection Skin: no rashes, warm and dry Neurologic: Sedated on the ventilator Lymphatic: no cervical lymphadenopathy Results & Data Results & Data Vital Signs (Past 12 Hours) Vital Signs Temp Pulse Pulse Resp BP BP Pulse Ox 03/10/24 07:05 80 18 92 03/10/24 06:30 35.6 C L 79 8 L 90 03/10/24 06:30 121/75 03/10/24 06:00 35.5 C L 82 90 03/10/24 06:00 124/78 03/10/24 06:00 124/78 03/10/24 05:30 123/75 03/10/24 05:30 35.4 C L 81 18 88 L 03/10/24 05:00 35.5 C L 81 19 89 L 03/10/24 05:00 128/76 03/10/24 04:30 35.6 C L 80 20 90 03/10/24 04:30 124/75 03/10/24 04:00 35.7 C L 73 93 03/10/24 04:00 126/75 03/10/24 04:00 03/10/24 03:30 117/71 03/10/24 03:30 117/71 03/10/24 03:30 35.8 C L 76 19 92 03/10/24 03:00 118/72 03/10/24 03:00 35.9 C L 74 93 03/10/24 02:30 36.0 C L 76 92 03/10/24 02:30 118/70 03/10/24 02:00 111/72 03/10/24 02:00 36.2 C L 77 20 03/10/24 01:30 117/73 03/10/24 01:30 36.4 C L 80 18 92 03/10/24 01:00 110/72 03/10/24 01:00 36.8 C 83 19 03/10/24 00:34 91 H 03/10/24 00:30 123/78 03/10/24 00:30 37.2 C 89 19 88 L 03/10/24 00:00 122/78 03/10/24 00:00 37.9 C H 92 H 17 91 03/10/24 00:00 03/09/24 23:30 38.5 C H 100 H 19 90 03/09/24 23:30 131/77 03/09/24 23:30 131/77 03/09/24 23:00 39.4 C H 109 H 20 90 03/09/24 23:00 131/79 03/09/24 23:00 131/79 03/09/24 22:30 39.9 C H 115 H 22 90 03/09/24 22:30 137/78 03/09/24 22:00 39.8 C H 115 H 93 03/09/24 22:00 136/80 03/09/24 21:30 143/77 H 03/09/24 21:30 39.6 C H 112 H 19 91 03/09/24 21:00 39.7 C H 120 H 24 91 03/09/24 21:00 134/77 03/09/24 21:00 134/77 03/09/24 20:30 39.8 C H 119 H 7 L 92 03/09/24 20:30 155/84 H 03/09/24 20:30 155/84 H 03/09/24 20:30 03/09/24 20:21 03/09/24 20:14 100 H 19 92 03/09/24 20:08 39.5 C H 115 H 19 155/86 H 92 03/09/24 20:07 39.7 C H 117 H 20 93 03/09/24 20:07 155/86 H 03/09/24 20:00 39.6 C H 116 H 20 93 O2 Del Method FiO2 03/10/24 07:05 60 03/10/24 06:30 03/10/24 06:30 03/10/24 06:00 03/10/24 06:00 03/10/24 06:00 03/10/24 05:30 03/10/24 05:30 03/10/24 05:00 03/10/24 05:00 03/10/24 04:30 03/10/24 04:30 03/10/24 04:00 03/10/24 04:00 03/10/24 04:00 65 03/10/24 03:30 03/10/24 03:30 03/10/24 03:30 03/10/24 03:00 03/10/24 03:00 03/10/24 02:30 03/10/24 02:30 03/10/24 02:00 03/10/24 02:00 03/10/24 01:30 03/10/24 01:30 03/10/24 01:00 03/10/24 01:00 03/10/24 00:34 03/10/24 00:30 03/10/24 00:30 03/10/24 00:00 03/10/24 00:00 03/10/24 00:00 60 03/09/24 23:30 03/09/24 23:30 03/09/24 23:30 03/09/24 23:00 03/09/24 23:00 03/09/24 23:00 03/09/24 22:30 03/09/24 22:30 03/09/24 22:00 03/09/24 22:00 03/09/24 21:30 03/09/24 21:30 03/09/24 21:00 03/09/24 21:00 03/09/24 21:00 03/09/24 20:30 03/09/24 20:30 03/09/24 20:30 03/09/24 20:30 55 03/09/24 20:21 Mechanical Vent 55 03/09/24 20:14 65 03/09/24 20:08 Mechanical Vent 03/09/24 20:07 03/09/24 20:07 03/09/24 20:00 Critical Care Results & Data Vital Signs (Past 12 Hours) Vital Signs Temp Pulse Pulse Resp BP BP Pulse Ox 03/10/24 07:05 80 18 92 03/10/24 06:30 35.6 C L 79 8 L 90 03/10/24 06:30 121/75 03/10/24 06:00 35.5 C L 82 90 03/10/24 06:00 124/78 03/10/24 06:00 124/78 03/10/24 05:30 123/75 03/10/24 05:30 35.4 C L 81 18 88 L 03/10/24 05:00 35.5 C L 81 19 89 L 03/10/24 05:00 128/76 03/10/24 04:30 35.6 C L 80 20 90 03/10/24 04:30 124/75 03/10/24 04:00 35.7 C L 73 93 03/10/24 04:00 126/75 03/10/24 04:00 03/10/24 03:30 117/71 03/10/24 03:30 117/71 03/10/24 03:30 35.8 C L 76 19 92 03/10/24 03:00 118/72 03/10/24 03:00 35.9 C L 74 93 03/10/24 02:30 36.0 C L 76 92 03/10/24 02:30 118/70 03/10/24 02:00 111/72 03/10/24 02:00 36.2 C L 77 20 03/10/24 01:30 117/73 03/10/24 01:30 36.4 C L 80 18 92 03/10/24 01:00 110/72 03/10/24 01:00 36.8 C 83 19 03/10/24 00:34 91 H 03/10/24 00:30 123/78 03/10/24 00:30 37.2 C 89 19 88 L 03/10/24 00:00 122/78 03/10/24 00:00 37.9 C H 92 H 17 91 03/10/24 00:00 03/09/24 23:30 38.5 C H 100 H 19 90 03/09/24 23:30 131/77 03/09/24 23:30 131/77 03/09/24 23:00 39.4 C H 109 H 20 90 03/09/24 23:00 131/79 03/09/24 23:00 131/79 03/09/24 22:30 39.9 C H 115 H 22 90 03/09/24 22:30 137/78 03/09/24 22:00 39.8 C H 115 H 93 03/09/24 22:00 136/80 03/09/24 21:30 143/77 H 03/09/24 21:30 39.6 C H 112 H 19 91 03/09/24 21:00 39.7 C H 120 H 24 91 03/09/24 21:00 134/77 03/09/24 21:00 134/77 03/09/24 20:30 39.8 C H 119 H 7 L 92 03/09/24 20:30 155/84 H 03/09/24 20:30 155/84 H 03/09/24 20:30 03/09/24 20:21 03/09/24 20:14 100 H 19 92 03/09/24 20:08 39.5 C H 115 H 19 155/86 H 92 03/09/24 20:07 39.7 C H 117 H 20 93 03/09/24 20:07 155/86 H 03/09/24 20:00 39.6 C H 116 H 20 93 O2 Del Method FiO2 03/10/24 07:05 60 03/10/24 06:30 03/10/24 06:30 03/10/24 06:00 03/10/24 06:00 03/10/24 06:00 03/10/24 05:30 03/10/24 05:30 03/10/24 05:00 03/10/24 05:00 03/10/24 04:30 03/10/24 04:30 03/10/24 04:00 03/10/24 04:00 03/10/24 04:00 65 03/10/24 03:30 03/10/24 03:30 03/10/24 03:30 03/10/24 03:00 03/10/24 03:00 03/10/24 02:30 03/10/24 02:30 03/10/24 02:00 03/10/24 02:00 03/10/24 01:30 03/10/24 01:30 03/10/24 01:00 03/10/24 01:00 03/10/24 00:34 03/10/24 00:30 03/10/24 00:30 03/10/24 00:00 03/10/24 00:00 03/10/24 00:00 60 03/09/24 23:30 03/09/24 23:30 03/09/24 23:30 03/09/24 23:00 03/09/24 23:00 03/09/24 23:00 03/09/24 22:30 03/09/24 22:30 03/09/24 22:00 03/09/24 22:00 03/09/24 21:30 03/09/24 21:30 03/09/24 21:00 03/09/24 21:00 03/09/24 21:00 03/09/24 20:30 03/09/24 20:30 03/09/24 20:30 03/09/24 20:30 55 03/09/24 20:21 Mechanical Vent 55 03/09/24 20:14 65 03/09/24 20:08 Mechanical Vent 03/09/24 20:07 03/09/24 20:07 03/09/24 20:00 Lab & Micro Results (Past 24 Hours) RBC 5.01 M/uL (4.70-6.10) 03/10/24 WBC 20.31 K/ul (4.8-10.8) H 03/10/24 Hgb 14.4 g/dl (14.0-18.0) 03/10/24 Hct 42.3 % (42.0-52.0) 03/10/24 MCV 84.4 fL (80.0-100.0) 03/10/24 MCH 28.7 pg (25.0-34.0) 03/10/24 MCHC 34.0 g/dL (32.0-36.0) 03/10/24 RDW Standard Deviation 44.7 fL (36.4-46.3) 03/10/24 RDW Coefficient of Variation 14.6 % (11.5-14.5) H 03/10/24 Plt Count 217 K/uL (130-400) 03/10/24 MPV 9.9 fL (9.4-12.4) 03/10/24 Neutrophils (%) (Auto) 84.1 % 03/09/24 Lymphocytes (%) (Auto) 3.7 % 03/09/24 Monocytes # (Auto) 1.26 K/uL (0.11-0.59) H 03/09/24 Eosinophils # (Auto) 0.06 K/uL (0.00-0.50) 03/09/24 Immature Granulocyte % (Auto) 4.7 % 03/09/24 Neutrophils # (Auto) 16.40 K/uL (1.40-6.50) H 03/09/24 Lymphocytes # (Auto) 0.73 K/uL (1.20-3.40) L 03/09/24 Monocytes # (Auto) 1.26 K/uL (0.11-0.59) H 03/09/24 Eosinophils # (Auto) 0.06 K/uL (0.00-0.50) 03/09/24 Basophils # (Auto) 0.13 K/uL (0.00-0.20) 03/09/24 Immature Granulocyte # (Auto) 0.92 K/uL (0.01-0.20) H 03/09 Na 134 mmol/L (136-145) L 03/10/24 K 3.8 mmol/L (3.5-5.1) 03/10/24 Cl 102 mmol/L (98-107) 03/10/24 CO2 24 mmol/L (21-32) 03/10/24 Anion Gap 8 (3-11) 03/10/24 BUN 22 mg/dl (6-23) 03/10/24 Creatinine 0.93 mg/dl (0.6-1.4) 03/10/24 Estimated GFR ( Amer) 96.1 ml/min 03/10/24 Estimated GFR (Non-Af Amer) 82.9 ml/min 03/10/24 BUN/Creatinine Ratio 23.7 (10-20) H 03/10/24 Glu 234 mg/dl (70-99(Fasting)) H 03/10/24 Ca 7.9 mg/dl (8.6-10.3) L 03/10/24 Total Bilirubin 1.2 mg/dl (0.2-1.0) H 03/10/24 Direct Bilirubin 0.2 mg/dl (0-0.2) 03/09/24 AST 46 U/L (13-39) H 03/10/24 ALT 46 U/L (7-52) 03/10/24 Alkaline Phosphatase 72 U/L (34-104) 03/10/24 TP 5.8 gm/dl (6.0-8.3) L 03/10/24 Albumin 3.3 gm/dl (3.4-5.0) L 03/10/24 Globulin 2.5 gm/dl (2.5-4.0) 03/10/24 Albumin/Globulin Ratio 1.3 (0.9-2) 03/10/24 Mg 1.5 mg/dl (1.7-2.4) L 03/09/24 11:26 Calcium Level 7.9 mg/dl (8.6-10.3) L 03/10/24 04:20 Prothromb Time International Ratio 1.1 (0.9-1.1) 03/09/24 11:2 6 Venous Blood pH 7.45 (7.36-7.41) H 03/09/24 11:26 Venous Blood Partial Pressure CO2 38 mmHg (38-50) 03/09/24 11:2 6 Venous Blood Partial Pressure O2 60 mmHg 03/09/24 11:26 Venous Blood HCO3 26 mmol/L 03/09/24 11:26 Venous Blood Base Excess 2.4 mEq/L 03/09/24 11:26 Venous Blood Oxygen Saturation 89.5 % 03/09/24 11:26 Microbiology 03/09/24 11:31 Aerobic Blood Culture - Preliminary Blood Gram positive cocci in chains 03/09/24 11:26 Aerobic Blood Culture - Preliminary Blood Gram positive cocci in chains Anaerobic Blood Culture - Preliminary Gram positive cocci in chains 03/09/24 17:45 Gram Stain - Final Cerebral Spinal Fluid Diagnostic Findings (Past 24 Hours) Chest X-Ray 03/09/24 11:16 SINGLE VIEW CHEST CLINICAL HISTORY: Sepsis. FINDINGS: 2 AP, portable, upright chest radiographs are obtained. No prior studies are available for comparison at the time of dictation. The examination is degraded by portable technique, apical lordotic positioning, and patient rotation. The heart is enlarged noting atherosclerotic calcification of the thoracic aorta. The pulmonary vasculature is noncongested. There is bibasilar scarring/atelectasis. The lungs and pleural spaces are otherwise clear. No pneumothorax is seen. The skeletal structures are osteopenic. The bony thorax is grossly intact. IMPRESSION: Cardiomegaly with no acute cardiopulmonary abnormality identified. ACT 112: Negative or not required by law. Electronically signed by: Jaspreet Jean M.D. 03/09/2024 11:50 AM Chest CTA 03/09/24 12:30 CT ANGIOGRAM OF THE CHEST CLINICAL HISTORY: Dyspnea. Hypoxia. COMPARISON STUDY: Chest x-ray dated 03/09/2024. TECHNIQUE: Following the IV administration of 118 cc of Optiray 320, CT angiogram of the chest was performed from the upper abdomen to the thoracic inlet utilizing the pulmonary embolus protocol. Images are reviewed in the axial, sagittal, and coronal planes. 3-D MIPS images are created and assessed. IV contrast was administered without complication. A dose lowering technique was utilized adhering to the principles of ALARA. CT DOSE: 933.46 mGy.cm FINDINGS: Thyroid: Imaged portions of the thyroid gland are normal in size and attenuation. Thoracic aorta: There is mild atherosclerotic calcification of the thoracic aorta, which is normal in caliber and demonstrates standard 3-vessel arch anatomy. No dissection is seen. Pulmonary vasculature: The pulmonary trunk is normal in caliber. There are no filling defects identified in main, lobar, or segmental pulmonary branches to suggest pulmonary embolus. Heart: The heart is enlarged and without pericardial effusion. The coronary arteries are densely calcified. Lungs and pleural spaces: Evaluation of the lung parenchyma is degraded by motion artifact. There is no airspace consolidation or pleural effusion. Dependent scarring/atelectasis is noted at both lung bases. The trachea and central airways are clear. Mediastinum: There is no mediastinal lymphadenopathy. Gretel: Clear. Axillae: There is no axillary lymphadenopathy. Upper abdomen: There are calcified gallstones with no CT evidence of acute cholecystitis. The liver is steatotic. The spleen is enlarged measuring 15.3 cm in length. A small hiatal hernia is noted. Skeletal structures: No lytic or blastic bony lesions are seen. Degenerative change is noted in the shoulders and spine. IMPRESSION: 1. There is no evidence of pulmonary embolus in the main, lobar, or segmental pulmonary arteries. 2. Cardiomegaly noting advanced coronary artery atherosclerosis. 3. No airspace consolidation or pleural effusion is identified. 4. Cholelithiasis. 5. Hepatic steatosis and splenomegaly. 6. Additional findings as above. ACT 112: Negative or not required by law. Electronically signed by: Jaspreet Jean M.D. 03/09/2024 1:[address] 03/09/24 15:36 CT SCAN OF THE BRAIN WITHOUT IV CONTRAST CLINICAL HISTORY: Change in mental status. COMPARISON STUDY: No priors. TECHNIQUE: Unenhanced axial CT scan of the brain is performed from the vertex to the skull base. A dose lowering technique was utilized adhering to the principles of ALARA. The examination is degraded by the presence of residual IV contrast throughout the intracranial circulation. CT DOSE: 1012.93 mGy.cm FINDINGS: Brain parenchyma: There is age-related involutional change noting mild subcortical and periventricular microangiopathic disease. There is no hemorrhag e, mass effect, or evidence of acute territorial ischemia by CT criteria. Young- white matter differentiation is preserved. No extra-axial fluid collection is seen. Ventricles, sulci, cisterns: Prominent secondary to involutional change. Intracranial vasculature: There is atherosclerotic calcification of the cavernous carotid and vertebral arteries. Calvarium: Unremarkable. Sinuses and mastoids: A 12 mm retention cyst is noted in the right maxillary antrum. Trace mucosal thickening is seen in the left maxillary sinus. The remaining paranasal sinuses are clear. The mastoid air cells are well pneumatized. Orbits: The bony orbits are grossly intact. IMPRESSION: There is no hemorrhage, mass effect, or evidence of acute territorial ischemia by CT criteria. ACT 112: Negative or not required by law. Electronically signed by: Jaspreet Jean M.D. 03/09/2024 5:31 PM Chest X-Ray 03/09/24 15:55 SINGLE VIEW CHEST CLINICAL HISTORY: Dyspnea. FINDINGS: An AP, portable, semi-erect chest radiograph is compared to chest x- ray and chest CT performed earlier the same day 03/09/2024. The examination is degraded by portable technique and patient rotation. An endotracheal tube has been placed. The tip projects approximately 4 cm above the kat. The heart is enlarged noting atherosclerotic calcification of the thoracic aorta. There is pulmonary vascular congestion. There is bibasilar scarring/atelectasis. No airspace consolidation, large pleural effusion, or pneumothorax is seen. The skeletal structures are osteopenic. The bony thorax is grossly intact. IMPRESSION: 1. An endotracheal tube has been placed as above. 2. Cardiomegaly. Pulmonary vascular congestion is new from today's earlier examinations. ACT 112: Negative or not required by law. Electronically signed by: Jaspreet Jean M.D. 03/09/2024 4:40 PM Orbit X-Ray 03/09/24 19:12 BONY ORBITS 3 VIEWS CLINICAL HISTORY: MRI clearance. FINDINGS: 3 views of the bony orbits are obtained. Correlation is made with CT of the brain dated 03/09/2024. There is no radiodense/metallic foreign body seen in the region of the bony orbits. Indeterminant metallic foreign bodies/clips project over the left nasopharynx. The bony orbits are intact as imaged. The visualized paranasal sinuses and the mastoid air cells appear clear. The imaged calvarium appears intact. Endotracheal and enteric tubes are in place. IMPRESSION: Indeterminate metallic foreign bodies/clips project over the left nasopharynx. Correlate clinically. ACT 112: Negative or not required by law. Electronically signed by: Jaspreet Jean M.D. 03/09/2024 9:51 PM Chest X-Ray 03/09/24 19:48 KUB CLINICAL HISTORY: Enteric tube placement. FINDINGS: An AP, portable, supine view of the lower chest and upper abdomen is obtained. No prior studies are available for comparison at the time of dictation. There is a nonobstructed abdominal bowel gas pattern. No evidence of intraperitoneal free air is seen on this supine image. An enteric tube tube projects below the diaphragm with the tip overlying the mid to distal stomach. Gallstones are seen in the right upper quadrant. The skeletal structures are osteopenic and appear intact. The heart is enlarged and small pleural effusions are noted. IMPRESSION: 1. An enteric tube has been placed as above. 2. No bowel obstruction is seen. 3. Cholelithiasis. Electronically signed by: Jaspreet Jean M.D. 03/09/2024 9:56 PM KUB X-Ray 03/09/24 20:48 KUB CLINICAL HISTORY: MRI clearance. FINDINGS: 3 AP, portable, supine abdominal radiographs are obtained. No prior studies are available for comparison at the time of dictation. There is a nonobstructed abdominal bowel gas pattern. No evidence of intraperitoneal free air is seen on these supine images. An enteric tube tube projects below the diaphragm with the tip overlying the mid to distal stomach. A rectal temperature probe is in place. No additional radiodense/metallic foreign body is seen. Gallstones are seen in the right upper quadrant. Phleboliths are noted in the pelvis. The skeletal structures are osteopenic and appear intact. Lumbosacral spondylosis is observed. The heart is enlarged and small pleural effusions are noted. IMPRESSION: 1. No acute abnormality is identified. 2. An enteric tube and a rectal temperature probe are in place. 3. Cholelithiasis. 4. No radiodense/metallic foreign body is seen. Electronically signed by: Jaspreet Jean M.D. 03/09/2024 9:54 PM I & O Totals 24 Hours 03/09/24 03/10/24 03/11/24 06:59 06:59 06:59 Intake Total 5637.604 / 5637.604 1046.858 / 1046.858 Output Total 925 / 925 700 / 700 Balance 4712.604 / 4712.604 346.858 / 346.858 Cumulative 03/09/24 11:00 thru 03/10/24 07:49 Intake Total 6684.462 Output Total 1625 Balance 5059.462 RT Ventilator Mngmt (Last Documented) Ventilator Ordered Settings Ventilator Support Mode Assist Control 03/10/24 07:05 Respiratory Rate 18 03/10/24 07:05 Ventilator Tidal Volume 450 03/10/24 07:05 Setting Minute Ventilation 8.1 03/10/24 07:05 Positive End Expiratory 8 03/10/24 07:05 Pressure Fraction of Inspired Oxygen 60 03/10/24 07:05 Peak Inspiratory Flow 60 03/10/24 07:05 Ventilator - PT Measurements Respiratory Rate 18 Exhaled Tidal Volume 451 Minute Ventilation 8.1 Peak Inspiratory Airway 21 Pressure Plateau Pressure 15.8 Respiratory Cycle Inspiratory: 1:4.6 Expiratory Ratio Inspiratory Phase Time 0.60 End-Tidal CO2 36 Static Lung Compliance 57.82 Dynamic Lung Compliance 34.69 Normal Static Lung Compliance 48.00 Coding Level of Care Code 95455 CRITICAL CARE 1ST 30-74M Diagnoses Encephalopathy G93.40 HTN (hypertension) I10 DM (diabetes mellitus) E11.9 Acute hypoxemic respiratory failure J96.01 Hypomagnesemia E83.42 Sepsis A41.9
--- NOTE | 2024-03-10 08:06 | Pharmacy Report ---
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 Pertinent microbiologic data includes: Blood culture growing GPCs with BCID2 indicating Strep pyogenes. Day # 2 of antimicrobial therapy. Plan Vancomycin * Loading dose: 2750 mg IV x 1 administered last evening * Maintenance dose: 1250 mg IV every 12 hours * Regimen is predicted to achieve target AUC/ALEX of 400-600 mg/L.hr * Random level ordered for: 03/11/24 @1100 Pharmacy will continue to follow and will adjust dose/frequency as necessary. Thank you. Pharmacy has transitioned to AUC monitoring for vancomycin. AUC/ALEX is the preferred PK/PD target and is associated with decreased risk of nephrotoxicity compared to traditional trough targets.
--- NOTE | 2024-03-10 08:12 | XRay Report ---
XR chest 1V portable HISTORY: eval lung navarrete and tubes/lines COMPARISON: Chest 03/09/2024. FINDINGS: Endotracheal tube terminates 3.6 cm from the kat. Nasogastric tube terminates below the diaphragm. The tip is not included on this study. No pneumothorax. The heart remains enlarged. There are low lung volumes. There is mild central pulmonary vascular congestion without overt edema. Bibasi lar densities again noted. This may represent atelectasis. No significant pleural effusions. No acute fractures. IMPRESSION: 1. Satisfactory support line placement. 2. Cardiomegaly and mild congestive change persists. ACT 112: Negative or not required by law. Electronically signed by: Danilo Ferrera M.D. 03/10/2024 8:10 AM
[2024-03-10] MEDS: DOXYCYCLINE HYCLATE 100 MG in DEXTROSE 5% MINI-B 100 ML IV SCH (08:33)
[2024-03-10] MEDS: HEPARIN SOD 5,000 UNIT/0.5 ML VIAL SQ SCH (08:56)
[2024-03-10] MEDS: LANTUS PER UNIT CHARGE SC ONE ×2 (08:56→21:12)
--- NOTE | 2024-03-10 11:54 | Pharmacy Report ---
Pharmacy Glycemic Short Note 2 - Date of Service March 10, 2024 - Glycemic Short BSG Results (Last 24 hours): 03/09/24 03/09/24 03/09/24 11:26 15:50 19:38 Glucose 207 H POC Glucose 220 H 155 H 03/10/24 03/10/24 03/10/24 00:02 03:41 04:20 Glucose 234 H POC Glucose 205 H 230 H 03/10/24 03/10/24 07:34 11:02 Glucose POC Glucose 205 H 186 H OUTPATIENT ANTIDIABETIC REGIMEN: * Jardiance 25 mg once daily * Glipizide ER 10mg daily * Tresiba 26 units SC BID * Ozempic ASSESSMENT: * Patient admitted with increasing weakness and fatigue followed by fever, rigors and unresponsiveness. Patient was intubated and admitted to the ICU. 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 Patient is on multiple anti-infectives pending ID review. * Patient was extubated this morning and has a resumed a diet for lunch * Will use moderate stress weight based dosing for basal regimen. IV dexamethasone was administered last night and thus will leave tighter novolog scale through today and reassess tomorrow PLAN FOR INPATIENT GLYCEMIC CONTROL: * Hold outpatient oral diabetes medications * Basal insulin * Lantus 15 units SQ this morning * Lantus scale this evening -0,10,15 units based on BSG-See MAR for details * Bolus insulin * NovoLog per scale ACHS or Q6hrs while NPO and overnight checks * Goal Range: Low 110 mg/dL - High 140 mg/dL * Correction Factor: 15 mg/dL/unit * Nutritional / Prandial insulin per carb ratio of 1 unit per 5 grams CHO consumed
--- NOTE | 2024-03-10 12:30 | Hospitalist Progress Note ---
Date of Service March 10, 2024 Assessment & Plan (1) Encephalopathy: Plan 68-year-old male with PMH of T2DM, HTN, HLD, GERD, statin intolerance presented to the ED 03/09 with complaint of shortness of breath and lethargy for about 2 weeks [employer]. Also reported was sore throat and fevers few days prior to arrival. He reports taking azithromycin 500 mg 4 times daily for 5 days prior to arrival. He was saturating 88% on room air at presentation, was intubated in the ED due to concern about ability to protect airway given AMS at presentation. He is being managed for the following: Acute metabolic encephalopathy: Likely secondary to sepsis Bacteremia Severe sepsis POA: Heart rate/respiratory rate/WBC/temperature elevated at presentation. Lactate elevated at presentation. Sepsis likely secondary to above. Patient coming in with AMS and lethargy for about 2 weeks, associated with fever and sore throat few days prior to arrival. Patient reports taking erythromycin 500 mg 4 times daily for about 5 days prior to arrival. Patient denies any new cough symptoms prior to arrival. Admitting labs: WBC 19.5 K, sodium 132, potassium 3.3, lactate 2.1, magnesium 1.5, UA negative for infection, CSF with pleocytosis/increased glucose level/increased protein level, toxicology screen negative, viral panel negative, Anaplasma and Babesia smear negative. Admitting imagings: CXR with no acute finding. CTA chest with no evidence of PE or airspace consolidation. CT head with no acute finding. Follow-up on CSF serology, Q fever results, Rickettsia, typhus fever results. Admitting blood culture 03/09 positive for gram-positive cocci in chains. Follow-up final results. Follow-up 03/09 CSF fungal and bacterial culture. Currently being managed in ICU, on acyclovir/ampici llin/Rocephin/doxycycline/vancomycin. Patient was extubated in the morning and diet has been resumed. ID consult pending, will follow. Likely repeat Bl Cx and get ECHO. Patient is alert and oriented, vitals getting better/stable. Lactate normalized. WBC remains elevated, got dexa dose 03/09. Monitor replete electrolytes. Hypoxia: Saturating 88% on room air at presentation, was intubated at presentation due to concern of ability to protect airway. Extubated 03/10 morning. Other chronic medical conditions: Continue with/resume home meds as and when able. T2DM: Sliding scale insulin while in hospital. HTN: Continue home amlodipine hydrochlorothiazide and losartan as able. DVT Ppx: SQ heparin Code status: FULL Dispo: Admitted to ICU Admission and Anticipated Discharge Date Admission Date: March 09, 2024 Subjective Patient was seen and examined at bedside. Patient was sitting up in chair, on oxygen mask, NAD, resting comfortably. Patient denies headache, reports some lightheadedness, reports feeling better, is oriented. Patient reports taking azithromycin 500 mg 4 times daily for 5 days prior to arrival, patient reports having sore throat for about 10 days [employer], denies any cough. Patient did report having fevers prior to arrival. Reports no new acute issues with the bowel and bladder. Physical Exam Physical Exam: GENERAL: Alert and oriented x3. NAD, on 4L O2 via OM. HEENT: No pallor, no icterus. Pupils equal, round and reactive to light. Oral mucosa moist. NECK: No JVD, no neck masses. HEART: S1 and S2 heard. Regular rate and rhythm. No murmur, no gallop. RESPIRATORY SYSTEM: Normal AP diameter. No accessory muscle use. No wheezing, no crackles. ABDOMEN: Soft, bowel sounds present, nontender, no distention. CENTRAL NERVOUS SYSTEM: No facial droop. Speech is clear. Obeys simple commands. Moves extremities. EXTREMITIES: No edema, no erythema seen. Results & Data Results & Data Vital Signs (Past 12 Hours) Vital Signs Temp Pulse Resp BP Pulse Ox Pulse Ox O2 Del Method 03/10/24 12:01 36.6 C 96 H 19 90 Oxymask 03/10/24 12:01 111/61 03/10/24 12:00 36.6 C 91 H 15 90 03/10/24 11:30 118/78 03/10/24 11:30 36.6 C 90 19 90 03/10/24 11:01 36.6 C 87 24 91 03/10/24 11:01 118/72 03/10/24 11:00 36.6 C 87 11 L 88 L 03/10/24 10:35 123/75 03/10/24 10:35 36.6 C 83 12 92 03/10/24 10:30 36.6 C 03/10/24 10:01 127/85 04/17/24 10:01 36.5 C 87 15 93 03/10/24 10:00 36.5 C 85 20 03/10/24 09:30 36.4 C L 87 24 94 Oxymask 03/10/24 09:30 135/97 03/10/24 09:00 36.3 C L 83 10 L 91 03/10/24 09:00 123/80 03/10/24 09:00 Oxymask 03/10/24 08:31 36.1 C L 85 13 93 03/10/24 08:31 113/78 03/10/24 08:30 36.1 C L 12 03/10/24 08:25 91 03/10/24 08:00 03/10/24 08:00 35.8 C L 12 92 03/10/24 08:00 146/81 H 03/10/24 07:31 35.7 C L 13 94 03/10/24 07:31 116/90 03/10/24 07:30 35.7 C L 22 03/10/24 07:05 80 18 92 03/10/24 07:00 35.7 C L 16 90 03/10/24 07:00 123/77 03/10/24 06:50 80 03/10/24 06:30 35.6 C L 79 8 L 90 03/10/24 06:30 121/75 03/10/24 06:00 35.5 C L 82 90 03/10/24 06:00 124/78 03/10/24 06:00 124/78 03/10/24 05:30 123/75 03/10/24 05:30 35.4 C L 81 18 88 L 03/10/24 05:00 35.5 C L 81 19 89 L 03/10/24 05:00 128/76 03/10/24 04:30 35.6 C L 80 20 90 03/10/24 04:30 124/75 03/10/24 04:00 35.7 C L 73 93 03/10/24 04:00 126/75 03/10/24 04:00 03/10/24 03:30 117/71 03/10/24 03:30 117/71 03/10/24 03:30 35.8 C L 76 19 92 03/10/24 03:00 118/72 03/10/24 03:00 35.9 C L 74 93 03/10/24 02:30 36.0 C L 76 92 03/10/24 02:30 118/70 03/10/24 02:00 111/72 03/10/24 02:00 36.2 C L 77 20 03/10/24 01:30 117/73 03/10/24 01:30 36.4 C L 80 18 92 03/10/24 01:00 110/72 03/10/24 01:00 36.8 C 83 19 03/10/24 00:34 91 H 03/10/24 00:30 123/78 03/10/24 00:30 37.2 C 89 19 88 L O2 Del Method O2 Flow Rate O2 Flow Rate FiO2 03/10/24 12:01 4 03/10/24 12:01 03/10/24 12:00 03/10/24 11:30 03/10/24 11:30 03/10/24 11:01 03/10/24 11:01 03/10/24 11:00 03/10/24 10:35 03/10/24 10:35 03/10/24 10:30 03/10/24 10:01 03/10/24 10:01 03/10/24 10:00 03/10/24 09:30 6 03/10/24 09:30 03/10/24 09:00 03/10/24 09:00 03/10/24 09:00 6 03/10/24 08:31 03/10/24 08:31 03/10/24 08:30 03/10/24 08:25 Oxymask 6 03/10/24 08:00 60 03/10/24 08:00 03/10/24 08:00 03/10/24 07:31 03/10/24 07:31 03/10/24 07:30 03/10/24 07:05 60 03/10/24 07:00 03/10/24 07:00 03/10/24 06:50 03/10/24 06:30 03/10/24 06:30 03/10/24 06:00 03/10/24 06:00 03/10/24 06:00 03/10/24 05:30 03/10/24 05:30 03/10/24 05:00 03/10/24 05:00 03/10/24 04:30 03/10/24 04:30 03/10/24 04:00 03/10/24 04:00 03/10/24 04:00 65 03/10/24 03:30 03/10/24 03:30 03/10/24 03:30 03/10/24 03:00 03/10/24 03:00 03/10/24 02:30 03/10/24 02:30 03/10/24 02:00 03/10/24 02:00 03/10/24 01:30 03/10/24 01:30 03/10/24 01:00 03/10/24 01:00 03/10/24 00:34 03/10/24 00:30 03/10/24 00:30
--- NOTE | 2024-03-10 12:54 | Infectious Disease Consult ---
Date of Consultation March 10, 2024 Assessment & Plan (1) Sepsis: (2) Leukocytosis: (3) Elevated lactic acid level: (4) Acute hypoxemic respiratory failure: Plan #Strep pyogenes sepsis # Leukocytosis # AMS, resolved # Respiratory failure, s/p extubation03/10 improved MICRO CSF 03/09 Cx NGTD 03/09 bcx GPC, BCID S.pyogenes 68 yo M with h/o DM, A1c 9.1%, HTN, GERD, Basal ganglia aneurysm titanium stenting admitted to [facility] on 03/09 wit sudden onset SOB, lethargy after having a sore throat. ID C/S strep sepsis. Patient reports a sore throat that started 10 days prior. 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 No hardware except above. On admission he was altered and intubated. Labs showed. WBC 19.5 K lactate 2.1, UA no pyuria, toxicology screen negative, viral panel negative, Anaplasma and Babesia smear negative. He underwent an LP, CSF with WBC 6,, glucose 107, rbc 3, protein 111.8 , Admission BCX + GPC in chains, BCID S. pyogenes. CXR and CTA chest with no evidence of PE or airspace consolidation. CT head with no acute finding. He was started on meningitis treatment with [employer]/Vancomycin/acyclovir/ampicillin/doxycycline. He was extubated this am. Discussion Pt with strep pyogenes sepsis likely secondary to pharyngitis, poorly treated w erythromycin. He is remarkably better. Exam is negative for neuro defecits. Doubt he has meningitis but given slightly increased WBC in CSF, will keep on [employer] 2G IV BID until cx are finalized. Recommend -Repeat Blood cultures -Keep on Ceftriaxone 2G IV BID until csf cx back -Can dc vanco, amp, acyclovir, doxy -Follow blood culture sensi - Pending Lyme, CSF cultures D/W patient, , primary Id will follow Kim Reid MD Infectious Diseases [facility], [facility] Consultation Information Consultation was provided via telemedicine using two-way real-time interactive telecommunication between the patient and the telemedicine provider. For the duration of the visit, the provider was performing the assessment from a different facility than the patient. This includesuse of bluetooth stethoscope forauscultationperformed by the telepresenter that the telemedicine provider can hear if described in the physical exam. Winter Intern contact information: Please call [facility] Call Center [phone]. (Phone Number For Physician Use Only) After establishing a telemedicine visit, patient was: Patient was verified with two unique identifiers, Patient/authorized rep acknowledged consent and understanding and Gave permission to continue telehealth session Time Spent with Patient: Initial => 55 min History of Present Illness Reason for Consultation: Strep sepsis Requesting Physician: Dr. Gould Attending Physician: Tal Gould MD History of Present Illness 68 yo M with h/o DM, A1c 9.1%, HTN, GERD, Basal ganglia aneurysm titanium stenting admitted to [facility] on 03/09 wit sudden onset SOB, lethargy after having a sore throat. ID C/S strep sepsis. Patient reports a sore throat that started 10 days prior. 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 No hardware except above. On admission he was altered and intubated. Labs showed. WBC 19.5 K lactate 2.1, UA no pyuria, toxicology screen negative, viral panel negative, Anaplasma and Babesia smear negative. He underwent an LP, CSF with WBC 6,, glucose 107, rbc 3, protein 111.8 , Admission BCX + GPC in chains, BCID S. pyogenes. CXR and CTA chest with no evidence of PE or airspace consolidation. CT head with no acute finding. He was started on meningitis treatment with [employer]/Vancomycin/acyclovir/ampicillin/doxycycline. He was extubated this am. Interview completed, ROS is essentially negative at this time. at bedside Allergies Allergy/AdvReac Type Severity Reaction Status Date / Time No Known Allergies Allergy Unverified 09/12/14 09:34 Home Medications Medication Instructions Recorded Confirmed Type allopurinol 300 mg tablet 300 mg PO DAILY ##30 09/10/14 03/09/24 History hydrochlorothiazide 25 mg tablet 25 mg PO DAILY ##30 09/10/14 03/09/24 History losartan 100 mg tablet 100 mg PO DAILY ##30 09/10/14 03/09/24 History omeprazole 20 mg capsule,delayed 20 mg PO DAILY ##30 09/10/14 03/09/24 History release amlodipine 10 mg tablet 10 mg PO DAILY 03/09/24 03/09/24 History aspirin 325 mg tablet 325 mg PO DAILY 03/09/24 03/09/24 History colchicine 0.6 mg tablet 0.6 mg PO TID 03/09/24 03/09/24 History empagliflozin 25 mg tablet 25 mg PO DAILY 03/09/24 03/09/24 History (Jardiance) glipizide 10 mg tablet, extended 10 mg PO BID 03/09/24 03/09/24 History release 24 hr ibuprofen 800 mg tablet 800 mg PO Q8H PRN Pain 03/09/24 03/09/24 History insulin degludec 200 unit/mL (3 26 unit subcut AMPM 03/09/24 03/09/24 History mL) subcutaneous pen (Tresiba FlexTouch U-200 insulin) multivitamin 1 tab PO DAILY 03/09/24 03/09/24 History potassium 75 mg tablet 75 mg PO DAILY 03/09/24 03/09/24 History semaglutide 0.25 mg or 0.5 mg (2 0.25 mg subcut UD 03/09/24 03/09/24 History mg/3 mL) subcutaneous pen injector (Ozempic) tamsulosin 0.4 mg capsule 0.4 mg PO DAILY 03/09/24 03/09/24 History vitamin B complex 1 tab PO DAILY 03/09/24 03/09/24 History vitamin E 400 unit tablet 45 mg PO DAILY 03/09/24 03/09/24 History Patient History Medical History HTN (hypertension) Encounter for removal of nasal packing DM (diabetes mellitus) HTN (hypertension) Epistaxis Surgical History History of tonsillectomy H/O sinus surgery Family History Other Heart disease Lung cancer Social History Smoking Status: Unknown if ever smoked Hx Alcohol Use: No Hx Substance Use: No Preferred Language: Iraqi Communication Ability: intubated Rec Therapist Required: No Beliefs That Will Affect Care: None Current Living Situation: Spouse Other Information That Helps Us Care for You: No Feels Safe at Home: Yes Safety Concerns: Feels Safe At This Time Assistive Devices Comment: reading glasses Review of System as per HPI Physical Exam Physical Exam: OP difficult to assess Nontender CTAB RRR S1 S2 No c/c/e No obvious cellulitis Results & Data Vital Signs (Past 12 Hours) Vital Signs Temp Pulse Resp BP Pulse Ox Pulse Ox O2 Del Method 03/10/24 12:01 36.6 C 96 H 19 90 Oxymask 03/10/24 12:01 111/61 03/10/24 12:00 36.6 C 91 H 15 90 03/10/24 11:30 118/78 03/10/24 11:30 36.6 C 90 19 90 03/10/24 11:01 36.6 C 87 24 91 03/10/24 11:01 118/72 03/10/24 11:00 36.6 C 87 11 L 88 L 03/10/24 10:35 123/75 03/10/24 10:35 36.6 C 83 12 92 03/10/24 10:30 36.6 C 03/10/24 10:01 127/85 03/10/24 10:01 36.5 C 87 15 93 03/10/24 10:00 36.5 C 85 20 03/10/24 09:30 36.4 C L 87 24 94 Oxymask 03/10/24 09:30 135/97 03/10/24 09:00 36.3 C L 83 10 L 91 03/10/24 09:00 123/80 03/10/24 09:00 Oxymask 03/10/24 08:31 36.1 C L 85 13 93 03/10/24 08:31 113/78 03/10/24 08:30 36.1 C L 12 03/10/24 08:25 91 03/10/24 08:00 03/10/24 08:00 35.8 C L 12 92 03/10/24 08:00 146/81 H 03/10/24 07:31 35.7 C L 13 94 03/10/24 07:31 116/90 03/10/24 07:30 35.7 C L 22 03/10/24 07:05 80 18 92 03/10/24 07:00 35.7 C L 16 90 03/10/24 07:00 123/77 03/10/24 06:50 80 03/10/24 06:30 35.6 C L 79 8 L 90 03/10/24 06:30 121/75 03/10/24 06:00 35.5 C L 82 90 03/10/24 06:00 124/78 03/10/24 06:00 124/78 03/10/24 05:30 123/75 03/10/24 05:30 35.4 C L 81 18 88 L 03/10/24 05:00 35.5 C L 81 19 89 L 03/10/24 05:00 128/76 03/10/24 04:30 35.6 C L 80 20 90 03/10/24 04:30 124/75 03/10/24 04:00 35.7 C L 73 93 03/10/24 04:00 126/75 03/10/24 04:00 03/10/24 03:30 117/71 03/10/24 03:30 117/71 03/10/24 03:30 35.8 C L 76 19 92 03/10/24 03:00 118/72 03/10/24 03:00 35.9 C L 74 93 03/10/24 02:30 36.0 C L 76 92 03/10/24 02:30 118/70 03/10/24 02:00 111/72 03/10/24 02:00 36.2 C L 77 20 03/10/24 01:30 117/73 03/10/24 01:30 36.4 C L 80 18 92 03/10/24 01:00 110/72 03/10/24 01:00 36.8 C 83 19 03/10/24 00:34 91 H 03/10/24 00:30 123/78 03/10/24 00:30 37.2 C 89 19 88 L O2 Del Method O2 Flow Rate O2 Flow Rate FiO2 03/10/24 12:01 4 03/10/24 12:01 03/10/24 12:00 03/10/24 11:30 03/10/24 11:30 03/10/24 11:01 03/10/24 11:01 03/10/24 11:00 03/10/24 10:35 03/10/24 10:35 03/10/24 10:30 03/10/24 10:01 03/10/24 10:01 03/10/24 10:00 03/10/24 09:30 6 03/10/24 09:30 03/10/24 09:00 03/10/24 09:00 03/10/24 09:00 6 03/10/24 08:31 03/10/24 08:31 03/10/24 08:30 03/10/24 08:25 Oxymask 6 03/10/24 08:00 60 03/10/24 08:00 03/10/24 08:00 03/10/24 07:31 03/10/24 07:31 03/10/24 07:30 03/10/24 07:05 60 03/10/24 07:00 03/10/24 07:00 03/10/24 06:50 03/10/24 06:30 03/10/24 06:30 03/10/24 06:00 03/10/24 06:00 03/10/24 06:00 03/10/24 05:30 03/10/24 05:30 03/10/24 05:00 03/10/24 05:00 03/10/24 04:30 03/10/24 04:30 03/10/24 04:00 03/10/24 04:00 03/10/24 04:00 65 03/10/24 03:30 03/10/24 03:30 03/10/24 03:30 03/10/24 03:00 03/10/24 03:00 03/10/24 02:30 03/10/24 02:30 03/10/24 02:00 03/10/24 02:00 03/10/24 01:30 03/10/24 01:30 03/10/24 01:00 03/10/24 01:00 03/10/24 00:34 03/10/24 00:30 03/10/24 00:30 Laboratory Results Laboratory Results - last 48 hr 03/09/24 03/09/24 03/09/24 11:16 11:26 11:26 WBC 19.50 H RBC 5.41 Hgb 15.5 Hct 44.1 MCV 81.5 MCH 28.7 MCHC 35.1 RDW Std Deviation 41.0 RDW Coeff of Celine 13.9 Plt Count 303 MPV 10.0 Immature Gran % (Auto) 4.7 Neut % (Auto) 84.1 Lymph % (Auto) 3.7 [place] % (Auto) 6.5 Eos % (Auto) 0.3 Baso % (Auto) 0.7 Neut # (Auto) 16.40 H Lymph # (Auto) 0.73 L [place] # (Auto) 1.26 H Eos # (Auto) 0.06 Baso # (Auto) 0.13 Immature Gran # (Auto) 0.92 H PT 11.6 INR 1.1 VBG pH 7.45 H VBG pCO2 38 VBG pO2 60 VBG HCO3 26 VBG O2 Saturation 89.5 VBG Base Excess 2.4 Sodium 132 L Potassium 3.3 L Chloride 98 Carbon Dioxide 25 Anion Gap 9 BUN 18 Creatinine 0.97 Est Cr Clr Drug Dosing 86.3 Est GFR ( Amer) 91.3 Est GFR (Non-Af Amer) 78.8 BUN/Creatinine Ratio 18.6 Glucose 207 H POC Glucose Lactate 2.1 H* Calcium 8.9 Magnesium 1.5 L Total Bilirubin 0.6 Direct Bilirubin 0.2 AST 14 ALT 25 Alkaline Phosphatase 77 Ammonia Troponin I High Sens 8.3 C-Reactive Protein Total Protein 6.9 Albumin 4.0 Globulin Albumin/Globulin Ratio Procalcitonin 0.37 TSH Urine Color Urine Appearance Urine pH Ur Specific [place] Urine Protein Urine Glucose (UA) Urine Ketones Urine Blood Urine Nitrite Urine Bilirubin Urine Urobilinogen Ur Leukocyte Esterase Urine WBC (Auto) Urine RBC (Auto) U Hyaline Cast (Auto) U Epithel Cells (Auto) Urine Bacteria (Auto) Fluid Comment CSF Appearance CSF Color Xanthrochromic CSF WBC CSF RBC CSF Cell Count Tube # CSF Chemistry Tube # CSF Glucose CSF Total Protein Nasal Screen MRSA (PCR) Urine Opiates Screen Ur Methadone, Qual Urine Barbiturates Ur Phencyclidine (PCP) U Amphetamin/Meth Scrn MDMA (Ecstasy) Screen U Benzodiazepines Scrn Ur Cocaine Metabolite U Marijuana (THC) Screen Ethyl Alcohol mg/dL Adenovirus (PCR) Not Detected Anaplasma Smear See Comment Cancelled Babesia Smear B. pertussis DNA (PCR) Not Detected B.parapertussis DNA PCR Not Detected Lyme Disease Screen Negative C. pneumoniae DNA (PCR) Not Detected Coronavirus OC43 (PCR) Not Detected Coronavirus HKU1 (PCR) Not Detected Coronavirus 229E (PCR) Not Detected SARS-CoV-2 (PCR) Not Detected Coronavirus NL63 (PCR) Not Detected Monoscreen Human Metapneumovir PCR Not Detected Influenza Type A (PCR) Not Detected Influenza Type B (PCR) Not Detected M. pneumoniae (PCR) Not Detected Parainfluenza 1 (PCR) Not Detected Parainfluenza 2 (PCR) Not Detected Parainfluenza 3 (PCR) Not Detected Parainfluenza 4 (PCR) Not Detected RSV (PCR) Not Detected Entero/Rhino (PCR) Not Detected Streptococcus sp PCR DETECTED A S. pyogenes (PCR) DETECTED A Bld Cult ID Panel PCR See PCR Comment Miscellaneous Test 03/09/24 03/09/24 03/09/24 13:58 14:06 15:50 WBC RBC Hgb Hct MCV MCH MCHC RDW Std Deviation RDW Coeff of Celine Plt Count MPV Immature Gran % (Auto) Neut % (Auto) Lymph % (Auto) [place] % (Auto) Eos % (Auto) Baso % (Auto) Neut # (Auto) Lymph # (Auto) [place] # (Auto) Eos # (Auto) Baso # (Auto) Immature Gran # (Auto) PT INR VBG pH VBG pCO2 VBG pO2 VBG HCO3 VBG O2 Saturation VBG Base Excess Sodium Potassium Chloride Carbon Dioxide Anion Gap BUN Creatinine Est Cr Clr Drug Dosing Est GFR ( Amer) Est GFR (Non-Af Amer) BUN/Creatinine Ratio Glucose POC Glucose 220 H Lactate 1.9 Calcium Magnesium Total Bilirubin Direct Bilirubin AST ALT Alkaline Phosphatase Ammonia Troponin I High Sens C-Reactive Protein Total Protein Albumin Globulin Albumin/Globulin Ratio Procalcitonin TSH Urine Color Yellow Urine Appearance Clear Urine pH 6.5 Ur Specific [place] > 1.045 H Urine Protein 1+ H Urine Glucose (UA) 3+ H Urine Ketones Negative Urine Blood Negative Urine Nitrite Negative Urine Bilirubin Negative Urine Urobilinogen Negative Ur Leukocyte Esterase Negative Urine WBC (Auto) 0-5 Urine RBC (Auto) 0-2 U Hyaline Cast (Auto) 0-2 U Epithel Cells (Auto) 0-2 Urine Bacteria (Auto) None Seen Fluid Comment CSF Appearance CSF Color Xanthrochromic CSF WBC CSF RBC CSF Cell Count Tube # CSF Chemistry Tube # CSF Glucose CSF Total Protein Nasal Screen MRSA (PCR) Urine Opiates Screen Neg Ur Methadone, Qual Neg Urine Barbiturates Neg Ur Phencyclidine (PCP) Neg U Amphetamin/Meth Scrn Neg MDMA (Ecstasy) Screen Neg U Benzodiazepines Scrn Neg Ur Cocaine Metabolite Neg U Marijuana (THC) Screen Neg Ethyl Alcohol mg/dL Adenovirus (PCR) Anaplasma Smear Babesia Smear B. pertussis DNA (PCR) B.parapertussis DNA PCR Lyme Disease Screen C. pneumoniae DNA (PCR) Coronavirus OC43 (PCR) Coronavirus HKU1 (PCR) Coronavirus 229E (PCR) SARS-CoV-2 (PCR) Coronavirus NL63 (PCR) Monoscreen Human Metapneumovir PCR Influenza Type A (PCR) Influenza Type B (PCR) M. pneumoniae (PCR) Parainfluenza 1 (PCR) Parainfluenza 2 (PCR) Parainfluenza 3 (PCR) Parainfluenza 4 (PCR) RSV (PCR) Entero/Rhino (PCR) Streptococcus sp PCR S. pyogenes (PCR) Bld Cult ID Panel PCR Miscellaneous Test 03/09/24 03/09/24 03/09/24 16:35 17:45 17:45 WBC RBC Hgb Hct MCV MCH MCHC RDW Std Deviation RDW Coeff of Celine Plt Count MPV Immature Gran % (Auto) Neut % (Auto) Lymph % (Auto) [place] % (Auto) Eos % (Auto) Baso % (Auto) Neut # (Auto) Lymph # (Auto) [place] # (Auto) Eos # (Auto) Baso # (Auto) Immature Gran # (Auto) PT INR VBG pH VBG pCO2 VBG pO2 VBG HCO3 VBG O2 Saturation VBG Base Excess Sodium Potassium Chloride Carbon Dioxide Anion Gap BUN Creatinine Est Cr Clr Drug Dosing Est GFR ( Amer) Est GFR (Non-Af Amer) BUN/Creatinine Ratio Glucose POC Glucose Lactate Calcium Magnesium Total Bilirubin Direct Bilirubin AST ALT Alkaline Phosphatase Ammonia TNP Troponin I High Sens C-Reactive Protein Total Protein Albumin Globulin Albumin/Globulin Ratio Procalcitonin TSH Urine Color Urine Appearance Urine pH Ur Specific [place] Urine Protein Urine Glucose (UA) Urine Ketones Urine Blood Urine Nitrite Urine Bilirubin Urine Urobilinogen Ur Leukocyte Esterase Urine WBC (Auto) Urine RBC (Auto) U Hyaline Cast (Auto) U Epithel Cells (Auto) Urine Bacteria (Auto) Fluid Comment CSF Appearance Clear CSF Color Colorless Xanthrochromic No xanthochromia CSF WBC 6 H CSF RBC 3 CSF Cell Count Tube # 3 CSF Chemistry Tube # 1 CSF Glucose 107 H CSF Total Protein 111.8 H Cancelled Nasal Screen MRSA (PCR) Urine Opiates Screen Ur Methadone, Qual Urine Barbiturates Ur Phencyclidine (PCP) U Amphetamin/Meth Scrn MDMA (Ecstasy) Screen U Benzodiazepines Scrn Ur Cocaine Metabolite U Marijuana (THC) Screen Ethyl Alcohol mg/dL < 10.0 Adenovirus (PCR) Anaplasma Smear See Comment Babesia Smear See Comment B. pertussis DNA (PCR) B.parapertussis DNA PCR Lyme Disease Screen C. pneumoniae DNA (PCR) Coronavirus OC43 (PCR) Coronavirus HKU1 (PCR) Coronavirus 229E (PCR) SARS-CoV-2 (PCR) Coronavirus NL63 (PCR) Monoscreen Negative Human Metapneumovir PCR Influenza Type A (PCR) Influenza Type B (PCR) M. pneumoniae (PCR) Parainfluenza 1 (PCR) Parainfluenza 2 (PCR) Parainfluenza 3 (PCR) Parainfluenza 4 (PCR) RSV (PCR) Entero/Rhino (PCR) Streptococcus sp PCR S. pyogenes (PCR) Bld Cult ID Panel PCR Miscellaneous Test 03/09/24 03/09/24 03/09/24 18:46 19:38 20:34 WBC RBC Hgb Hct MCV MCH MCHC RDW Std Deviation RDW Coeff of Celine Plt Count MPV Immature Gran % (Auto) Neut % (Auto) Lymph % (Auto) [place] % (Auto) Eos % (Auto) Baso % (Auto) Neut # (Auto) Lymph # (Auto) [place] # (Auto) Eos # (Auto) Baso # (Auto) Immature Gran # (Auto) PT INR VBG pH VBG pCO2 VBG pO2 VBG HCO3 VBG O2 Saturation VBG Base Excess Sodium Potassium Chloride Carbon Dioxide Anion Gap BUN Creatinine Est Cr Clr Drug Dosing Est GFR ( Amer) Est GFR (Non-Af Amer) BUN/Creatinine Ratio Glucose POC Glucose 155 H Lactate Calcium Magnesium Total Bilirubin Direct Bilirubin AST ALT Alkaline Phosphatase Ammonia 36.0 Troponin I High Sens C-Reactive Protein 8.83 H Total Protein Albumin Globulin Albumin/Globulin Ratio Procalcitonin TSH 0.596 Urine Color Urine Appearance Urine pH Ur Specific [place] Urine Protein Urine Glucose (UA) Urine Ketones Urine Blood Urine Nitrite Urine Bilirubin Urine Urobilinogen Ur Leukocyte Esterase Urine WBC (Auto) Urine RBC (Auto) U Hyaline Cast (Auto) U Epithel Cells (Auto) Urine Bacteria (Auto) Fluid Comment CSF Appearance CSF Color Xanthrochromic CSF WBC CSF RBC CSF Cell Count Tube # CSF Chemistry Tube # CSF Glucose CSF Total Protein Nasal Screen MRSA (PCR) Urine Opiates Screen Ur Methadone, Qual Urine Barbiturates Ur Phencyclidine (PCP) U Amphetamin/Meth Scrn MDMA (Ecstasy) Screen U Benzodiazepines Scrn Ur Cocaine Metabolite U Marijuana (THC) Screen Ethyl Alcohol mg/dL Adenovirus (PCR) Anaplasma Smear Babesia Smear B. pertussis DNA (PCR) B.parapertussis DNA PCR Lyme Disease Screen C. pneumoniae DNA (PCR) Coronavirus OC43 (PCR) Coronavirus HKU1 (PCR) Coronavirus 229E (PCR) SARS-CoV-2 (PCR) Coronavirus NL63 (PCR) Monoscreen Human Metapneumovir PCR Influenza Type A (PCR) Influenza Type B (PCR) M. pneumoniae (PCR) Parainfluenza 1 (PCR) Parainfluenza 2 (PCR) Parainfluenza 3 (PCR) Parainfluenza 4 (PCR) RSV (PCR) Entero/Rhino (PCR) Streptococcus sp PCR S. pyogenes (PCR) Bld Cult ID Panel PCR Miscellaneous Test Cancelled 03/09/24 03/10/24 03/10/24 20:35 00:02 03:41 WBC RBC Hgb Hct MCV MCH MCHC RDW Std Deviation RDW Coeff of Celine Plt Count MPV Immature Gran % (Auto) Neut % (Auto) Lymph % (Auto) [place] % (Auto) Eos % (Auto) Baso % (Auto) Neut # (Auto) Lymph # (Auto) [place] # (Auto) Eos # (Auto) Baso # (Auto) Immature Gran # (Auto) PT INR VBG pH VBG pCO2 VBG pO2 VBG HCO3 VBG O2 Saturation VBG Base Excess Sodium Potassium Chloride Carbon Dioxide Anion Gap BUN Creatinine Est Cr Clr Drug Dosing Est GFR ( Amer) Est GFR (Non-Af Amer) BUN/Creatinine Ratio Glucose POC Glucose 205 H 230 H Lactate Calcium Magnesium Total Bilirubin Direct Bilirubin AST ALT Alkaline Phosphatase Ammonia Troponin I High Sens C-Reactive Protein Total Protein Albumin Globulin Albumin/Globulin Ratio Procalcitonin TSH Urine Color Urine Appearance Urine pH Ur Specific [place] Urine Protein Urine Glucose (UA) Urine Ketones Urine Blood Urine Nitrite Urine Bilirubin Urine Urobilinogen Ur Leukocyte Esterase Urine WBC (Auto) Urine RBC (Auto) U Hyaline Cast (Auto) U Epithel Cells (Auto) Urine Bacteria (Auto) Fluid Comment CSF Appearance CSF Color Xanthrochromic CSF WBC CSF RBC CSF Cell Count Tube # CSF Chemistry Tube # CSF Glucose CSF Total Protein Nasal Screen MRSA (PCR) Negative Urine Opiates Screen Ur Methadone, Qual Urine Barbiturates Ur Phencyclidine (PCP) U Amphetamin/Meth Scrn MDMA (Ecstasy) Screen U Benzodiazepines Scrn Ur Cocaine Metabolite U Marijuana (THC) Screen Ethyl Alcohol mg/dL Adenovirus (PCR) Anaplasma Smear Babesia Smear B. pertussis DNA (PCR) B.parapertussis DNA PCR Lyme Disease Screen C. pneumoniae DNA (PCR) Coronavirus OC43 (PCR) Coronavirus HKU1 (PCR) Coronavirus 229E (PCR) SARS-CoV-2 (PCR) Coronavirus NL63 (PCR) Monoscreen Human Metapneumovir PCR Influenza Type A (PCR) Influenza Type B (PCR) M. pneumoniae (PCR) Parainfluenza 1 (PCR) Parainfluenza 2 (PCR) Parainfluenza 3 (PCR) Parainfluenza 4 (PCR) RSV (PCR) Entero/Rhino (PCR) Streptococcus sp PCR S. pyogenes (PCR) Bld Cult ID Panel PCR Miscellaneous Test 03/10/24 03/10/24 03/10/24 04:20 07:34 11:02 WBC 20.31 H RBC 5.01 Hgb 14.4 Hct 42.3 MCV 84.4 MCH 28.7 MCHC 34.0 RDW Std Deviation 44.7 RDW Coeff of Celine 14.6 H Plt Count 217 MPV 9.9 Immature Gran % (Auto) Neut % (Auto) Lymph % (Auto) [place] % (Auto) Eos % (Auto) Baso % (Auto) Neut # (Auto) Lymph # (Auto) [place] # (Auto) Eos # (Auto) Baso # (Auto) Immature Gran # (Auto) PT INR VBG pH VBG pCO2 VBG pO2 VBG HCO3 VBG O2 Saturation VBG Base Excess Sodium 134 L Potassium 3.8 Chloride 102 Carbon Dioxide 24 Anion Gap 8 BUN 22 Creatinine 0.93 Est Cr Clr Drug Dosing 90.0 Est GFR ( Amer) 96.1 Est GFR (Non-Af Amer) 82.9 BUN/Creatinine Ratio 23.7 H Glucose 234 H POC Glucose 205 H 186 H Lactate Calcium 7.9 L Magnesium Total Bilirubin 1.2 H D Direct Bilirubin AST 46 H ALT 46 Alkaline Phosphatase 72 Ammonia Troponin I High Sens C-Reactive Protein Total Protein 5.8 L Albumin 3.3 L Globulin 2.5 Albumin/Globulin Ratio 1.3 Procalcitonin TSH Urine Color Urine Appearance Urine pH Ur Specific [place] Urine Protein Urine Glucose (UA) Urine Ketones Urine Blood Urine Nitrite Urine Bilirubin Urine Urobilinogen Ur Leukocyte Esterase Urine WBC (Auto) Urine RBC (Auto) U Hyaline Cast (Auto) U Epithel Cells (Auto) Urine Bacteria (Auto) Fluid Comment CSF Appearance CSF Color Xanthrochromic CSF WBC CSF RBC CSF Cell Count Tube # CSF Chemistry Tube # CSF Glucose CSF Total Protein Nasal Screen MRSA (PCR) Urine Opiates Screen Ur Methadone, Qual Urine Barbiturates Ur Phencyclidine (PCP) U Amphetamin/Meth Scrn MDMA (Ecstasy) Screen U Benzodiazepines Scrn Ur Cocaine Metabolite U Marijuana (THC) Screen Ethyl Alcohol mg/dL Adenovirus (PCR) Anaplasma Smear Babesia Smear B. pertussis DNA (PCR) B.parapertussis DNA PCR Lyme Disease Screen C. pneumoniae DNA (PCR) Coronavirus OC43 (PCR) Coronavirus HKU1 (PCR) Coronavirus 229E (PCR) SARS-CoV-2 (PCR) Coronavirus NL63 (PCR) Monoscreen Human Metapneumovir PCR Influenza Type A (PCR) Influenza Type B (PCR) M. pneumoniae (PCR) Parainfluenza 1 (PCR) Parainfluenza 2 (PCR) Parainfluenza 3 (PCR) Parainfluenza 4 (PCR) RSV (PCR) Entero/Rhino (PCR) Streptococcus sp PCR S. pyogenes (PCR) Bld Cult ID Panel PCR Miscellaneous Test Diagnostic Findings Chest X-Ray 03/10/24 05:30 XR chest 1V portable HISTORY: eval lung navarrete and tubes/lines COMPARISON: Chest 03/09/2024. FINDINGS: Endotracheal tube terminates 3.6 cm from the kat. Nasogastric tube terminates below the diaphragm. The tip is not included on this study. No pneumothorax. The heart remains enlarged. There are low lung volumes. There is mild central pulmonary vascular congestion without overt edema. Bibasilar densit ies again noted. This may represent atelectasis. No significant pleural effusions. No acute fractures. IMPRESSION: 1. Satisfactory support line placement. 2. Cardiomegaly and mild congestive change persists. ACT 112: Negative or not required by law. Electronically signed by: Danilo Ferrera M.D. 03/10/2024 8:10 AM Medications Administered Current Inpatient Medications Acetaminophen (Acetaminophen 325 Mg Tab) 650 mg PO Q4H PRN PRN Reason: Pain or Fever Stop: 04/08/24 19:39 Dextrose (Dextrose 50% 50 Ml Syringe) 25 - 50 ml IV UD PRN; Protocol PRN Reason: Hypoglycemia Protocol Stop: 04/08/24 21:08 Glucagon (Glucagon For Inj 1 Mg Vial) 1 mg SQ UD PRN; Protocol PRN Reason: Hypoglycemia Protocol Stop: 04/08/24 21:08 Glucose (Glucose 10 Tab/Tube) 4 - 8 tab PO UD PRN; Protocol PRN Reason: Hypoglycemia Treatment Stop: 04/08/24 21:08 Glucose (Glucose 40% Gel 15 Gm Tube) 15 - 30 gm PO UD PRN; Protocol PRN Reason: Hypoglycemia Protocol Stop: 04/08/24 21:08 Heparin Sodium (Porcine) (Heparin Sod 5,000 Unit/0.5 Ml Vial) 5,000 units SQ Q8H GOPI Stop: 04/09/24 08:59 Last Admin: 03/10/24 08:56 Dose: 5,000 units Propofol (Diprivan) 1,000 mg in 100 mls @ 0 mls/hr IV .Q0M GOPI; Protocol Stop: 03/12/24 16:14 Last Titration: 03/10/24 08:10 Dose: 0 mcg/kg/min, 0 mls/hr Ceftriaxone Sodium 2,000 mg/ (Dextrose) 50 mls @ 100 mls/hr IV Q12H [facility]; Protocol Stop: 03/19/24 18:59 Last Infusion: 03/10/24 08:15 Dose: Infused Parenteral Electrolytes (Plasma-Lyte A Ph 7.4) 1,000 mls @ 90 mls/hr IV .Q11H7M [facility] Stop: 04/08/24 19:59 Last Admin: 03/10/24 07:25 Dose: 90 mls/hr Doxycycline Hyclate 100 mg/ (Dextrose) 100 mls @ 50 mls/hr IV Q12H [facility] Stop: 03/20/24 07:59 Last Infusion: 03/10/24 10:59 Dose: Infused Insulin Aspart (Insulin Aspart Per Unit Charge) 0 units SC ACHS [facility] Stop: 04/08/24 21:29 Last Admin: 03/10/24 11:44 Dose: 7 units Insulin Aspart (Insulin Aspart Per Unit Charge) 0 units SC 0000,0400 [facility] Stop: 04/09/24 00:00 Last Admin: 03/10/24 03:44 Dose: 6 units Insulin Glargine (Lantus Per Unit Charge) 0 units SC ONE; Protocol Stop: 03/10/24 21:01 Miscellaneous (Icu Protocol For Hyperglycemia) 1 each N/A ACHS [facility] Stop: 03/11/24 20:59 Last Admin: 03/10/24 11:14 Dose: Not Given Miscellaneous (Carbohydrates For Hypoglycemia ) 15 - 30 gm PO UD PRN PRN Reason: Hypoglycemia Protocol Stop: 04/08/24 21:08 Miscellaneous (Icu Electrolyte Replacement Protocol) 1 each N/A BID@06,18 [facility]; Protocol Stop: 03/17/24 17:59 Miscellaneous Information (Pharmacy Glycemic Mgmt Consult) 1 each N/A UD PRN PRN Reason: Consult Stop: 04/08/24 21:08 Ondansetron HCl (Ondansetron Inj 2 Mg/Ml 2 Ml Vial) 4 mg IV Q6H PRN PRN Reason: Nausea Stop: 04/08/24 19:39 Polyethylene Glycol (Polyethylene (Miralax) 17 Gm Pack) 17 gm PO DAILY PRN PRN Reason: Constipation Stop: 04/08/24 19:39
[2024-03-10] MEDS: ICU ELECTROLYTE REPLACEMENT PROTOCOL SCH (18:42)
[2024-03-10] MEDS ORDERED: LANTUS PER UNIT CHARGE SQ SCH (21:00)
[2024-03-11 05:09] LABS: BUN Creatinine Ratio 26.1 (10-20); Calcium 8.3 mg/dl (8.6-10.3); Creatinine Clr Calc Pharmacy 95.6 ml/min; Est GFR (African American) 100.9 ml/min; Magnesium 2.2 mg/dl (1.7-2.4); Potassium 3.6 mmol/L (3.5-5.1)
[2024-03-11] MEDS: ONDANSETRON INJ 2 MG/ML 2 ML VIAL IV PRN (05:17)
[2024-03-11 05:21] LABS: Hematocrit (blood only) 42.2 % (42.0-52.0); Hemoglobin 13.9 g/dl (14.0-18.0); Mean Corpuscular Hemoglobin 28.2 pg (25.0-34.0); Mean Corpuscular Hgb Conc 32.9 g/dL (32.0-36.0); Mean Corpuscular Volume 85.6 fL (80.0-100.0); Mean Platelet Volume 10.3 fL (9.4-12.4); Platelet Count 226 K/uL (130-400); RDW Coefficient of Variation 14.2 % (11.5-14.5); RDW Standard Deviation 44.4 fL (36.4-46.3); Red Blood Count 4.93 M/uL (4.70-6.10); White Blood Count 20.14 K/ul (4.8-10.8)
[2024-03-11] MEDS ORDERED: SODIUM PHOSPHATE 3 MMOL/1 ML INFUSION IV STA (06:01)
[2024-03-11] MEDS: SODIUM PHOSPHATE 15 MMOL in SODIUM CHLORIDE 0.9% 250 ML IV ONE (06:36)
[2024-03-11] MEDS: POTASSIUM CHLORIDE / WTR 10 MEQ/100 ML PLCT IV SCH (06:37)
--- NOTE | 2024-03-11 08:10 | Critical Care Progress Note ---
Date of Service March 11, 2024 Assessment & Plan (1) Encephalopathy: (2) HTN (hypertension): (3) DM (diabetes mellitus): (4) Acute hypoxemic respiratory failure: (5) Hypomagnesemia: (6) Sepsis: Plan Reason Critically Ill: 68 YOM presents with concern of increasing fatigue and weakness- followed by fever, rigors and unresponsiveness. 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 Strep pyogenes bacteremia 24-hour events: Extubated yesterday. Hemodynamically stable. Neurologically intact. Oxygen's been weaned significantly. ID consultation completed. Recommendations: Neuro -encephalopathy resolved. Likely secondary to bacteremia and septic shock.. PT OT evaluations. Out of bed to chair and ambulate as possible. Cardiac -history of hypertension in the outpatient setting on amlodipin e/losartan. Will hold for now. Lactate now cleared. Respiratory -doing well clinically. Wean oxygen as tolerated. Incentive spirometry and out of bed to chair as tolerated. GI -advancing diet as tolerated. Abdominal complaints secondary to of Ozempic are chronic. Will follow. No indication for additional evaluation RENAL/LYTES -no acute issues. Hyponatremia correcting. -discontinue Vera ENDO - glycemic control per protocol. Currently on insulin therapy. HEME -leukocytosis secondary to infection. Continue DVT prophylaxis ID strep pyogenes bacteremia. ID consultation reviewed. Surveillance cultures no growth to date. CSF negative. Day #3 Rocephin, doxycycline. Defer changes in antibiotics and antibiotic duration to infectious disease LINES/IV ACCESS - PIV, Vera, ETT, OGT Continue use of these lines DVT PROPHYLAXIS - Heparin 5000 units sub q TID DISPO: Okay to go to floor. Critical care will sign off Admission and Anticipated Discharge Date Admission Date: March 09, 2024 Subjective Patient seen and examined. EMR reviewed. Discussed with bedside critical care nurse as well as on multidisciplinary rounds. The patient has been extubated. He is doing well clinically. He denies any shortness of breath. He states he is having GI issues related to Ozempic which are chronic in nature. No nausea or vomiting. He does not report significant abdominal pain. He is neurologically intact. No headache or vision changes. ID consultation was completed Review of Systems Review of Systems: All systems reviewed & are unremarkable except as noted in Subjective Physical Exam Constitutional: WD/WN, vitals as above Neck: trachea midline, no thyromegaly Respiratory: normal respiratory effort, lungs clear to auscultation Cardiovascular: RRR, no murmur, no edema Gastrointestinal (Abdomen): normal bowel sounds, soft, nontender, no hepatosplenomegaly Musculoskeletal: Extremities: extremities normal to inspection Skin: no rashes, warm and dry Lymphatic: no cervical lymphadenopathy Results & Data Results & Data Vital Signs (Past 12 Hours) Vital Signs Pulse Resp BP Pulse Ox Pulse Ox O2 Del Method O2 Del Method 03/11/24 03:00 118/57 L Nasal Cannula 03/11/24 03:00 64 19 94 03/11/24 02:30 122/75 03/11/24 02:30 71 20 91 03/11/24 02:00 118/87 03/11/24 02:00 71 18 92 Nasal Cannula 03/11/24 01:30 125/75 03/11/24 01:30 87 20 92 03/11/24 01:00 132/73 03/11/24 01:00 91 H 12 94 Nasal Cannula 03/11/24 00:36 133/77 03/11/24 00:36 92 H 18 90 03/11/24 00:05 93 Nasal Cannula 03/11/24 00:00 148/86 H 03/11/24 00:00 93 H 19 92 Nasal Cannula 03/11/24 00:00 94 H 03/10/24 23:44 134/73 03/10/24 23:44 89 18 93 03/10/24 23:00 91 H 18 90 Nasal Cannula 03/10/24 22:00 130/90 03/10/24 22:00 92 H 21 92 03/10/24 21:30 144/88 H 03/10/24 21:30 84 19 91 Nasal Cannula 03/10/24 21:00 99 H 19 89 L Room Air 03/10/24 21:00 122/64 O2 Flow Rate O2 Flow Rate 03/11/24 03:00 2 03/11/24 03:00 03/11/24 02:30 03/11/24 02:30 03/11/24 02:00 03/11/24 02:00 2 03/11/24 01:30 03/11/24 01:30 03/11/24 01:00 03/11/24 01:00 2 03/11/24 00:36 03/11/24 00:36 03/11/24 00:05 2 03/11/24 00:00 03/11/24 00:00 2 03/11/24 00:00 03/10/24 23:44 03/10/24 23:44 03/10/24 23:00 2 03/10/24 22:00 03/10/24 22:00 03/10/24 21:30 03/10/24 21:30 2 03/10/24 21:00 03/10/24 21:00 Critical Care Results & Data Vital Signs (Past 12 Hours) Vital Signs Pulse Resp BP Pulse Ox Pulse Ox O2 Del Method O2 Del Method 03/11/24 03:00 118/57 L Nasal Cannula 03/11/24 03:00 64 19 94 03/11/24 02:30 122/75 03/11/24 02:30 71 20 91 03/11/24 02:00 118/87 03/11/24 02:00 71 18 92 Nasal Cannula 03/11/24 01:30 125/75 03/11/24 01:30 87 20 92 03/11/24 01:00 132/73 03/11/24 01:00 91 H 12 94 Nasal Cannula 03/11/24 00:36 133/77 03/11/24 00:36 92 H 18 90 03/11/24 00:05 93 Nasal Cannula 03/11/24 00:00 148/86 H 03/11/24 00:00 93 H 19 92 Nasal Cannula 03/11/24 00:00 94 H 03/10/24 23:44 134/73 03/10/24 23:44 89 18 93 03/10/24 23:00 91 H 18 90 Nasal Cannula 03/10/24 22:00 130/90 03/10/24 22:00 92 H 21 92 03/10/24 21:30 144/88 H 03/10/24 21:30 84 19 91 Nasal Cannula 03/10/24 21:00 99 H 19 89 L Room Air 03/10/24 21:00 122/64 O2 Flow Rate O2 Flow Rate 03/11/24 03:00 2 03/11/24 03:00 03/11/24 02:30 03/11/24 02:30 03/11/24 02:00 03/11/24 02:00 2 03/11/24 01:30 03/11/24 01:30 03/11/24 01:00 03/11/24 01:00 2 03/11/24 00:36 03/11/24 00:36 03/11/24 00:05 2 03/11/24 00:00 03/11/24 00:00 2 03/11/24 00:00 03/10/24 23:44 03/10/24 23:44 03/10/24 23:00 2 03/10/24 22:00 03/10/24 22:00 03/10/24 21:30 03/10/24 21:30 2 03/10/24 21:00 03/10/24 21:00 Lab & Micro Results (Past 24 Hours) RBC 4.93 M/uL (4.70-6.10) 03/11/24 WBC 20.14 K/ul (4.8-10.8) H 03/11/24 Hgb 13.9 g/dl (14.0-18.0) L 03/11/24 Hct 42.2 % (42.0-52.0) 03/11/24 MCV 85.6 fL (80.0-100.0) 03/11/24 MCH 28.2 pg (25.0-34.0) 03/11/24 MCHC 32.9 g/dL (32.0-36.0) 03/11/24 RDW Standard Deviation 44.4 fL (36.4-46.3) 03/11/24 RDW Coefficient of Variation 14.2 % (11.5-14.5) 03/11/24 Plt Count 226 K/uL (130-400) 03/11/24 MPV 10.3 fL (9.4-12.4) 03/11/24 Na 134 mmol/L (136-145) L 03/11/24 K 3.6 mmol/L (3.5-5.1) 03/11/24 Cl 100 mmol/L (98-107) 03/11/24 CO2 28 mmol/L (21-32) 03/11/24 Anion Gap 6 (3-11) 03/11/24 BUN 23 mg/dl (6-23) 03/11/24 Creatinine 0.88 mg/dl (0.6-1.4) 03/11/24 Estimated GFR ( Amer) 100.9 ml/min 03/11/24 Estimated GFR (Non-Af Amer) 87.0 ml/min 03/11/24 BUN/Creatinine Ratio 26.1 (10-20) H 03/11/24 Glu 134 mg/dl (70-99(Fasting)) H 03/11/24 Ca 8.3 mg/dl (8.6-10.3) L 03/11/24 Phosphorus Level 2.0 mg/dl (2.5-4.9) L 03/11/24 Mg 2.2 mg/dl (1.7-2.4) 03/11/24 04:33 Calcium Level 8.3 mg/dl (8.6-10.3) L 03/11/24 04:33 Microbiology 03/09/24 11:31 Aerobic Blood Culture - Preliminary Blood Gram positive cocci in chains Anaerobic Blood Culture - Preliminary Gram positive cocci in chains 03/09/24 11:26 Aerobic Blood Culture - Preliminary Blood Group A Beta Strep Anaerobic Blood Culture - Preliminary Group A Beta Strep 03/09/24 17:45 Gram Stain - Final Cerebral Spinal Fluid CSF Culture - Preliminary No growth to date. Diagnostic Findings (Past 24 Hours) Chest X-Ray 03/10/24 05:30 XR chest 1V portable HISTORY: eval lung navarrete and tubes/lines COMPARISON: Chest 03/09/2024. FINDINGS: Endotracheal tube terminates 3.6 cm from the kat. Nasogastric tube terminates below the diaphragm. The tip is not included on this study. No pneumothorax. The heart remains enlarged. There are low lung volumes. There is mild central pulmonary vascular congestion without overt edema. Bibasilar densities again noted. This may represent atelectasis. No significant pleural effusions. No acute fractures. IMPRESSION: 1. Satisfactory support line placement. 2. Cardiomegaly and mild congestive change persists. ACT 112: Negative or not required by law. Electronically signed by: Danilo Ferrera M.D. 03/10/2024 8:10 AM I & O Totals 24 Hours 03/10/24 03/11/24 03/12/24 06:59 06:59 06:59 Intake Total 5637.604 / 5637.604 3791.851 / 3791.851 100 / 100 Output Total 925 / 925 1801 / 1801 Balance 4712.604 / 4712.604 1 / 100 / 100 Cumulative 03/09/24 11:00 thru 03/11/24 07:54 Intake Total 9529.455 Output Total 2726 Balance 6803.455 RT Ventilator Mngmt (Last Documented) Ventilator Ordered Settings Ventilator Support Mode Assist Control 03/10/24 08:00 Respiratory Rate 19 03/11/24 03:00 Ventilator Tidal Volume 450 03/10/24 08:00 Setting Minute Ventilation 8.1 03/10/24 07:05 Positive End Expiratory 8 03/10/24 08:00 Pressure Fraction of Inspired Oxygen 60 03/10/24 08:00 Peak Inspiratory Flow 60 03/10/24 07:05 Ventilator - PT Measurements Respiratory Rate 19 Exhaled Tidal Volume 451 Minute Ventilation 8.1 Peak Inspiratory Airway 21 Pressure Plateau Pressure 15.8 Respiratory Cycle Inspiratory: 1:4.6 Expiratory Ratio Inspiratory Phase Time 0.60 End-Tidal CO2 36 Static Lung Compliance 57.82 Dynamic Lung Compliance 34.69 Normal Static Lung Compliance 48.00 Coding Level of Care Code 37941 SUB INP/OBS CARE 3/50MIN Diagnoses Encephalopathy G93.40 HTN (hypertension) I10 DM (diabetes mellitus) E11.9 Acute hypoxemic respiratory failure J96.01 Hypomagnesemia E83.42 Sepsis A41.9
[2024-03-11] MEDS: LANTUS PER UNIT CHARGE SC SCH (08:46)
--- NOTE | 2024-03-11 09:05 | Infectious Disease Progress Nt ---
Date of Service March 11, 2024 Assessment & Plan (1) Sepsis: (2) Leukocytosis: (3) Elevated lactic acid level: (4) Acute hypoxemic respiratory failure: Plan #Strep pyogenes sepsis # Leukocytosis # AMS, resolved # Respiratory failure, s/p extubation03/10 improved MICRO CSF 03/09 Cx NGTD 03/09 bcx GPC, BCID S.pyogenes 68 yo M with h/o DM, A1c 9.1%, HTN, GERD, Basal ganglia aneurysm titanium stenting admitted to [facility] on 03/09 wit sudden onset SOB, lethargy after having a sore throat. ID C/S strep sepsis. Patient reports a sore throat that started 10 days prior. 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 No hardware except above. On admission he was altered and intubated. Labs showed. WBC 19.5 K lactate 2.1, UA no pyuria, toxicology screen negative, viral panel negative, Anaplasma and Babesia smear negative. He underwent an LP, CSF with WBC 6,, glucose 107, rbc 3, protein 111.8 , Admission BCX + GPC in chains, BCID S. pyogenes. CXR and CTA chest with no evidence of PE or airspace consolidation. CT head with no acute finding. He was started on meningitis treatment with SHEEP BONER/Vancomycin/acyclovir/ampicillin/doxycycline. He was extubated 03/10. Discussion Pt with strep pyogenes sepsis likely secondary to pharyngitis, poorly treated w erythromycin. He is remarkably better. Exam is negative for neuro defecits. Doubt he has meningitis but given slightly increased WBC in CSF, will keep on SHEEP BONER 2G IV BID until cx are finalized. Recommend -Repeat Blood cultures in lab -Keep on Ceftriaxone 2G IV BID until csf cx negative at 24 hours then would decrease to once daily ID following Kim Reid MD Infectious Diseases [facility] Admission and Anticipated Discharge Date Admission Date: March 09, 2024 Subjective Subsequent visit was provided via telemedicine using two-way real-time interactive telecommunication between the patient and the telemedicine provider. For the duration of the visit, the provider was performing the assessment from a different facility than the patient. This includesuse of bluetooth stethoscope forauscultationperformed by the telepresenter that the telemedicine provider can hear if described in the physical exam. Account Executive contact information: Please call [facility] [phone]. (Phone Number For Physician Use Only) After establishing a telemedicine visit, patient was: Patient was verified with two unique identifiers, Patient/authorized rep acknowledged consent and understanding and Gave permission to continue telehealth session Time Spent with Patient: Subsequent => 35 min Feels tired Denies CP/SOB some nausea no diarrhea Physical Exam Physical Exam: NAD In bed, 2L NC Soft NT ND Results & Data Vital Signs (Past 12 Hours) Vital Signs Pulse Resp BP Pulse Ox Pulse Ox O2 Del Method O2 Del Method 03/11/24 03:00 118/57 L Nasal Cannula 03/11/24 03:00 64 19 94 03/11/24 02:30 122/75 03/11/24 02:30 71 20 91 03/11/24 02:00 118/87 03/11/24 02:00 71 18 92 Nasal Cannula 03/11/24 01:30 125/75 03/11/24 01:30 87 20 92 03/11/24 01:00 132/73 03/11/24 01:00 91 H 12 94 Nasal Cannula 03/11/24 00:36 133/77 03/11/24 00:36 92 H 18 90 03/11/24 00:05 93 Nasal Cannula 03/11/24 00:00 148/86 H 03/11/24 00:00 93 H 19 92 Nasal Cannula 03/11/24 00:00 94 H 03/10/24 23:44 134/73 03/10/24 23:44 89 18 93 03/10/24 23:00 91 H 18 90 Nasal Cannula 03/10/24 22:00 130/90 03/10/24 22:00 92 H 21 92 03/10/24 21:30 144/88 H 03/10/24 21:30 84 19 91 Nasal Cannula O2 Flow Rate O2 Flow Rate 03/11/24 03:00 2 03/11/24 03:00 03/11/24 02:30 03/11/24 02:30 03/11/24 02:00 03/11/24 02:00 2 03/11/24 01:30 03/11/24 01:30 03/11/24 01:00 03/11/24 01:00 2 03/11/24 00:36 03/11/24 00:36 03/11/24 00:05 2 03/11/24 00:00 03/11/24 00:00 2 03/11/24 00:00 03/10/24 23:44 03/10/24 23:44 03/10/24 23:00 2 03/10/24 22:00 03/10/24 22:00 03/10/24 21:30 03/10/24 21:30 2 Laboratory Results Laboratory Results - last 48 hr 03/09/24 03/09/24 03/09/24 11:16 11:26 11:26 WBC 19.50 H RBC 5.41 Hgb 15.5 Hct 44.1 MCV 81.5 MCH 28.7 MCHC 35.1 RDW Std Deviation 41.0 RDW Coeff of Celine 13.9 Plt Count 303 MPV 10.0 Immature Gran % (Auto) 4.7 Neut % (Auto) 84.1 Lymph % (Auto) 3.7 Wilcox % (Auto) 6.5 Eos % (Auto) 0.3 Baso % (Auto) 0.7 Neut # (Auto) 16.40 H Lymph # (Auto) 0.73 L [place] # (Auto) 1.26 H Eos # (Auto) 0.06 Baso # (Auto) 0.13 Immature Gran # (Auto) 0.92 H PT 11.6 INR 1.1 VBG pH 7.45 H VBG pCO2 38 VBG pO2 60 VBG HCO3 26 VBG O2 Saturation 89.5 VBG Base Excess 2.4 Sodium 132 L Potassium 3.3 L Chloride 98 Carbon Dioxide 25 Anion Gap 9 BUN 18 Creatinine 0.97 Est Cr Clr Drug Dosing 86.3 Est GFR ( Amer) 91.3 Est GFR (Non-Af Amer) 78.8 BUN/Creatinine Ratio 18.6 Glucose 207 H POC Glucose Lactate 2.1 H* Calcium 8.9 Phosphorus Magnesium 1.5 L Total Bilirubin 0.6 Direct Bilirubin 0.2 AST 14 ALT 25 Alkaline Phosphatase 77 Ammonia Troponin I High Sens 8.3 C-Reactive Protein Total Protein 6.9 Albumin 4.0 Globulin Albumin/Globulin Ratio Procalcitonin 0.37 TSH Urine Color Urine Appearance Urine pH Ur Specific [place] Urine Protein Urine Glucose (UA) Urine Ketones Urine Blood Urine Nitrite Urine Bilirubin Urine Urobilinogen Ur Leukocyte Esterase Urine WBC (Auto) Urine RBC (Auto) U Hyaline Cast (Auto) U Epithel Cells (Auto) Urine Bacteria (Auto) Fluid Comment CSF Appearance CSF Color Xanthrochromic CSF WBC CSF RBC CSF Cell Count Tube # CSF Chemistry Tube # CSF Glucose CSF Total Protein Nasal Screen MRSA (PCR) Urine Opiates Screen Ur Methadone, Qual Urine Barbiturates Ur Phencyclidine (PCP) U Amphetamin/Meth Scrn MDMA (Ecstasy) Screen U Benzodiazepines Scrn Ur Cocaine Metabolite U Marijuana (THC) Screen Ethyl Alcohol mg/dL Adenovirus (PCR) Not Detected Anaplasma Smear See Comment Cancelled Babesia Smear B. pertussis DNA (PCR) Not Detected B.parapertussis DNA PCR Not Detected Lyme Disease Screen Negative C. pneumoniae DNA (PCR) Not Detected Coronavirus OC43 (PCR) Not Detected Coronavirus HKU1 (PCR) Not Detected Coronavirus 229E (PCR) Not Detected SARS-CoV-2 (PCR) Not Detected Coronavirus NL63 (PCR) Not Detected Monoscreen Human Metapneumovir PCR Not Detected Influenza Type A (PCR) Not Detected Influenza Type B (PCR) Not Detected M. pneumoniae (PCR) Not Detected Parainfluenza 1 (PCR) Not Detected Parainfluenza 2 (PCR) Not Detected Parainfluenza 3 (PCR) Not Detected Parainfluenza 4 (PCR) Not Detected RSV (PCR) Not Detected Entero/Rhino (PCR) Not Detected Streptococcus sp PCR DETECTED A S. pyogenes (PCR) DETECTED A Bld Cult ID Panel PCR See PCR Comment Miscellaneous Test 03/09/24 03/09/24 03/09/24 13:58 14:06 15:50 WBC RBC Hgb Hct MCV MCH MCHC RDW Std Deviation RDW Coeff of Celine Plt Count MPV Immature Gran % (Auto) Neut % (Auto) Lymph % (Auto) [place] % (Auto) Eos % (Auto) Baso % (Auto) Neut # (Auto) Lymph # (Auto) [place] # (Auto) Eos # (Auto) Baso # (Auto) Immature Gran # (Auto) PT INR VBG pH VBG pCO2 VBG pO2 VBG HCO3 VBG O2 Saturation VBG Base Excess Sodium Potassium Chloride Carbon Dioxide Anion Gap BUN Creatinine Est Cr Clr Drug Dosing Est GFR ( Amer) Est GFR (Non-Af Amer) BUN/Creatinine Ratio Glucose POC Glucose 220 H Lactate 1.9 Calcium Phosphorus Magnesium Total Bilirubin Direct Bilirubin AST ALT Alkaline Phosphatase Ammonia Troponin I High Sens C-Reactive Protein Total Protein Albumin Globulin Albumin/Globulin Ratio Procalcitonin TSH Urine Color Yellow Urine Appearance Clear Urine pH 6.5 Ur Specific [place] > 1.045 H Urine Protein 1+ H Urine Glucose (UA) 3+ H Urine Ketones Negative Urine Blood Negative Urine Nitrite Negative Urine Bilirubin Negative Urine Urobilinogen Negative Ur Leukocyte Esterase Negative Urine WBC (Auto) 0-5 Urine RBC (Auto) 0-2 U Hyaline Cast (Auto) 0-2 U Epithel Cells (Auto) 0-2 Urine Bacteria (Auto) None Seen Fluid Comment CSF Appearance CSF Color Xanthrochromic CSF WBC CSF RBC CSF Cell Count Tube # CSF Chemistry Tube # CSF Glucose CSF Total Protein Nasal Screen MRSA (PCR) Urine Opiates Screen Neg Ur Methadone, Qual Neg Urine Barbiturates Neg Ur Phencyclidine (PCP) Neg U Amphetamin/Meth Scrn Neg MDMA (Ecstasy) Screen Neg U Benzodiazepines Scrn Neg Ur Cocaine Metabolite Neg U Marijuana (THC) Screen Neg Ethyl Alcohol mg/dL Adenovirus (PCR) Anaplasma Smear Babesia Smear B. pertussis DNA (PCR) B.parapertussis DNA PCR Lyme Disease Screen C. pneumoniae DNA (PCR) Coronavirus OC43 (PCR) Coronavirus HKU1 (PCR) Coronavirus 229E (PCR) SARS-CoV-2 (PCR) Coronavirus NL63 (PCR) Monoscreen Human Metapneumovir PCR Influenza Type A (PCR) Influenza Type B (PCR) M. pneumoniae (PCR) Parainfluenza 1 (PCR) Parainfluenza 2 (PCR) Parainfluenza 3 (PCR) Parainfluenza 4 (PCR) RSV (PCR) Entero/Rhino (PCR) Streptococcus sp PCR S. pyogenes (PCR) Bld Cult ID Panel PCR Miscellaneous Test 03/09/24 03/09/24 03/09/24 16:35 17:45 17:45 WBC RBC Hgb Hct MCV MCH MCHC RDW Std Deviation RDW Coeff of Celine Plt Count MPV Immature Gran % (Auto) Neut % (Auto) Lymph % (Auto) [place] % (Auto) Eos % (Auto) Baso % (Auto) Neut # (Auto) Lymph # (Auto) [place] # (Auto) Eos # (Auto) Baso # (Auto) Immature Gran # (Auto) PT INR VBG pH VBG pCO2 VBG pO2 VBG HCO3 VBG O2 Saturation VBG Base Excess Sodium Potassium Chloride Carbon Dioxide Anion Gap BUN Creatinine Est Cr Clr Drug Dosing Est GFR ( Amer) Est GFR (Non-Af Amer) BUN/Creatinine Ratio Glucose POC Glucose Lactate Calcium Phosphorus Magnesium Total Bilirubin Direct Bilirubin AST ALT Alkaline Phosphatase Ammonia TNP Troponin I High Sens C-Reactive Protein Total Protein Albumin Globulin Albumin/Globulin Ratio Procalcitonin TSH Urine Color Urine Appearance Urine pH Ur Specific [place] Urine Protein Urine Glucose (UA) Urine Ketones Urine Blood Urine Nitrite Urine Bilirubin Urine Urobilinogen Ur Leukocyte Esterase Urine WBC (Auto) Urine RBC (Auto) U Hyaline Cast (Auto) U Epithel Cells (Auto) Urine Bacteria (Auto) Fluid Comment CSF Appearance Clear CSF Color Colorless Xanthrochromic No xanthochromia CSF WBC 6 H CSF RBC 3 CSF Cell Count Tube # 3 CSF Chemistry Tube # 1 CSF Glucose 107 H CSF Total Protein 111.8 H Cancelled Nasal Screen MRSA (PCR) Urine Opiates Screen Ur Methadone, Qual Urine Barbiturates Ur Phencyclidine (PCP) U Amphetamin/Meth Scrn MDMA (Ecstasy) Screen U Benzodiazepines Scrn Ur Cocaine Metabolite U Marijuana (THC) Screen Ethyl Alcohol mg/dL < 10.0 Adenovirus (PCR) Anaplasma Smear See Comment Babesia Smear See Comment B. pertussis DNA (PCR) B.parapertussis DNA PCR Lyme Disease Screen C. pneumoniae DNA (PCR) Coronavirus OC43 (PCR) Coronavirus HKU1 (PCR) Coronavirus 229E (PCR) SARS-CoV-2 (PCR) Coronavirus NL63 (PCR) Monoscreen Negative Human Metapneumovir PCR Influenza Type A (PCR) Influenza Type B (PCR) M. pneumoniae (PCR) Parainfluenza 1 (PCR) Parainfluenza 2 (PCR) Parainfluenza 3 (PCR) Parainfluenza 4 (PCR) RSV (PCR) Entero/Rhino (PCR) Streptococcus sp PCR S. pyogenes (PCR) Bld Cult ID Panel PCR Miscellaneous Test 03/09/24 03/09/24 03/09/24 18:46 19:38 20:34 WBC RBC Hgb Hct MCV MCH MCHC RDW Std Deviation RDW Coeff of Celine Plt Count MPV Immature Gran % (Auto) Neut % (Auto) Lymph % (Auto) [place] % (Auto) Eos % (Auto) Baso % (Auto) Neut # (Auto) Lymph # (Auto) [place] # (Auto) Eos # (Auto) Baso # (Auto) Immature Gran # (Auto) PT INR VBG pH VBG pCO2 VBG pO2 VBG HCO3 VBG O2 Saturation VBG Base Excess Sodium Potassium Chloride Carbon Dioxide Anion Gap BUN Creatinine Est Cr Clr Drug Dosing Est GFR ( Amer) Est GFR (Non-Af Amer) BUN/Creatinine Ratio Glucose POC Glucose 155 H Lactate Calcium Phosphorus Magnesium Total Bilirubin Direct Bilirubin AST ALT Alkaline Phosphatase Ammonia 36.0 Troponin I High Sens C-Reactive Protein 8.83 H Total Protein Albumin Globulin Albumin/Globulin Ratio Procalcitonin TSH 0.596 Urine Color Urine Appearance Urine pH Ur Specific [place] Urine Protein Urine Glucose (UA) Urine Ketones Urine Blood Urine Nitrite Urine Bilirubin Urine Urobilinogen Ur Leukocyte Esterase Urine WBC (Auto) Urine RBC (Auto) U Hyaline Cast (Auto) U Epithel Cells (Auto) Urine Bacteria (Auto) Fluid Comment CSF Appearance CSF Color Xanthrochromic CSF WBC CSF RBC CSF Cell Count Tube # CSF Chemistry Tube # CSF Glucose CSF Total Protein Nasal Screen MRSA (PCR) Urine Opiates Screen Ur Methadone, Qual Urine Barbiturates Ur Phencyclidine (PCP) U Amphetamin/Meth Scrn MDMA (Ecstasy) Screen U Benzodiazepines Scrn Ur Cocaine Metabolite U Marijuana (THC) Screen Ethyl Alcohol mg/dL Adenovirus (PCR) Anaplasma Smear Babesia Smear B. pertussis DNA (PCR) B.parapertussis DNA PCR Lyme Disease Screen C. pneumoniae DNA (PCR) Coronavirus OC43 (PCR) Coronavirus HKU1 (PCR) Coronavirus 229E (PCR) SARS-CoV-2 (PCR) Coronavirus NL63 (PCR) Monoscreen Human Metapneumovir PCR Influenza Type A (PCR) Influenza Type B (PCR) M. pneumoniae (PCR) Parainfluenza 1 (PCR) Parainfluenza 2 (PCR) Parainfluenza 3 (PCR) Parainfluenza 4 (PCR) RSV (PCR) Entero/Rhino (PCR) Streptococcus sp PCR S. pyogenes (PCR) Bld Cult ID Panel PCR Miscellaneous Test Cancelled 03/09/24 03/10/24 03/10/24 20:35 00:02 03:41 WBC RBC Hgb Hct MCV MCH MCHC RDW Std Deviation RDW Coeff of Celine Plt Count MPV Immature Gran % (Auto) Neut % (Auto) Lymph % (Auto) [place] % (Auto) Eos % (Auto) Baso % (Auto) Neut # (Auto) Lymph # (Auto) [place] # (Auto) Eos # (Auto) Baso # (Auto) Immature Gran # (Auto) PT INR VBG pH VBG pCO2 VBG pO2 VBG HCO3 VBG O2 Saturation VBG Base Excess Sodium Potassium Chloride Carbon Dioxide Anion Gap BUN Creatinine Est Cr Clr Drug Dosing Est GFR ( Amer) Est GFR (Non-Af Amer) BUN/Creatinine Ratio Glucose POC Glucose 205 H 230 H Lactate Calcium Phosphorus Magnesium Total Bilirubin Direct Bilirubin AST ALT Alkaline Phosphatase Ammonia Troponin I High Sens C-Reactive Protein Total Protein Albumin Globulin Albumin/Globulin Ratio Procalcitonin TSH Urine Color Urine Appearance Urine pH Ur Specific [place] Urine Protein Urine Glucose (UA) Urine Ketones Urine Blood Urine Nitrite Urine Bilirubin Urine Urobilinogen Ur Leukocyte Esterase Urine WBC (Auto) Urine RBC (Auto) U Hyaline Cast (Auto) U Epithel Cells (Auto) Urine Bacteria (Auto) Fluid Comment CSF Appearance CSF Color Xanthrochromic CSF WBC CSF RBC CSF Cell Count Tube # CSF Chemistry Tube # CSF Glucose CSF Total Protein Nasal Screen MRSA (PCR) Negative Urine Opiates Screen Ur Methadone, Qual Urine Barbiturates Ur Phencyclidine (PCP) U Amphetamin/Meth Scrn MDMA (Ecstasy) Screen U Benzodiazepines Scrn Ur Cocaine Metabolite U Marijuana (THC) Screen Ethyl Alcohol mg/dL Adenovirus (PCR) Anaplasma Smear Babesia Smear B. pertussis DNA (PCR) B.parapertussis DNA PCR Lyme Disease Screen C. pneumoniae DNA (PCR) Coronavirus OC43 (PCR) Coronavirus HKU1 (PCR) Coronavirus 229E (PCR) SARS-CoV-2 (PCR) Coronavirus NL63 (PCR) Monoscreen Human Metapneumovir PCR Influenza Type A (PCR) Influenza Type B (PCR) M. pneumoniae (PCR) Parainfluenza 1 (PCR) Parainfluenza 2 (PCR) Parainfluenza 3 (PCR) Parainfluenza 4 (PCR) RSV (PCR) Entero/Rhino (PCR) Streptococcus sp PCR S. pyogenes (PCR) Bld Cult ID Panel PCR Miscellaneous Test 03/10/24 03/10/24 03/10/24 04:20 07:34 11:02 WBC 20.31 H RBC 5.01 Hgb 14.4 Hct 42.3 MCV 84.4 MCH 28.7 MCHC 34.0 RDW Std Deviation 44.7 RDW Coeff of Celine 14.6 H Plt Count 217 MPV 9.9 Immature Gran % (Auto) Neut % (Auto) Lymph % (Auto) [place] % (Auto) Eos % (Auto) Baso % (Auto) Neut # (Auto) Lymph # (Auto) [place] # (Auto) Eos # (Auto) Baso # (Auto) Immature Gran # (Auto) PT INR VBG pH VBG pCO2 VBG pO2 VBG HCO3 VBG O2 Saturation VBG Base Excess Sodium 134 L Potassium 3.8 Chloride 102 Carbon Dioxide 24 Anion Gap 8 BUN 22 Creatinine 0.93 Est Cr Clr Drug Dosing 90.0 Est GFR ( Amer) 96.1 Est GFR (Non-Af Amer) 82.9 BUN/Creatinine Ratio 23.7 H Glucose 234 H POC Glucose 205 H 186 H Lactate Calcium 7.9 L Phosphorus Magnesium Total Bilirubin 1.2 H D Direct Bilirubin AST 46 H ALT 46 Alkaline Phosphatase 72 Ammonia Troponin I High Sens C-Reactive Protein Total Protein 5.8 L Albumin 3.3 L Globulin 2.5 Albumin/Globulin Ratio 1.3 Procalcitonin TSH Urine Color Urine Appearance Urine pH Ur Specific [place] Urine Protein Urine Glucose (UA) Urine Ketones Urine Blood Urine Nitrite Urine Bilirubin Urine Urobilinogen Ur Leukocyte Esterase Urine WBC (Auto) Urine RBC (Auto) U Hyaline Cast (Auto) U Epithel Cells (Auto) Urine Bacteria (Auto) Fluid Comment CSF Appearance CSF Color Xanthrochromic CSF WBC CSF RBC CSF Cell Count Tube # CSF Chemistry Tube # CSF Glucose CSF Total Protein Nasal Screen MRSA (PCR) Urine Opiates Screen Ur Methadone, Qual Urine Barbiturates Ur Phencyclidine (PCP) U Amphetamin/Meth Scrn MDMA (Ecstasy) Screen U Benzodiazepines Scrn Ur Cocaine Metabolite U Marijuana (THC) Screen Ethyl Alcohol mg/dL Adenovirus (PCR) Anaplasma Smear Babesia Smear B. pertussis DNA (PCR) B.parapertussis DNA PCR Lyme Disease Screen C. pneumoniae DNA (PCR) Coronavirus OC43 (PCR) Coronavirus HKU1 (PCR) Coronavirus 229E (PCR) SARS-CoV-2 (PCR) Coronavirus NL63 (PCR) Monoscreen Human Metapneumovir PCR Influenza Type A (PCR) Influenza Type B (PCR) M. pneumoniae (PCR) Parainfluenza 1 (PCR) Parainfluenza 2 (PCR) Parainfluenza 3 (PCR) Parainfluenza 4 (PCR) RSV (PCR) Entero/Rhino (PCR) Streptococcus sp PCR S. pyogenes (PCR) Bld Cult ID Panel PCR Miscellaneous Test 03/10/24 03/10/24 03/11/24 16:08 20:11 00:42 WBC RBC Hgb Hct MCV MCH MCHC RDW Std Deviation RDW Coeff of Celine Plt Count MPV Immature Gran % (Auto) Neut % (Auto) Lymph % (Auto) [place] % (Auto) Eos % (Auto) Baso % (Auto) Neut # (Auto) Lymph # (Auto) [place] # (Auto) Eos # (Auto) Baso # (Auto) Immature Gran # (Auto) PT INR VBG pH VBG pCO2 VBG pO2 VBG HCO3 VBG O2 Saturation VBG Base Excess Sodium Potassium Chloride Carbon Dioxide Anion Gap BUN Creatinine Est Cr Clr Drug Dosing Est GFR ( Amer) Est GFR (Non-Af Amer) BUN/Creatinine Ratio Glucose POC Glucose 169 H 169 H 140 H Lactate Calcium Phosphorus Magnesium Total Bilirubin Direct Bilirubin AST ALT Alkaline Phosphatase Ammonia Troponin I High Sens C-Reactive Protein Total Protein Albumin Globulin Albumin/Globulin Ratio Procalcitonin TSH Urine Color Urine Appearance Urine pH Ur Specific [place] Urine Protein Urine Glucose (UA) Urine Ketones Urine Blood Urine Nitrite Urine Bilirubin Urine Urobilinogen Ur Leukocyte Esterase Urine WBC (Auto) Urine RBC (Auto) U Hyaline Cast (Auto) U Epithel Cells (Auto) Urine Bacteria (Auto) Fluid Comment CSF Appearance CSF Color Xanthrochromic CSF WBC CSF RBC CSF Cell Count Tube # CSF Chemistry Tube # CSF Glucose CSF Total Protein Nasal Screen MRSA (PCR) Urine Opiates Screen Ur Methadone, Qual Urine Barbiturates Ur Phencyclidine (PCP) U Amphetamin/Meth Scrn MDMA (Ecstasy) Screen U Benzodiazepines Scrn Ur Cocaine Metabolite U Marijuana (THC) Screen Ethyl Alcohol mg/dL Adenovirus (PCR) Anaplasma Smear Babesia Smear B. pertussis DNA (PCR) B.parapertussis DNA PCR Lyme Disease Screen C. pneumoniae DNA (PCR) Coronavirus OC43 (PCR) Coronavirus HKU1 (PCR) Coronavirus 229E (PCR) SARS-CoV-2 (PCR) Coronavirus NL63 (PCR) Monoscreen Human Metapneumovir PCR Influenza Type A (PCR) Influenza Type B (PCR) M. pneumoniae (PCR) Parainfluenza 1 (PCR) Parainfluenza 2 (PCR) Parainfluenza 3 (PCR) Parainfluenza 4 (PCR) RSV (PCR) Entero/Rhino (PCR) Streptococcus sp PCR S. pyogenes (PCR) Bld Cult ID Panel PCR Miscellaneous Test 03/11/24 03/11/24 04:06 04:33 WBC 20.14 H RBC 4.93 Hgb 13.9 L Hct 42.2 MCV 85.6 MCH 28.2 MCHC 32.9 RDW Std Deviation 44.4 RDW Coeff of Celine 14.2 Plt Count 226 MPV 10.3 Immature Gran % (Auto) Neut % (Auto) Lymph % (Auto) [place] % (Auto) Eos % (Auto) Baso % (Auto) Neut # (Auto) Lymph # (Auto) [place] # (Auto) Eos # (Auto) Baso # (Auto) Immature Gran # (Auto) PT INR VBG pH VBG pCO2 VBG pO2 VBG HCO3 VBG O2 Saturation VBG Base Excess Sodium 134 L Potassium 3.6 Chloride 100 Carbon Dioxide 28 Anion Gap 6 BUN 23 Creatinine 0.88 Est Cr Clr Drug Dosing 95.6 Est GFR ( Amer) 100.9 Est GFR (Non-Af Amer) 87.0 BUN/Creatinine Ratio 26.1 H Glucose 134 H POC Glucose 128 H Lactate Calcium 8.3 L Phosphorus 2.0 L Magnesium 2.2 Total Bilirubin Direct Bilirubin AST ALT Alkaline Phosphatase Ammonia Troponin I High Sens C-Reactive Protein Total Protein Albumin Globulin Albumin/Globulin Ratio Procalcitonin TSH Urine Color Urine Appearance Urine pH Ur Specific [place] Urine Protein Urine Glucose (UA) Urine Ketones Urine Blood Urine Nitrite Urine Bilirubin Urine Urobilinogen Ur Leukocyte Esterase Urine WBC (Auto) Urine RBC (Auto) U Hyaline Cast (Auto) U Epithel Cells (Auto) Urine Bacteria (Auto) Fluid Comment CSF Appearance CSF Color Xanthrochromic CSF WBC CSF RBC CSF Cell Count Tube # CSF Chemistry Tube # CSF Glucose CSF Total Protein Nasal Screen MRSA (PCR) Urine Opiates Screen Ur Methadone, Qual Urine Barbiturates Ur Phencyclidine (PCP) U Amphetamin/Meth Scrn MDMA (Ecstasy) Screen U Benzodiazepines Scrn Ur Cocaine Metabolite U Marijuana (THC) Screen Ethyl Alcohol mg/dL Adenovirus (PCR) Anaplasma Smear Babesia Smear B. pertussis DNA (PCR) B.parapertussis DNA PCR Lyme Disease Screen C. pneumoniae DNA (PCR) Coronavirus OC43 (PCR) Coronavirus HKU1 (PCR) Coronavirus 229E (PCR) SARS-CoV-2 (PCR) Coronavirus NL63 (PCR) Monoscreen Human Metapneumovir PCR Influenza Type A (PCR) Influenza Type B (PCR) M. pneumoniae (PCR) Parainfluenza 1 (PCR) Parainfluenza 2 (PCR) Parainfluenza 3 (PCR) Parainfluenza 4 (PCR) RSV (PCR) Entero/Rhino (PCR) Streptococcus sp PCR S. pyogenes (PCR) Bld Cult ID Panel PCR Miscellaneous Test Microbiology 03/09/24 11:31 Blood Aerobic Blood Culture - Preliminary Gram positive cocci in chains 03/09/24 11:31 Blood Anaerobic Blood Culture - Preliminary Gram positive cocci in chains 03/09/24 11:26 Blood Aerobic Blood Culture - Preliminary Group A Beta Strep 03/09/24 11:26 Blood Anaerobic Blood Culture - Preliminary Group A Beta Strep 03/09/24 17:45 Cerebral Spinal Fluid Gram Stain - Final 03/09/24 17:45 Cerebral Spinal Fluid CSF Culture - Preliminary No growth to date.
[2024-03-11 13:32] LABS: Epstein Barr Virus Early Ag Ab <9.00 U/mL
--- NOTE | 2024-03-11 16:25 | Hospitalist Progress Note ---
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 Also reported was sore throat and fevers few days prior to arrival. He reports taking azithromycin 500 mg 4 times daily for 5 days prior to arrival. He was saturating 88% on room air at presentation, was intubated in the ED due to concern about ability to protect airway given AMS at presentation. He is being managed for the following: Acute metabolic encephalopathy: Likely secondary to sepsis Bacteremia Severe sepsis POA: Heart rate/respiratory rate/WBC/temperature elevated at presentation. Lactate elevated at presentation. Sepsis likely secondary to above. Patient coming in with AMS and lethargy for about 2 weeks, associated with fever and sore throat few days prior to arrival. Patient reports taking erythromycin 500 mg 4 times daily for about 5 days prior to arrival. Patient denies any new cough symptoms prior to arrival. Admitting labs: WBC 19.5 K, sodium 132, potassium 3.3, lactate 2.1, magnesium 1.5, UA negative for infection, CSF with pleocytosis/increased glucose level/increased protein level, toxicology screen negative, viral panel negative, Anaplasma and Babesia smear negative. Admitting imagings: CXR with no acute finding. CTA chest with no evidence of PE or airspace consolidation. CT head with no acute finding. Follow-up on CSF serology, Q fever results, Rickettsia, typhus fever results. Admitting blood culture 03/09 positive for gram-positive cocci in chains. Follow-up final results. Follow-up 03/09 CSF fungal and bacterial culture. --> Bacterial Cx negative. Was initially on acyclovir/ampicillin/Rocephin/doxycycline/vancomycin---> ID on board, currently on iv rocephin bid. f/u repeat bl cx. ECHO w/ no s/o vegetations. Patient is alert and oriented, vitals getting better/stable. Lactate normalized. WBC remains elevated, got dexa dose 03/09. Monitor replete electrolytes. DC IVF as pt's po intake has improved. Hypoxia: Saturating 88% on room air at presentation, was intubated at presentation due to concern of ability to protect airway. Extubated 03/10 morning. Monitor. Other chronic medical conditions: Continue with/resume home meds as and when able. T2DM: Sliding scale insulin while in hospital. HTN: Continue home amlodipine hydrochlorothiazide and losartan as able. DVT Ppx: SQ heparin Code status: FULL Dispo: Downgrade to PCU. Admission and Anticipated Discharge Date Admission Date: March 09, 2024 Subjective Patient was seen and examined at bedside. Patient was lying in bed, on room air, NAD, resting comfortably. Patient denies headache, reports feeling better but is tired today and was nauseous in the morning. Patient reports being able to eat okay and moving bowels okay. Patient continues to report dry cough. Physical Exam Physical Exam: GENERAL: Alert and oriented x3. NAD, on RA. Appears tired. HEENT: No pallor, no icterus. Pupils equal, round and reactive to light. Oral mucosa moist. NECK: No JVD, no neck masses. HEART: S1 and S2 heard. Regular rate and rhythm. No murmur, no gallop. RESPIRATORY SYSTEM: Normal AP diameter. No accessory muscle use. No wheezing, no crackles. ABDOMEN: Soft, bowel sounds present, nontender, no distention. CENTRAL NERVOUS SYSTEM: No facial droop. Speech is clear. Obeys simple commands. Moves extremities. EXTREMITIES: No edema, no erythema seen. Results & Data Results & Data Vital Signs (Past 12 Hours) Vital Signs Pulse Resp BP Pulse Ox 03/11/24 14:00 85 17 87 L 03/11/24 13:00 86 18 90 03/11/24 12:00 96 H 28 H 88 L 03/11/24 11:00 86 22 124/85 92 03/11/24 10:37 89 23 91 03/11/24 09:30 129/75 03/11/24 09:30 86 16 91 03/11/24 09:09 88 23 90 03/11/24 08:00 85 16 89 L 03/11/24 08:00 121/88 03/11/24 08:00 88 03/11/24 07:30 134/81 03/11/24 07:30 88 21 95 03/11/24 07:00 139/83 03/11/24 07:00 85 20 90 03/11/24 06:30 124/75 03/11/24 06:30 77 18 94 03/11/24 06:00 130/71 03/11/24 06:00 76 17 93 03/11/24 05:30 94 H 39 H 89 L 03/11/24 05:30 133/81 03/11/24 05:00 124/76 03/11/24 05:00 96 H 25 H 91 03/11/24 04:30 112/65 03/11/24 04:30 74 20 94
[2024-03-11] MEDS ORDERED: LANTUS PER UNIT CHARGE SC SCH (21:00)
[2024-03-12 05:17] LABS: Hematocrit (blood only) 44.5 % (42.0-52.0); Mean Corpuscular Hemoglobin 28.3 pg (25.0-34.0); Mean Corpuscular Hgb Conc 33.7 g/dL (32.0-36.0); Mean Platelet Volume 10.4 fL (9.4-12.4); Platelet Count 263 K/uL (130-400); RDW Coefficient of Variation 14.2 % (11.5-14.5); RDW Standard Deviation 43.6 fL (36.4-46.3); White Blood Count 17.51 K/ul (4.8-10.8)
[2024-03-12 05:27] LABS: BUN Creatinine Ratio 15.9 (10-20); Calcium 8.7 mg/dl (8.6-10.3); Creatinine Clr Calc Pharmacy 102.3 ml/min; Est GFR (African American) 103.8 ml/min; Est GFR (Non-African American) 89.6 ml/min; Phosphorus 2.2 mg/dl (2.5-4.9); Potassium 3.5 mmol/L (3.5-5.1)
--- NOTE | 2024-03-12 07:48 | Infectious Disease Progress Nt ---
Date of Service March 12, 2024 Assessment & Plan (1) Sepsis: (2) Leukocytosis: (3) Elevated lactic acid level: (4) Acute hypoxemic respiratory failure: Plan #Strep pyogenes 03/09, Bcx NG on 03/10 # Leukocytosis, improving # AMS, resolved # Respiratory failure, s/p extubation03/10 improved MICRO CSF 03/09 Cx NGTD 03/09 bcx GPC, BCID S.pyogenes 68 yo M with h/o DM, A1c 9.1%, HTN, GERD, Basal ganglia aneurysm titanium stenting [place] [facility] [place] wit sudden onset SOB, lethargy after having a sore throat. ID C/S strep sepsis. Patient reports a sore throat that started 10 days prior. 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 No hardware except above. On admission he was altered and intubated. Labs showed. WBC 19.5 K lactate 2.1, UA no pyuria, toxicology screen negative, viral panel negative, Anaplasma and Babesia smear negative. He underwent an LP, CSF with WBC 6,, glucose 107, rbc 3, protein 111.8 , Admission BCX + GPC in chains, BCID S. pyogenes. CXR and CTA chest with no evidence of PE or airspace consolidation. CT head with no acute finding. He was started on meningitis treatment with KITCHEN FOOD ASSEMBLER/Vancomycin/acyclovir/ampicillin/doxycycline. He was extubated 03/10. Since then he is doing well, no complaints, Exam is unremarkable for seeding. Discussion Pt with strep pyogenes sepsis likely secondary to pharyngitis, poorly treated w erythromycin. He is remarkably better. Exam is negative for neuro defecits. Doubt he has meningitis but given slightly increased WBC in CSF, but kept KITCHEN FOOD ASSEMBLER 2G IV BID until cx are finalized. CSF no c/w bacterial meningitis. CX are negative Recommend -Follow WBC -Repeat Blood cultures in lab from 03/10 -If on 03/13 his WBC continues to improve and 03/10 Blood cultures are no growth and he continues to feel improved then can be discharged on Amoxicillin 1G PO TID x 10 day -I will decrease KITCHEN FOOD ASSEMBLER to 2G IV daily -Tomorrow, please give dose of Ceftriaxone 2g IV prior to discharge I d/w Patient in depth if any return of symptoms or new concerns for infection to RT to ED. ID will s/o please page [facility] with any questions. Kim Reid MD Infectious Diseases [facility], [facility] Admission and Anticipated Discharge Date Admission Date: March 09, 2024 Subjective Subsequent visit was provided via telemedicine using two-way real-time interactive telecommunication between the patient and the telemedicine provider. For the duration of the visit, the provider was performing the assessment from a different facility than the patient. This includesuse of bluetooth stethoscope forauscultationperformed by the telepresenter that the telemedicine provider can hear if described in the physical exam. Certified Hearing Instrument Dispenser contact information: Please call [facility] Call Center . (Phone Number For Physician Use Only) After establishing a telemedicine visit, patient was: Patient was verified with two unique identifiers, Patient/authorized rep acknowledged consent and understanding and Gave permission to continue telehealth session Time Spent with Patient: Subsequent => 35 min Feeling well Off oxygen Sitting in chair No CP/SOB, mild dry cough No neck pain, back pain Review of System as per above Physical Exam Physical Exam: NAD CTAB RRR S1 S2 Soft NT ND No rash Results & Data Vital Signs (Past 12 Hours) Vital Signs Temp Pulse Pulse Resp BP BP BP 03/12/24 04:45 37 C 87 22 138/80 03/12/24 01:00 17 03/12/24 00:40 139/86 03/12/24 00:40 83 34 H 03/12/24 00:30 78 24 03/12/24 00:00 79 22 03/12/24 00:00 80 03/11/24 23:30 82 22 03/11/24 23:00 84 23 03/11/24 22:30 90 18 03/11/24 22:10 21 03/11/24 21:00 37.3 C 92 H 21 143/74 H 03/11/24 20:00 Pulse Ox O2 Del Method O2 Flow Rate 03/12/24 04:45 93 Nasal Cannula 2 03/12/24 01:00 03/12/24 00:40 03/12/24 00:40 90 03/12/24 00:30 03/12/24 00:00 03/12/24 00:00 03/11/24 23:30 03/11/24 23:00 93 03/11/24 22:30 91 03/11/24 22:10 03/11/24 21:00 92 Nasal Cannula 3 03/11/24 20:00 Nasal Cannula 2 Laboratory Results Laboratory Results - last 48 hr 03/09/24 03/10/24 03/10/24 16:35 11:02 16:08 WBC RBC Hgb Hct MCV MCH MCHC RDW Std Deviation RDW Coeff of Celine Plt Count MPV Sodium Potassium Chloride Carbon Dioxide Anion Gap BUN Creatinine Est Cr Clr Drug Dosing Est GFR ( Amer) Est GFR (Non-Af Amer) BUN/Creatinine Ratio Glucose POC Glucose 186 H 169 H Calcium Phosphorus Magnesium EBV Capsid Ag IgG Ab 74.10 H EBV Capsid Ag IgM Ab <36.00 EBV EA Restrict+Diffuse <9.00 EBV Nuclear Antigen Ab 29.70 H EBV Antibody Interp SEE NOTE 03/10/24 03/11/24 03/11/24 20:11 00:42 04:06 WBC RBC Hgb Hct MCV MCH MCHC RDW Std Deviation RDW Coeff of Celine Plt Count MPV Sodium Potassium Chloride Carbon Dioxide Anion Gap BUN Creatinine Est Cr Clr Drug Dosing Est GFR ( Amer) Est GFR (Non-Af Amer) BUN/Creatinine Ratio Glucose POC Glucose 169 H 140 H 128 H Calcium Phosphorus Magnesium EBV Capsid Ag IgG Ab EBV Capsid Ag IgM Ab EBV EA Restrict+Diffuse EBV Nuclear Antigen Ab EBV Antibody Interp 03/11/24 03/11/24 03/11/24 04:33 11:39 16:43 WBC 20.14 H RBC 4.93 Hgb 13.9 L Hct 42.2 MCV 85.6 MCH 28.2 MCHC 32.9 RDW Std Deviation 44.4 RDW Coeff of Celine 14.2 Plt Count 226 MPV 10.3 Sodium 134 L Potassium 3.6 Chloride 100 Carbon Dioxide 28 Anion Gap 6 BUN 23 Creatinine 0.88 Est Cr Clr Drug Dosing 95.6 Est GFR ( Amer) 100.9 Est GFR (Non-Af Amer) 87.0 BUN/Creatinine Ratio 26.1 H Glucose 134 H POC Glucose 172 H 104 H Calcium 8.3 L Phosphorus 2.0 L Magnesium 2.2 EBV Capsid Ag IgG Ab EBV Capsid Ag IgM Ab EBV EA Restrict+Diffuse EBV Nuclear Antigen Ab EBV Antibody Interp 03/11/24 03/12/24 03/12/24 20:19 00:30 04:33 WBC 17.51 H RBC 5.30 Hgb 15.0 Hct 44.5 MCV 84.0 MCH 28.3 MCHC 33.7 RDW Std Deviation 43.6 RDW Coeff of Celine 14.2 Plt Count 263 MPV 10.4 Sodium 137 Potassium 3.5 Chloride 102 Carbon Dioxide 28 Anion Gap 7 BUN 13 Creatinine 0.82 Est Cr Clr Drug Dosing 102.3 Est GFR ( Amer) 103.8 Est GFR (Non-Af Amer) 89.6 BUN/Creatinine Ratio 15.9 Glucose 100 H POC Glucose 98 112 H Calcium 8.7 Phosphorus 2.2 L Magnesium 2.0 EBV Capsid Ag IgG Ab EBV Capsid Ag IgM Ab EBV EA Restrict+Diffuse EBV Nuclear Antigen Ab EBV Antibody Interp 03/12/24 07:19 WBC RBC Hgb Hct MCV MCH MCHC RDW Std Deviation RDW Coeff of Celine Plt Count MPV Sodium Potassium Chloride Carbon Dioxide Anion Gap BUN Creatinine Est Cr Clr Drug Dosing Est GFR ( Amer) Est GFR (Non-Af Amer) BUN/Creatinine Ratio Glucose POC Glucose 98 Calcium Phosphorus Magnesium EBV Capsid Ag IgG Ab EBV Capsid Ag IgM Ab EBV EA Restrict+Diffuse EBV Nuclear Antigen Ab EBV Antibody Interp Microbiology 03/10/24 13:10 Blood Aerobic Blood Culture - Preliminary No growth in Aerobic bottle after 24 hours. 03/10/24 13:10 Blood Anaerobic Blood Culture - Final 03/10/24 14:20 Blood Aerobic Blood Culture - Preliminary No growth in Aerobic bottle after 24 hours. 03/10/24 14:20 Blood Anaerobic Blood Culture - Preliminary No growth in Anaerobic bottle after 24 hours. 03/09/24 17:45 Cerebral Spinal Fluid Gram Stain - Final 03/09/24 17:45 Cerebral Spinal Fluid CSF Culture - Final No growth 03/09/24 11:31 Blood Aerobic Blood Culture - Preliminary Group A Beta Strep 03/09/24 11:31 Blood Anaerobic Blood Culture - Preliminary Gram positive cocci in chains 03/09/24 11:26 Blood Aerobic Blood Culture - Final Group A Beta Strep 03/09/24 11:26 Blood Anaerobic Blood Culture - Final Group A Beta Strep
[2024-03-12] MEDS: POTASSIUM CHLORIDE CRTAB 20 MEQ TABCR PO STA (08:29)
[2024-03-12] MEDS: POT PHOSPHATE MONOBASIC W/ SOD TAB PO SCH (08:29)
[2024-03-12] MEDS: MULTIVITAMIN TAB PO SCH (10:06)
[2024-03-12] MEDS: TAMSULOSIN HCL 0.4 MG CAP PO SCH (10:06)
[2024-03-12] MEDS: LOSARTAN POTASSIUM 50 MG TAB PO SCH (10:06)
[2024-03-12] MEDS: hydroCHLOROthiazide 25 MG TAB PO SCH (10:06)
[2024-03-12] MEDS: LANTUS PER UNIT CHARGE SC SCH (12:32)
--- NOTE | 2024-03-12 14:21 | Pharmacy Report ---
Pharmacy Glycemic Short Note 2 - Date of Service March 12, 2024 - Glycemic Short BSG Results (Last 24 hours): 03/11/24 03/11/24 03/12/24 16:43 20:19 00:30 Glucose POC Glucose 104 H 98 112 H 03/12/24 03/12/24 03/12/24 04:33 07:19 11:33 Glucose 100 H POC Glucose 98 197 H OUTPATIENT ANTIDIABETIC REGIMEN: * Jardiance 25 mg once daily * Glipizide ER 10mg daily * Tresiba 26 units SC BID * Ozempic ASSESSMENT: 03/12 * No further steroids administered since 03/09, BSGS [phone] mg/dL yesterday. * Fasting 98 mg/dL, will continue 10 units of basal insulin today, initially held and then administered at lunch time * Loosened carb ratio with breakfast, patient w/ nausea last evening, minimal intake 03/10 * Patient admitted with increasing weakness and fatigue followed by fever, rigors and unresponsiveness. Patient was intubated and admitted to the ICU. * Concern for PARTS PROFESSIONAL infection and bcx now growing likely strep pyogenes. Patient is on multiple anti-infectives pending ID review. * Patient was extubated this morning and has a resumed a diet for lunch * Will use moderate stress weight based dosing for basal regimen. IV dexamethasone was administered last night and thus will leave tighter novolog scale through today and reassess tomorrow PLAN FOR INPATIENT GLYCEMIC CONTROL: * Hold outpatient oral diabetes medications * Basal insulin * Lantus 10 units sq QAM * Bolus insulin * NovoLog per scale ACHS or Q6hrs while NPO and overnight checks * Goal Range: Low 110 mg/dL - High 140 mg/dL * Correction Factor: 25 mg/dL/unit * Nutritional / Prandial insulin per carb ratio of 1 unit per 10 grams CHO consumed
[2024-03-12] MEDS: allopurinoL 300 MG TAB PO SCH (15:06)
[2024-03-12] MEDS: COLCHICINE 0.6 MG TAB PO SCH (15:06)
--- NOTE | 2024-03-12 15:38 | Hospitalist Progress Note ---
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 Also reported was sore throat and fevers few days prior to arrival. He reports taking azithromycin 500 mg 4 times daily for 5 days prior to arrival. He was saturating 88% on room air at presentation, was intubated in the ED due to concern about ability to protect airway given AMS at presentation. He is being managed for the following: Acute metabolic encephalopathy: Likely secondary to sepsis Bacteremia Severe sepsis POA: Heart rate/respiratory rate/WBC/temperature elevated at presentation. Lactate elevated at presentation. Sepsis likely secondary to above. Patient coming in with AMS and lethargy for about 2 weeks, associated with fever and sore throat few days prior to arrival. Patient reports taking erythromycin 500 mg 4 times daily for about 5 days prior to arrival. Patient denies any new cough symptoms prior to arrival. Admitting labs: WBC 19.5 K, sodium 132, potassium 3.3, lactate 2.1, magnesium 1.5, UA negative for infection, CSF with pleocytosis/increased glucose level/increased protein level, toxicology screen negative, viral panel negative, Anaplasma and Babesia smear negative. Admitting imagings: CXR with no acute finding. CTA chest with no evidence of PE or airspace consolidation. CT head with no acute finding. Follow-up on CSF serology, Q fever results, Rickettsia, typhus fever results. Admitting blood culture 03/09 positive for gram-positive cocci in chains. Follow-up final results. Follow-up 03/09 CSF fungal and bacterial culture. --> Bacterial Cx negative. Was initially on acyclovir/ampicillin/Rocephin/doxycycline/vancomycin---> ID on board, currently on iv rocephin, if continues to improve, plan to discharge on amoxicillin. f/u repeat bl cx. ECHO w/ no s/o vegetations. Patient is alert and oriented, vitals getting better/stable. Lactate normalized. WBC slowly trending down. Monitor replete electrolytes. Hypoxia: Saturating 88% on room air at presentation, was intubated at presentation due to concern of ability to protect airway. Extubated 03/10 morning. Monitor. Resolved. Other chronic medical conditions: Continue with/resume home meds as and when able. T2DM: Sliding scale insulin while in hospital. HTN: Continue home amlodipine hydrochlorothiazide and losartan as able. DVT Ppx: SQ heparin Code status: FULL Dispo: Downgrade to PCU. Admission and Anticipated Discharge Date Admission Date: March 09, 2024 Subjective Patient was seen and examined at bedside. Patient was sitting up in chair, on on room air, NAD, resting comfortably. Patient denies headache, reports appetite getting better, reports loose stool last evening, no loose stool today, reports feeling better Physical Exam Physical Exam: GENERAL: Alert and oriented x3. NAD, on RA. Does not appear tired. HEENT: No pallor, no icterus. Pupils equal, round and reactive to light. Oral mucosa moist. NECK: No JVD, no neck masses. HEART: S1 and S2 heard. Regular rate and rhythm. No murmur, no gallop. RESPIRATORY SYSTEM: Normal AP diameter. No accessory muscle use. No wheezing, no crackles. ABDOMEN: Soft, bowel sounds present, nontender, no distention. CENTRAL NERVOUS SYSTEM: No facial droop. Speech is clear. Obeys simple commands. Moves extremities. EXTREMITIES: No edema, no erythema seen. Results & Data Results & Data Vital Signs (Past 12 Hours) Vital Signs Temp Pulse Pulse Resp BP BP Pulse Ox 03/12/24 08:00 82 03/12/24 07:30 84 22 03/12/24 07:30 37.4 C 88 18 136/89 92 03/12/24 07:00 67 15 03/12/24 06:30 78 20 03/12/24 06:00 77 0 L 03/12/24 05:30 82 22 03/12/24 05:00 83 19 03/12/24 04:45 37 C 87 22 138/80 93 03/12/24 04:42 138/80 03/12/24 04:42 80 26 H 92 03/12/24 04:40 172/100 H 03/12/24 04:40 82 32 H 97 03/12/24 04:39 167/107 H 03/12/24 04:39 87 23 95 03/12/24 04:35 86 12 03/12/24 04:00 79 19 O2 Del Method O2 Flow Rate 03/12/24 08:00 03/12/24 07:30 03/12/24 07:30 Room Air 03/12/24 07:00 03/12/24 06:30 03/12/24 06:00 03/12/24 05:30 03/12/24 05:00 03/12/24 04:45 Nasal Cannula 2 03/12/24 04:42 03/12/24 04:42 03/12/24 04:40 03/12/24 04:40 03/12/24 04:39 03/12/24 04:39 03/12/24 04:35 03/12/24 04:00
[2024-03-12 16:26] LABS: Cryptococcal Antigen Not Detected (Not Detected); Source CSF
[2024-03-12] MEDS: CALCIUM CARBONATE 500 MG CHEWABLE TAB PO ONE (18:07)
[2024-03-12] MEDS: ADVANCED PROBIOTIC 625 MG CAPSULE PO SCH (18:08)
[2024-03-12] MEDS: PANTOprazole 40 MG TAB PO SCH (18:08)
[2024-03-12 20:37] LABS: Babesia microti DNA Not Detected (Not Detected)
[2024-03-12 21:47] LABS: HSV Type 1 DNA Not Detected (Not Detected); HSV Type 1&2 DNA Source Whole Blood; HSV Type 2 DNA Not Detected (Not Detected)
[2024-03-13 06:48] LABS: Hemoglobin 13.4 g/dl (14.0-18.0); Mean Corpuscular Hemoglobin 28.1 pg (25.0-34.0); Mean Corpuscular Hgb Conc 33.5 g/dL (32.0-36.0); Mean Corpuscular Volume 83.9 fL (80.0-100.0); Mean Platelet Volume 10.1 fL (9.4-12.4); Platelet Count 257 K/uL (130-400); RDW Coefficient of Variation 13.9 % (11.5-14.5); RDW Standard Deviation 42.3 fL (36.4-46.3); Red Blood Count 4.77 M/uL (4.70-6.10); White Blood Count 14.16 K/ul (4.8-10.8)
[2024-03-13 07:04] LABS: BUN Creatinine Ratio 17.9 (10-20); Calcium 8.4 mg/dl (8.6-10.3); Est GFR (African American) 112.8 ml/min; Est GFR (Non-African American) 97.4 ml/min; Magnesium 1.8 mg/dl (1.7-2.4); Phosphorus 2.8 mg/dl (2.5-4.9); Potassium 3.3 mmol/L (3.5-5.1)
[2024-03-13 07:43] LABS: Estimated Average Glucose 197 mg/dl; Hemoglobin A1C 8.5 % (4.5-5.6)
[2024-03-13] MEDS: ASPIRIN 325 MG ECTAB PO SCH (08:20)
[2024-03-13] MEDS: cefTRIAXone SODIUM 2,000 MG in DEXTROSE 5 % MINI-B 50 ML IV SCH (08:23)
[2024-03-13] MEDS ORDERED: POTASSIUM 75 MG PO SCH (09:00)
[2024-03-13] MEDS: POTASSIUM CHLORIDE CRTAB 20 MEQ TABCR PO STA (09:41)
--- NOTE | 2024-03-13 12:25 | Discharge Summary ---
Date of Service March 13, 2024 Admission HPI Per Admitting Provider This is a 68yo M with a PMH of DM II, HTN, dyslipidemia, GERD, statin intolerance and other medical problems listed below who presents to ED with SOB and lethargy. Family reports him running a fever over the last few days at home. 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 unsure if patient is around pesticides. Was 84% on RA on arrival. Does not require O2 at baseline. States he was complaining of feeling run down and started taking Erythromycin he found in his barn leftover from animals. not aware of any other medication changes. No complaints of headache, CP, abd pain or SOB to yesterday. Confirmed full code status. Condition declined while in ED and Dr. Zelaya intubated. ROS unobtainable due to mech vent and sedation. Admission Exam Per Admitting Provider Not available at the time of discharge. Principal Diagnosis Acute metabolic encephalopathy Bacteremia Severe sepsis POA Hypoxia Discharge Exam GENERAL: Alert and oriented x3. NAD, on RA. Looks fresh and active. HEENT: No pallor, no icterus. Pupils equal, round and reactive to light. Oral mucosa moist. NECK: No JVD, no neck masses. HEART: S1 and S2 heard. Regular rate and rhythm. No murmur, no gallop. RESPIRATORY SYSTEM: Normal AP diameter. No accessory muscle use. No wheezing, no crackles. ABDOMEN: Soft, bowel sounds present, nontender, no distention. CENTRAL NERVOUS SYSTEM: No facial droop. Speech is clear. Obeys simple commands. Moves extremities. EXTREMITIES: No edema, no erythema seen. Discharge Data Allergies Allergy/AdvReac Type Severity Reaction Status Date / Time No Known Allergies Allergy Unverified 09/12/14 09:34 Consultations 03/09/24 15:34 ED Decision to Admit Stat 03/09/24 16:45 Consult Quill Skinner Routine 03/09/24 19:38 Consult Infectious Diseases Routine Ordered Studies 03/09/24 12:30 CT for pulmonary embolism PE [CT angio chest PE protocol] Stat 03/09/24 15:36 CT head/brain wo con Stat Hospital Course (1) Encephalopathy: Plan 68-year-old male with PMH of T2DM, HTN, HLD, GERD, statin intolerance presented to the ED 03/09 with complaint of shortness of breath and lethargy for about 2 weeks [employer]. Also reported was sore throat and fevers few days prior to arrival. He reports taking azithromycin 500 mg 4 times daily for 5 days prior to arrival. He was saturating 88% on room air at presentation, was intubated in the ED due to concern about ability to protect airway given AMS at presentation. He was managed for the following: Acute metabolic encephalopathy: Likely secondary to sepsis Bacteremia Severe sepsis POA: Heart rate/respiratory rate/WBC/temperature elevated at presentation. Lactate elevated at presentation. Sepsis likely secondary to above. Patient coming in with AMS and lethargy for about 2 weeks, associated with fever and sore throat few days prior to arrival. Patient reports taking erythromycin 500 mg 4 times daily for about 5 days prior to arrival. Patient denies any new cough symptoms prior to arrival. Admitting labs: WBC 19.5 K, sodium 132, potassium 3.3, lactate 2.1, magnesium 1.5, UA negative for infection, CSF with pleocytosis/increased glucose level/increased protein level, toxicology screen negative, viral panel negative, Anaplasma and Babesia smear negative. Admitting imagings: CXR with no acute finding. CTA chest with no evidence of PE or airspace consolidation. CT head with no acute finding. Follow-up on CSF serology, Q fever results, Rickettsia, typhus fever results. Admitting blood culture 03/09 positive for gram-positive cocci in chains. Follow-up final results. Follow-up 03/09 CSF fungal and bacterial culture. --> Bacterial Cx negative. Patient made aware to follow-up with PCP office within a week time and follow-up on the final results of all the inpatient pending results. He voiced understanding. Was initially on acyclovir/ampicillin/Rocephin/doxycycline/vancomycin---> ID on board, currently on iv rocephin, patient continues to improve with improvement in WBC and patient has been afebrile, patient will be discharged on amoxicillin per ID recommendation. f/u repeat bl cx. ECHO w/ no s/o vegetations. Patient is hemodynamically stable and will be discharged today. Hypoxia: Saturating 88% on room air at presentation, was intubated at presentation due to concern of ability to protect airway. Extubated 03/10 morning. Monitor. Resolved. Other chronic medical conditions: Continue with/resume home meds as and when able. T2DM: Sliding scale insulin while in hospital. HTN: Continue home amlodipine hydrochlorothiazide and losartan as able. DVT Ppx: SQ heparin Code status: FULL Patient is being discharged to home with following instruction at the point of discharge: Follow-up with your primary care physician within a week time and likely you will need labs CBC/CMP/magnesium/phosphorus. You will be discharged on antibiotic to complete the course for your bacteremia. Follow-up on the final results of pending results at the time of discharge including CSF serology, Q fever results, Rickettsia, typhus fever results, final results of the blood culture and repeat blood culture, final results on the CSF fungal culture. If you have any increasing headache/blurry vision/weakness/numbness/tingling/high fever, report to your emergency or PCP immediately. Take your medications as prescribed. Please make sure that you are able to get your medications today by calling your pharmacy before you leave the hospital so that your treatment continuity is not broken. Home Health Attestation I certify that this patient is under my care and that I, or a physicians transportation assistant working with me, had a face to-face encounter that meets the home health [id number] encounter requirements with this patient. The encounter with the patient was in whole, or in part, for the following medical condition, which is the primary reason for home health care (list medical condition): I certify that, based on my findings, the following services are medically necessary home health services: My clinical findings support the need for the above services because: Further, I certify that my clinical findings support that this patient is ho mebound (i.e. absences from home require considerable and taxing effort and are for medical reasons or islam services or infrequently or of short duration when for other reasons) because: Certification for Home Health Services: Based on the above findings, I certify that this patient is confined to the home and needs intermittent [facility] care, physical therapy and/or speech therapy or continues to need occupational therapy. The patient is under my care, and I have initiated the establishment of the plan of care. This patient will be followed by a physician who will periodically review the plan of care. Total Time Total Time Spent Total Time Spent (In Minutes): 45 Discharge Plan Discharge Items Patient Disposition: Home - Self-Care Reason For Visit: SEPSIS, UNCLEAR SOURCE, ACUTE METABOLIC ENCEPH Discharge Diagnosis: Acute metabolic encephalopathy Bacteremia Severe sepsis POA Hypoxia Activity: Resume your previous activity Non-emergency contact: Primary Care Provider Call non-emergency contact if: you have any medication questions, your symptoms worsen and your temperature is above 101.5 Follow-up/Referrals: Harley West DO [Primary Care Provider] - (Date & Time 03/19/2024 1:40 PM Provider Harley West DO Department [facility] ) Diet: Carb Consistent or DM2 and Heart Healthy Addtl Attending Provider Instructions: Follow-up with your primary care physician within a week time and likely you will need labs CBC/CMP/magnesium/phosphorus. You will be discharged on antibiotic to complete the course for your bacteremia. Follow-up on the final results of pending results at the time of discharge including CSF serology, Q fever results, Rickettsia, typhus fever results, final results of the blood culture and repeat blood culture, final results on the CSF fungal culture. If you have any increasing headache/blurry vision/weakness/numbness/tingling/high fever, report to your emergency or PCP immediately. Take your medications as prescribed. Please make sure that you are able to get your medications today by calling your pharmacy before you leave the hospital so that your treatment continuity is not broken. Pending Studies at Discharge: Yes Stand-Alone Forms: My [facility], Smoking Cessation Medications and DC Order Prescriptions: New Advanced Probiotic 625 mg (10 billion cell) Capsule 1 cap PO DAILY 14 Days Qty: 14 0RF amoxicillin 500 mg tablet 1,000 mg PO TID 10 Days Qty: 60 0RF Continued omeprazole 20 mg Capsule,Delayed Release(Dr/Ec) 20 mg PO DAILY Qty: 30 allopurinol 300 mg Tablet 300 mg PO DAILY Qty: 30 hydrochlorothiazide 25 mg Tablet 25 mg PO DAILY Qty: 30 losartan 100 mg Tablet 100 mg PO DAILY Qty: 30 glipizide 10 mg tablet extended release 24hr 10 mg PO BID Rx Instructions: 30 mins before morning and evening meals. tamsulosin 0.4 mg capsule 0.4 mg PO DAILY amlodipine 10 mg tablet 10 mg PO DAILY insulin degludec [Tresiba FlexTouch U-200] 200 unit/mL (3 mL) insulin pen 26 unit SUBCUT AMPM Jardiance 25 mg tablet 25 mg PO DAILY Ozempic 0.25 mg or 0.5 mg (2 mg/3 mL) pen injector 0.25 mg SUBCUT UD Rx Instructions: 0.25 mg weekly for 4 weeks, then increase to 0.5 mg weekly aspirin 325 mg Tablet 325 mg PO DAILY vitamin B complex [B Complex Vitamin] Tablet 1 tab PO DAILY multivitamin Tablet 1 tab PO DAILY ibuprofen 800 mg Tablet 800 mg PO Q8H PRN (Reason: Pain) potassium 75 mg Tablet 75 mg PO DAILY vitamin E 400 unit Tablet 45 mg PO DAILY Changed colchicine 0.6 mg tablet 0.6 mg PO BID Qty: 60 0RF Discharge Orders: Discharge Order (Routine); Ordered 03/13/24 Ordered By: Tal Gould Admission Data Admit Date/Time: 03/09/24 15:36 Attending Provider: Tal Gould Admit Provider: Mikey Capone Primary Care Provider: Harley West Other Providers: Mikey Capone; Jameson Mensah; Kaia Velazquez; Evelyn Ramirez; Valeria Paniagua; Kim Reid; Jessy Jiménez; Zeina Astorga; Piper Hernandez; Kiara Schultz
[2024-03-13 15:07] LABS: Ehrlichia chaff DNA Bld Negative (Negative)
[2024-03-13 17:27] LABS: Lyme DNA PCR CSF or Synovial Not Detected (Not Detected); Lyme DNA Source CSF
[2024-03-14] MEDS ORDERED: INSULIN ASPART PER UNIT CHARGE SC SCH (02:00)
== END 2024-03-13 14:56 | disposition home or self-care (01) | DRG 871 ==
LOC: ED 11:08 → SUATTDRO 15:36 → 1E 15:36 → 2S 03-12 16:47